=== PATIENT | male | born 1950 | race Caucasian/White ===

== ENCOUNTER → 2016-09-18 | Outpatient (CLI) | payer MEDICARE ==
[2016-09-18 12:17] VITALS: BMI 23.0
== END ==
LOC: MNTWWP 10:43
PROVIDERS: ATTEND Internal Medicine
DX: G20 Parkinson's disease (principal); R13.10 Dysphagia, unspecified
CPT/HCPCS: 97802

== ENCOUNTER 2018-01-15 08:33 | Emergency (ER) | payer MEDICARE ==
[2018-01-15 08:41] VITALS: RESP 18
[2018-01-15] MEDS ORDERED: LIDOCAINE URO-JET JELLY 2% 5 ML KIT URETHRAL ONE (09:31)
--- NOTE | 2018-01-15 09:47 | ED ---
General Adult HPI - General Chief complaint: Recheck/Abnormal Lab/Rx Stated complaint: Feeding tube came out Time Seen by Provider: 01/15/18 08:46 Source: patient, RN notes reviewed, old records reviewed Mode of arrival: wheelchair Limitations: no limitations - History of Present Illness Initial comments: This Patient is a 67-year-old male presents emergency department today with concerns for J-tube removal. Patient reports that today while he is walking with walker his J-tube got caught on the edge of his walker and it pulled out. Patient's reports that it pulled out approximately 10 inches. She then reinserted the tube. Patient states that he's been having poor function with his J-tube. Patient reports that he uses this for his nightly medications and feeding. Patient has a history of Parkinson's disease. He has had this J-tube for the past 3 years. - Related Data Home Medications Medication Instructions Recorded Confirmed ALPRAZolam [Xanax] 0.5 mg PO 5XD PRN 01/15/18 01/15/18 Carbidopa-Levodopa 25-100 mg 1 tab PO TID PRN 01/15/18 01/15/18 [Sinemet 25-100] Carbidopa/Levodopa [Duopa 4.63 1 dose PEJ/J-TUBE DIRECTED 01/15/18 01/15/18 mg-20 mg/ml Susp] Levothyroxine Sodium [Synthroid] 150 mcg PO DAILY 01/15/18 01/15/18 Zolpidem [Ambien] 10 mg PO HS 01/15/18 01/15/18 Allergies Allergy/AdvReac Type Severity Reaction Status Date / Time No Known Allergies Allergy Verified 01/15/18 09:01 Review of Systems ROS Statement: Those systems with pertinent positive or pertinent negative responses have been documented in the HPI. ROS Other: All systems not noted in ROS Statement are negative. Past Medical History Additional Past Medical History / Comment(s): Parkinsons disease, detached retina History of Any Multi-Drug Resistant Organisms: None Reported Additional Past Surgical History / Comment(s): Feeding tube placed, Past Psychological History: No Psychological Hx Reported Smoking Status: Former smoker Past Alcohol Use History: None Reported Past Drug Use History: None Reported General Exam - General Exam Comments Initial Comments: Is a pleasant 59-year-old male. Alert and oriented. No significant distress. Limitations: no limitations General appearance: alert, in no apparent distress Head exam: Present: atraumatic, normocephalic, normal inspection Eye exam: Present: normal appearance, PERRL, EOMI. Absent: scleral icterus, conjunctival injection, periorbital swelling ENT exam: Present: normal exam, mucous membranes moist Neck exam: Present: normal inspection. Absent: tenderness, meningismus, lymphadenopathy Respiratory exam: Present: normal lung sounds bilaterally. Absent: respiratory distress, wheezes, rales, rhonchi, stridor Cardiovascular Exam: Present: regular rate, normal rhythm, normal heart sounds. Absent: systolic murmur, diastolic murmur, rubs, gallop, clicks GI/Abdominal exam: Present: soft, normal bowel sounds, other (Evidence of J- tube over the left upper quadrant. The area is slightly erythematous with some bloody discharge around the entrance site. The J-tube does seem to be placed externally.). Absent: distended, tenderness, guarding, rebound, rigid Extremities exam: Present: normal inspection, full ROM, normal capillary refill. Absent: tenderness, pedal edema, joint swelling, calf tenderness Back exam: Present: normal inspection Course Vital Signs 01/15/18 08:36 Temperature 98.3 F Pulse Rate 102 H Respiratory 18 Rate Blood Pressure 108/67 O2 Sat by Pulse 96 Oximetry Medical Decision Making - Medical Decision Making This patient's a 59-year-old male present emergency department today with chief complaint of J tube displacement. Patient has some bloody discharge around the J-tube site. Patient had his insert the J-tube again. We did do an x-ray with Gastrografin and show a kinked J-tube within the stomach according to radiology. He is in no pain. He otherwise appears in no distress. His surgeon is Dr. Muniz at [facility]. We did discuss the case with on-call surgeon Dr. Maharaj who recommends transfer to patient's original surgeon. I did discuss case with Dr. Espino at [facility] and he does accept the transfer. Patient will be transferred down in private vehicle. We did apply dressing and tape over the adjacent tube site at this time prior to his discharge. - Radiology Data Radiology results: report reviewed Report shows a crit placement of a G-tube. On calling the radiologist they do state that the jejunostomy tube is out of place andwithin the stomach. Disposition Clinical Impression: Jejunostomy tube fell out Disposition: DC/TRNS INTERMEDIATE CARE FAC Condition: Stable Is patient prescribed a controlled substance at d/c from ED?: No Referrals: Zen Encinas MD [Primary Care Provider] - 1-2 days Time of Disposition: 11:42 - Out of Hospital Transfer - Req. Specs Out of Hospital Transfer - Requested Specifics: Other Emergency Center ([facility])
--- NOTE | 2018-01-15 11:01 | XR ---
EXAMINATION TYPE: XR KUB DATE OF EXAM: 01/15/2018 COMPARISON: NONE HISTORY: Pain TECHNIQUE: One view abdominal series FINDINGS: The osseous structures are intact. The bowel gas pattern is nonspecific. There appears to be a gastr ostomy tube with contrast within the stomach and small bowel. No diagnostic evidence of extravasation . Lung bases clear. IMPRESSION: 1. There is to be a G-tube in position with contrast filling the stomach and small bowel.
[2018-01-15 12:10] VITALS: BP 142/83; PULSE 106; TEMP 98.1
== END 2018-01-15 12:09 ==
LOC: EC 08:33
DX: K94.23 Gastrostomy malfunction (principal); G20 Parkinson's disease; Z87.891 Personal history of nicotine dependence; Z79.899 Other long term (current) drug therapy
CPT/HCPCS: 74018; 99284; Q9967

== ENCOUNTER 2020-08-04 11:55 | Inpatient (IN) | payer MEDICARE, OTHER ==
[2020-08-04 13:04] LABS: Glucose,Whole Blood 109 mg/dL (75-99)
[2020-08-04 13:13] LABS: Basophils % (A) 0 %; Eosinophils % (A) 0 %; HCT 47.4 % (39.0-53.0); HGB 15.3 gm/dL (13.0-17.5); Lymphocytes # (A) 1.2 k/uL (1.0-4.8); Lymphocytes % (A) 12 %; MCH 32.8 pg (25.0-35.0); MCHC 32.2 g/dL (31.0-37.0); MCV 101.8 fL (80.0-100.0); Macrocytosis Slight; Monocytes # (A) 0.6 k/uL (0-1.0); Monocytes % (A) 6 %; Neutrophils # (A) 8.1 k/uL (1.3-7.7); Neutrophils % (A) 80 %; Platelet Count 209 k/uL (150-450); RBC 4.65 m/uL (4.30-5.90)
[2020-08-04 13:23] LABS: ALT 49 U/L (4-49); AST 37 U/L (17-59); African American GFR (CKD) 77 (>60 ml/min/1.73 sqM); Alkaline Phosphatase 142 U/L (38-126); Anion Gap 9 mmol/L; Blood Urea Nitrogen 39 mg/dL (9-20); Calcium 9.3 mg/dL (8.4-10.2); Carbon Dioxide 25 mmol/L (22-30); Chloride 110 mmol/L (98-107); Creatine Kinase 309 U/L (55-170); Glucose 114 mg/dL (74-99); Non-African American GFR(CKD) 66 (>60 ml/min/1.73 sqM); Potassium 4.4 mmol/L (3.5-5.1); Sodium 144 mmol/L (137-145); Total Bilirubin 0.8 mg/dL (0.2-1.3); Total Protein 6.4 g/dL (6.3-8.2)
--- NOTE | 2020-08-04 13:23 | ED ---
Altered Mental Status HPI - General Chief Complaint: Altered Mental Status Stated Complaint: AMS Time Seen by Provider: 08/04/20 12:00 Source: patient, EMS Mode of arrival: EMS Limitations: altered mental status - History of Present Illness Initial Comments: 69-year-old male past medical history of Parkinson's who presents to the emergency department with reported aggressive behavior and altered mental status. states that for the previous several days the patient has had worsening aggressive behavior and altered mental status. She states that the patient's baseline he is nonverbal and noncombative. He follows with Dr. Stallworth from neurology who 1.5 weeks ago increased his amantadine from 68.5 to 137 mg. he was then seen in office again on Saturday and they increased his dose to 274 mg. reports that since his medication changes were made the patient has had multiple falls, the last of which was this morning. States the patient fell backwards and he reported that he hit his head on a wooden box however there are no external signs of trauma. Patient also has some healing abrasions to his right burnett and left fourth finger due to previous falls earlier this week. The denies any recent illnesses. No fevers or chills. Reports that his Synthroid was also decreased by Dr. Noyola recently. Denies previous similar episodes. No changes in his bowel or bladder habits. Patient has not slept in the past 24 hours. No other alleviating, precipitating or modifying factors. - Related Data Home Medications Medication Instructions Recorded Confirmed ALPRAZolam [Xanax] 0.5 mg PO 5XD PRN 01/15/18 08/04/20 Carbidopa/Levodopa [Duopa 4.63 1 dose INTRATHECA CONTINUOUS 01/15/18 08/04/20 mg-20 mg/ml Susp] Zolpidem [Ambien] 10 mg PO HS 01/15/18 08/04/20 Amantadine HCl [Gocovri] 68.5 mg PO BID 08/04/20 08/04/20 Levothyroxine Sodium [Synthroid] 125 mcg PO DAILY 08/04/20 08/04/20 Allergies Allergy/AdvReac Type Severity Reaction Status Date / Time Sulfa (Sulfonamide Allergy Unknown Verified 08/04/20 13:10 Antibiotics) Review of Systems ROS Statement: Those systems with pertinent positive or pertinent negative responses have been documented in the HPI. ROS Other: All systems not noted in ROS Statement are negative. Past Medical History Additional Past Medical History / Comment(s): Parkinsons disease, detached retina History of Any Multi-Drug Resistant Organisms: None Reported Additional Past Surgical History / Comment(s): Feeding tube placed, Past Psychological History: No Psychological Hx Reported Past Alcohol Use History: None Reported Past Drug Use History: None Reported General Exam Limitations: altered mental status General appearance: alert, anxious, other (restless) Head exam: Present: atraumatic, normocephalic, normal inspection Eye exam: Present: normal appearance, PERRL, EOMI. Absent: scleral icterus, conjunctival injection, periorbital swelling ENT exam: Present: normal exam, mucous membranes moist Neck exam: Present: normal inspection. Absent: tenderness, meningismus, lymphadenopathy Respiratory exam: Present: normal lung sounds bilaterally. Absent: respiratory distress, wheezes, rales, rhonchi, stridor Cardiovascular Exam: Present: regular rate, normal rhythm, normal heart sounds. Absent: systolic murmur, diastolic murmur, rubs, gallop, clicks GI/Abdominal exam: Present: soft, normal bowel sounds. Absent: distended, tenderness, guarding, rebound, rigid Extremities exam: Present: other (healed abrasions right burnett, ecchymosis full circumferential left 4th digit. ) Back exam: Present: other (ecchymosis right flank) Course Vital Signs 08/04/20 08/04/20 12:01 17:35 Temperature 98.6 F Pulse Rate 97 100 Respiratory 18 22 Rate Blood Pressure 145/81 140/77 O2 Sat by Pulse 94 L 98 Oximetry Medical Decision Making - Medical Decision Making Upon arrival patient is placed into room 24. There are history of systems performed. Laboratory studies were conducted. I did order a CT of the patient's brain as well as an x-ray of the patient's right burnett and left hand. Patient becomes acutely agitated and therefore he is given 50 mg Benadryl. Patient has worsening agitation when attempting imaging and therefore he is given 10 mg of Zyprexa. I spoke with Dr. Noyola in regards to his presentation. He agreed to admit the patient's and placed neurology consultation. I will hold the patient's Amantadine. agreed to the treatment plan and the patie nt is currently waiting up on the floor - Lab Data Result diagrams: 08/05/20 05:58 08/05/20 05:58 Lab Results 08/04/20 08/04/20 08/04/20 Range/Units 12:51 12:51 12:51 WBC 10.0 (3.8-10.6) k/uL RBC 4.65 (4.30-5.90) m/uL Hgb 15.3 (13.0-17.5) gm/dL Hct 47.4 (39.0-53.0) % MCV 101.8 H (80.0-100.0) fL MCH 32.8 (25.0-35.0) pg MCHC 32.2 (31.0-37.0) g/dL RDW 13.0 (11.5-15.5) % Plt Count 209 (150-450) k/uL MPV 8.0 Neutrophils % 80 % Lymphocytes % 12 % Monocytes % 6 % Eosinophils % 0 % Basophils % 0 % Neutrophils # 8.1 H (1.3-7.7) k/uL Lymphocytes # 1.2 (1.0-4.8) k/uL Monocytes # 0.6 (0-1.0) k/uL Eosinophils # 0.0 (0-0.7) k/uL Basophils # 0.0 (0-0.2) k/uL Macrocytosis Slight PT 11.2 (9.0-12.0) sec INR 1.1 (<1.2) APTT 27.1 (22.0-30.0) sec Sodium (137-145) mmol/L Potassium (3.5-5.1) mmol/L Chloride (98-107) mmol/L Carbon Dioxide (22-30) mmol/L Anion Gap mmol/L BUN (9-20) mg/dL Creatinine (0.66-1.25) mg/dL Est GFR (CKD-EPI)AfAm (>60 ml/min/1.73 sqM) Est GFR (CKD-EPI)NonAf (>60 ml/min/1.73 sqM) Glucose (74-99) mg/dL POC Glucose (mg/dL) (75-99) mg/dL POC Glu Rehabilitation Caseworker ID Calcium (8.4-10.2) mg/dL Total Bilirubin (0.2-1.3) mg/dL AST (17-59) U/L ALT (4-49) U/L Alkaline Phosphatase (38-126) U/L Creatine Kinase (55-170) U/L Troponin I (0.000-0.034) ng/mL Total Protein (6.3-8.2) g/dL Albumin (3.5-5.0) g/dL TSH (0.465-4.680) mIU/L Free T4 (0.78-2.19) ng/dL Urine Color Yellow Urine Appearance Clear (Clear) Urine pH 6.5 (5.0-8.0) Ur Specific [place] 1.028 (1.001-1.035) Urine Protein 1+ H (Negative) Urine Glucose (UA) Negative (Negative) Urine Ketones 1+ H (Negative) Urine Blood Negative (Negative) Urine Nitrite Negative (Negative) Urine Bilirubin Negative (Negative) Urine Urobilinogen 2.0 (<2.0) mg/dL Ur Leukocyte Esterase Negative (Negative) Urine RBC 1 (0-5) /hpf Urine WBC 3 (0-5) /hpf Ur Squamous Epith Cells 1 (0-4) /hpf Urine Mucus Occasional H (None) /hpf 08/04/20 08/04/20 08/04/20 Range/Units 12:51 12:51 13:02 WBC (3.8-10.6) k/uL RBC (4.30-5.90) m/uL Hgb (13.0-17.5) gm/dL Hct (39.0-53.0) % MCV (80.0-100.0) fL MCH (25.0-35.0) pg MCHC (31.0-37.0) g/dL RDW (11.5-15.5) % Plt Count (150-450) k/uL MPV Neutrophils % % Lymphocytes % % Monocytes % % Eosinophils % % Basophils % % Neutrophils # (1.3-7.7) k/uL Lymphocytes # (1.0-4.8) k/uL Monocytes # (0-1.0) k/uL Eosinophils # (0-0.7) k/uL Basophils # (0-0.2) k/uL Macrocytosis PT (9.0-12.0) sec INR (<1.2) APTT (22.0-30.0) sec Sodium 144 (137-145) mmol/L Potassium 4.4 (3.5-5.1) mmol/L Chloride 110 H (98-107) mmol/L Carbon Dioxide 25 (22-30) mmol/L Anion Gap 9 mmol/L BUN 39 H (9-20) mg/dL Creatinine 1.12 (0.66-1.25) mg/dL Est GFR (CKD-EPI)AfAm 77 (>60 ml/min/1.73 sqM) Est GFR (CKD-EPI)NonAf 66 (>60 ml/min/1.73 sqM) Glucose 114 H (74-99) mg/dL POC Glucose (mg/dL) 109 H (75-99) mg/dL POC Glu Rehabilitation Caseworker ID Abe Marie Calcium 9.3 (8.4-10.2) mg/dL Total Bilirubin 0.8 (0.2-1.3) mg/dL AST 37 (17-59) U/L ALT 49 (4-49) U/L Alkaline Phosphatase 142 H (38-126) U/L Creatine Kinase 309 H (55-170) U/L Troponin I 0.026 (0.000-0.034) ng/mL Total Protein 6.4 (6.3-8.2) g/dL Albumin 4.0 (3.5-5.0) g/dL TSH <0.015 L (0.465-4.680) mIU/L Free T4 1.82 (0.78-2.19) ng/dL Urine Color Urine Appearance (Clear) Urine pH (5.0-8.0) Ur Specific [place] (1.001-1.035) Urine Protein (Negative) Urine Glucose (UA) (Negative) Urine Ketones (Negative) Urine Blood (Negative) Urine Nitrite (Negative) Urine Bilirubin (Negative) Urine Urobilinogen (<2.0) mg/dL Ur Leukocyte Esterase (Negative) Urine RBC (0-5) /hpf Urine WBC (0-5) /hpf Ur Squamous Epith Cells (0-4) /hpf Urine Mucus (None) /hpf - EKG Data EKG Comments: EKG demonstrates a normal sinus rhythm with a ventricular rate of 94. CA interval 174. QRS 180. QTC of 500. No acute ST segment elevations. Artifact secondary to simulator Disposition Clinical Impression: Acute encephalopathy, Parkinsons disease, Aggressive behavior, Medication adverse effect Disposition: ADMITTED IP TO THIS [facility] Condition: Stable Is patient prescribed a controlled substance at d/c from ED?: No Decision to Admit Reason: Admit from EC Decision Date: 08/04/20 Decision Time: 14:26
[2020-08-04 13:35] LABS: INR 1.1 (<1.2); Partial Thromboplastin Time 27.1 sec (22.0-30.0); Prothrombin Time 11.2 sec (9.0-12.0)
[2020-08-04] MEDS ORDERED: diphenhydrAMINE 50 MG/ML 1 ML VIAL IVP STA (14:09)
[2020-08-04 14:27] LABS: T4, Free (Free Thyroxine) 1.82 ng/dL (0.78-2.19)
[2020-08-04] MEDS ORDERED: NALOXONE 0.4 MG/ML 1 ML VIAL IV PRN (14:28)
[2020-08-04] MEDS ORDERED: OLANZapine 10 MG VIAL IM STA (15:13)
[2020-08-04 16:07] LABS: Appearance,Urine Clear (Clear); Bilirubin,Urine Negative (Negative); Blood,Urine Negative (Negative); Color,Urine Yellow; Glucose,Urine (UA) Negative (Negative); Ketones,Urine 1+ (Negative); Leukocyte Esterase,Urine Negative (Negative); Mucus,Urine Occasional /hpf; Nitrite,Urine Negative (Negative); PH, Urine 6.5 (5.0-8.0); Protein,Urine 1+ (Negative); RBC,Urine 1 /hpf (0-5); Specific Gravity,Urine 1.028 (1.001-1.035); Squamous Epithelial Cell,Urine 1 /hpf (0-4); WBC,Urine 3 /hpf (0-5)
--- NOTE | 2020-08-04 16:25 | XR ---
EXAMINATION TYPE: XR chest 1V DATE OF EXAM: 08/04/2020 COMPARISON: NONE HISTORY: Altered mental status and weakness. TECHNIQUE: Single frontal view of the chest is obtained. FINDINGS: There is chronic parenchymal change without suspicious focal air space opacity, pleural ef fusion, or pneumothorax seen. The cardiac silhouette size is mildly enlarged. The osseous structur es are intact. Bilateral overlying neck or intracranial stimulator devices are partially imaged. IMPRESSION: Mild cardiomegaly and chronic changes without acute pulmonary process.
--- NOTE | 2020-08-04 16:27 | XR ---
EXAMINATION TYPE: XR tibia fibula LT DATE OF EXAM: 08/04/2020 CLINICAL HISTORY: Fall injury with pain TECHNIQUE: Two views of the left leg are obtained. COMPARISON: None. FINDINGS: There is no acute fracture or dislocation seen in the left tibia or fibula. [place] osseou s structures are demineralized. Mild to moderate tricompartment joint space loss with mild spurring o f the left knee. The ankle mortise symmetry is preserved. Overlying clothing or blanket material is p resent. IMPRESSION: There is no acute fracture or dislocation seen in the left tibia or fibula.
--- NOTE | 2020-08-04 16:30 | XR ---
EXAMINATION TYPE: XR hand complete LT DATE OF EXAM: 08/04/2020 CLINICAL HISTORY: Falling injury with pain TECHNIQUE: Frontal, lateral and oblique images of the left hand are obtained. COMPARISON: None. FINDINGS: [place] osseous structures are demineralized. There is no acute fracture/dislocation evident in the left hand. Moderate narrowing and mild to moderate spurring throughout the PIP and DIP joints of the phalanges. Severe triscaphe joint space narrowing with joint space sclerosis and mild to mode rate spurring. Mild to moderate narrowing and spurring of base of first metacarpal. Peripheral IV rachel ng the dorsal aspect of the distal forearm is partially imaged. IMPRESSION: There is no acute fracture or dislocation in the left hand.
--- NOTE | 2020-08-04 17:14 | CT ---
EXAMINATION TYPE: CT brain raymundo uribe DATE OF EXAM: 08/04/2020 COMPARISON: None HISTORY: Mental status changes. CT DLP: 1475.9 mGycm Automated exposure control for dose reduction was used. TECHNIQUE: CT scan of the head and cervical spine are performed without contrast. FINDINGS: There is artifact on the exam. There is no acute intracranial hemorrhage, mass effect, or midline shift identified. The ventricles and sulci are within normal limits in size. Right frontal craniotomies, metallic leads are present coursing into the region of the thalami bilaterally. The globes are intact and the visualized sinuses are clear. There is some inflammatory change in the right maxillary sinus Cervical spine is visualized in its entirety from C1 through upper thoracic levels and demonstrates s atisfactory alignment. There is an ossific density at the level of the dens which is not felt likely to be acute, slight posterior displacement in relation to the dens, lesion appears well-corticated. 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 There is multilevel spondy losis. Anterolisthesis grade 1 C5-6, C6-7, there is loss of disc height at intervertebral levels, diana pect segmentation anomaly at C4-5, C5-6. Is multilevel facet arthropathy, foraminal encroachment. The re is accentuated lordosis present. Prevertebral soft tissue appears within normal limits. The C1-C 2 articulation is unremarkable. There is patchy density in the upper lobes peripherally. Generators present over the pectoral regions. Arthropathy is noted at the temporomandibular joints. IMPRESSION: 1. There is no acute fracture or dislocation evident in the cervical spine. 2. No acute intracranial hemorrhage, mass effect, or midline shift is seen. 3. Correlate for possible Covid pneumonia.
[2020-08-04] MEDS: CARBIDOPA MISCELLANE SCH (18:12)
[2020-08-04] MEDS: LEVODOPA MISCELLANE SCH (18:12)
[2020-08-04] MEDS ORDERED: ZIPRASIDONE 20 MG VIAL IM STA (20:29)
[2020-08-04] MEDS: HEPARIN SODIUM,PORCINE/PF 5,000 UNIT/0.5 ML SYRINGE SQ SCH (21:45)
[2020-08-04] MEDS: SODIUM CHLORIDE 0.9% 1,000 ML IV SCH (22:59)
[2020-08-05] MEDS ORDERED: ZIPRASIDONE 20 MG VIAL IM STA ×2 (00:32→22:16)
[2020-08-05] MEDS: SODIUM CHLORIDE 0.9% 1,000 ML IV SCH ×2 (06:06→17:38)
[2020-08-05] MEDS: LEVOTHYROXINE 125 MCG TAB PO SCH (06:06)
[2020-08-05] MEDS: HEPARIN SODIUM,PORCINE/PF 5,000 UNIT/0.5 ML SYRINGE SQ SCH ×2 (09:41→17:25)
[2020-08-05] MEDS: PANTOPRAZOLE 40 MG/10 ML VIAL IVP SCH (09:41)
--- NOTE | 2020-08-05 09:58 | P.CNNES ---
History of Present Illness Consult date: 08/05/20 Requesting physician: Joanna Cunningham Reason for Consult: acute encephalopathy, aggressive behavior History of Present Illness: This is a 69-year-old gentleman with medical history of Parkinson's disease, hypothyroidism, detached retina over the right who presented to the emergency department on 08/04/2020 for altered mental status and aggressive behavior. History is predominately obtained from the medical records and the patient nurse since patient is unable to provide all history. Per the medical record the stated that the patient has been having worsening of his mentation and been having aggressive behavior. Patient has not slept in the past 24 hours. It is reported that the patient had no fevers or chills. Not sure what the patient baseline neurological status. Patient does follow up with a Dr. Enohc Stallworth (neurologist) and is seems adequate the patient had increased amantadine from 68.5mg to 137mg about half 1 1/2 weeks ago then was increased to 274 mg this past Saturday. The noticed that the since the increase of medication the patient has been having more falls in the last one was a the morning prior to present thing to the hospital. Patient is been falling backward and he has had on a wooden box but she denied any external trauma. She is also on sentiments intrathecal continuous dose, patient is on Ambien 10 mg daily at bedtime, Synthroid, Xanax 0.5 mg 1 tablet 5 times a day as needed. It seems the patient aggressive behavior is better today than what he presented with. Patient notified me that he has history of Parkinson's disease but could not tell me for how long and is on Pump. Some of Work-up in the hospital consisted of: CT of the head is reported as no acute intracranial hemorrhage, mass effect or midline shift is seen. It seems that there is a metallic currently in the regions of the thalami bilaterally. CT cervical was reported as there is no acute fracture or dislocation evident in the cervical spine. It is mentioned to correlate for possible [place] pneumonia. White blood cell is 10.0. MCV is 101.8 and the hemoglobin and hematocrit are normal. Initial serum glucose 114. CK level is 309 which is slightly elevated. TSH is less than 0.015 (low) but the free T4 is 1.82 which is normal Review of Systems Review of system is limited but the prior positive and negative as per HPI Past Medical History Additional Past Medical History / Comment(s): Parkinsons disease, detached retina, thyroid removed dt pre cancerous cells History of Any Multi-Drug Resistant Organisms: None Reported Additional Past Surgical History / Comment(s): Feeding tube placed, Past Psychological History: No Psychological Hx Reported Smoking Status: Former smoker Past Alcohol Use History: None Reported Past Drug Use History: None Reported Medications and Allergies Home Medications Medication Instructions Recorded Confirmed Type ALPRAZolam [Xanax] 0.5 mg PO 5XD PRN 01/15/18 08/04/20 History Carbidopa/Levodopa [Duopa 4.63 1 dose INTRATHECA CONTINUOUS 01/15/18 08/04/20 History mg-20 mg/ml Susp] Zolpidem [Ambien] 10 mg PO HS 01/15/18 08/04/20 History Amantadine HCl [Gocovri] 68.5 mg PO BID 08/04/20 08/04/20 History Levothyroxine Sodium [Synthroid] 125 mcg PO DAILY 08/04/20 08/04/20 History Allergies Allergy/AdvReac Type Severity Reaction Status Date / Time Sulfa (Sulfonamide Allergy Unknown Verified 08/04/20 13:10 Antibiotics) Physical Examination - Vital Signs Vital Signs: Vital Signs Temp Pulse Pulse Resp BP BP Pulse Ox 08/05/20 08:00 97.9 F 85 23 135/64 95 08/05/20 01:01 98.5 F 93 20 119/62 93 L 08/04/20 21:52 98.2 F 91 20 150/81 94 L 08/04/20 17:53 98 F 94 16 132/70 94 L 08/04/20 17:35 100 22 140/77 98 08/04/20 12:01 98.6 F 97 18 145/81 94 L Intake and Output 08/04/20 08/05/20 08/05/20 22:59 06:59 14:59 Output Total 140 Balance -140 Output: Post Void Residual 140 Other: Voiding Method Urinal Urinal Diaper Diaper Incontinent Incontinent # Voids 2 2 Weight 73.936 kg 73.936 kg GENERAL: The patient is lying in bed and is not in acute distress. CHEST: The heart rate is regular rate rhythm. No murmurs to auscultation. LUNG: Clear to auscultation bilaterally no wheezing noted throughout. Not labored breathing. ABDOMEN/GI: Bowel sounds present in all 4 quadrants. No tenderness to palpation throughout. Has PEG tube. NEUROLOGICAL: Higher mental function: The patient is awake, alert, oriented to self and time. He could not tell me name of place and with options he did not respond. Patient is able to name coffee cup. He correctly answered name of [facility] and [place] Patient is following simple commands. No aphasia and no neglect. Cranial nerves: He has detached right retina (blind). While left eye is about 4mm and reactive to light. He had mask-like face. No facial weakness noted. Has mild to moderate dysarthria is noted. Rest of cranial nerves could not be assessed because of cooperation. Motor: Gait is deferred. The strength is able to move all extremities above gravity without focality. Bilateral hand chief executive are 5/5. Normal tone. No cogwheel rigidity. He would have occasional tremor of hand but did not seem resting tremor and were brief. Cerebellum: Could not assess. Sensation: Could not assess. Reflexes (right/left): 2+ throughout. Plantars are downgoing bilaterally. Results Urine is negative for urinary tract infection. SARS-COV2 PCR is not detected. RSV PCR is not detect. - Laboratory Findings CBC and BMP: 08/04/20 12:51 08/04/20 12:51 Abnormal Lab Findings: Abnormal Labs 08/04/20 08/04/20 08/04/20 12:51 12:51 12:51 MCV 101.8 H Neutrophils # 8.1 H Chloride 110 H BUN 39 H Glucose 114 H POC Glucose (mg/dL) Alkaline Phosphatase 142 H Creatine Kinase 309 H TSH <0.015 L Urine Protein 1+ H Urine Ketones 1+ H Urine Mucus Occasional H 08/04/20 13:02 MCV Neutrophils # Chloride BUN Glucose POC Glucose (mg/dL) 109 H Alkaline Phosphatase Creatine Kinase TSH Urine Protein Urine Ketones Urine Mucus Assessment and Plan Assessment: Patient aggression behavioral seems to be due to medication effect (amantadine)---seems to improved Parkinson's disease (on Carbidopa-Levodopa pump) Macrocytosis Hypothyroidism Plan: Continue carbidopa/levodopa via PEG tube. Agree with holding Amantadine. Amantadine can cause aggressive behavior symptom s. Consulted physical therapy and occupation therapy. I ordered Vitamin B12 and folate levels since patient has macrocytosis. Recommend Nuplazid (pimavanserin) as antipsychotic (but not available as f ormulary in the hospital) so can be prescribed as outpatient if patient continues to have psychotic behavior. Otherwise can try Seroquel 25mg qhs (and titrate up if needed). An EEG is not warranted at this time. Avoid any opiate/narcotic or sedative that would affect the patient's mentation. Will defer the rest of medical management to the primary team. Upon discharge the patient needs to follow-up with his Neurologist as outpatient (Dr. Enoch Stallworth) within 1-2 weeks. The plan is discussed with the patient's nurse. I attempted to contact the patient in the AM but no response (will try later). Manish Tolentino MD Neuro-Hospitalist. Time with Patient: Greater than 30
[2020-08-05 11:05] LABS: Basophils # (A) 0.04 X 10*3/uL (0.00-0.10); Basophils % (A) 0.4 %; Eosinophils # (A) 0.05 X 10*3/uL (0.04-0.35); Eosinophils % (A) 0.6 %; HCT 45.1 % (39.6-50.0); HGB 14.9 g/dL (13.0-17.0); Lymphocytes # (A) 1.97 X 10*3/uL (0.90-5.00); Lymphocytes % (A) 21.9 %; MCH 33.8 pg (27.0-32.0); MCV 102.3 fL (80.0-97.0); Mean Platelet Volume 11.7 fL (9.5-12.2); Monocytes # (A) 0.88 X 10*3/uL (0.20-1.00); Monocytes % (A) 9.8 %; Neutrophils # (A) 6.01 X 10*3/uL (1.80-7.70); Neutrophils % (A) 66.9 %; Platelet Count 192 X 10*3/uL (140-440); RBC 4.41 X 10*6/uL (4.40-5.60); RDW 12.6 % (11.5-14.5); WBC 8.99 X 10*3/uL (4.50-10.00)
[2020-08-05 14:11] LABS: Albumin 4.1 g/dL (3.80-4.90); Albumin/Globulin Ratio 2.16 (1.60-3.17); Anion Gap 9.8 mmol/L (4.00-12.00); Carbon Dioxide 25.2 mmol/L (21.6-31.8); Globulin 1.9 g/dL (1.6-3.3); Non-African American GFR(CKD) 75.9 (60.0-200.0); Potassium 4.1 mmol/L (3.5-5.5); Total Bilirubin 1.1 mg/dL (0.2-1.2)
--- NOTE | 2020-08-05 14:37 | P.HPIM ---
History of Present Illness H&P Date: 08/05/20 HISTORY OF PRESENT ILLNESS This is a 69-year-old male patient of Dr. Noyola with past medical history of Parkinson's disease status post intrathecal dopamine pump, hypothyroidism, vitamin D deficiency, detached right retina. His neurologist is Dr. Stallworth and he had recent family increased amantadine from 68.5 mg 237 mg one and half weeks ago and then increased to 174 mg on Saturday. Since the dose was increased, patient has had increasing weakness with falls, falling backward. Patient was brought into [facility] emergency center for evaluation. He was afebrile, heart rate 97, blood pressure 145/81, pulse ox 94% on room air. Last evening, patient received Zyprexa, Geodon and during evaluation today, aggressive behavior was improved. Patient has been seen by neurology with recommendations to continue carbidopa/levodopa via PEG tube, hold amantadine, consult PT and OT. Vitamin B12 and folate levels were ordered. Dr. Tolentino recommended Nuplazid (primavanserin) antipsychotic but not available in the hospital but can't be prescribed as an outpatient. Otherwise Seroquel 25 mg at bedtime and titrate up if needed. Recommendations also follow-up with his neurologist in 1-2 weeks after discharge. Laboratory studies: CBC was unremarkable. Electrolytes unremarkable. BUN 39 and creatinine 1.12. Blood sugar 114. SARS-CoV-2, RSV, and influenza not detected. CAT scan of the brain showed no acute intracranial hemorrhage, mass effect or midline shift. CAT scan of the cervical spine showed no acute fracture or dislocation. CAT scan mentions correlate for possible Covid pneumonia. Left hand x-ray shows no acute fracture or dislocation. Left tib-fib x-ray shows no acute fracture or dislocation. Chest x-ray reveals mild cardiomegaly and chronic changes without acute pulmonary process. REVIEW OF SYSTEMS Constitutional: No fever, no chills, no night sweats. No weight change. No weakness, fatigue or lethargy. No daytime sleepiness. EENT: No headache. No blurred vision or double vision, no loss of vision. No loss of Hearing, no ringing in the ears, no dizziness. No nasal drainage or congestion. No epistaxis. No sore throat. Lungs: No shortness of breath, cough, no sputum production. No wheezing. Cardiovascular: No chest pain, no lower extremity edema. No palpitations. No paroxysmal nocturnal dyspnea. No orthopnea. No lightheadedness or dizziness. No syncopal episodes. Abdominal: No abdominal pain. No nausea, vomiting. No diarrhea. No constipation. No bloody or tarry stools.. No loss of appetite. Genitourinary: No dysuria, increased frequency, urgency. No urinary retention. Musculoskeletal: No myalgias. No muscle weakness, no gait dysfunction, no frequent falls. No back pain. No neck pain. Integumentary: No wounds, no lesions. No rash or pruritus. No unusual bruising. No change in hair or nails. Neurologic: No aphasia. No facial droop. No change in mentation. No head injury. No headache. No paralysis. No paresthesia. Psychiatric: No depression. No anxiety. No mood swings. Endocrine: No abnormal blood sugars. No weight change. No excessive sweating or thirst. No cold intolerance. MEDICAL HISTORY Parkinson's disease status post intrathecal dopamine pump, hypothyroidism, vitamin D deficiency, detached right retina. SURGICAL HISTORY Thyroidectomy in 2004, deep brain stimulator in 2011, right eye retinal detachment in 2009, PEG tube insertion, intrathecal dopamine pump. SOCIAL HISTORY Patient smoked a pipe for 5 years and quit in 1987. He drinks 1-2 cups of caffeine per day. No marijuana use and no alcohol use. He lives at home with his . FAMILY HISTORY Father at age 84 from colon cancer. Mother at age 80 from lung cancer. Patient has 2 sisters and one has MS. Patient has 2 sons with no major medical problems. Patient has one daughter with no major medical problems.. PHYSICAL EXAMINATION Gen: This is a 69-year-old male patient resting in bed. He appears to be in no acute distress. HEENT: Head is atraumatic, normocephalic. Pupils round. Sclerae is anicteric. 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 Oral mucous membranes are dry. NECK: Supple. No JVD. No lymphadenopathy. No thyromegaly. LUNGS: Clear to auscultation. No wheezes or rhonchi. No intercostal retractio ns. HEART: Regular rate and rhythm. 2/6 systolic ejection murmur. ABDOMEN: Soft. Bowel sounds are present. No masses. No tenderness. PEG tube site with no signs of drainage, erythema. EXTREMITIES: No pedal edema. No calf tenderness. NEUROLOGICAL: Patient is awake, alert and oriented to person and able to follow simple commands no aphasia. Masklike face. Bilateral hand plant technician strong and equal. ASSESSMENT AND PLAN 1. Aggressive behavior with acute psychosis secondary to amantadine recently increased dosing. Amantadine on hold. Consult with neurology appreciated. Patient will be started on Seroquel 25 mg at hs. 2. Parkinson's disease on dopamine pump. Patient's to bring in pump device from home. Hold amantadine. Continue carbidopa levodopa via pump. 3. Moderate protein calorie malnutrition and risk for aspiration, chronic PEG tube. Dietitian consult to resume PEG tube feedings. 4. Hypothyroidism. Continue levothyroxine 125 g daily. 5. Vitamin D deficiency, stable. 6. Macrocytosis. Vitamin B12 and folate levels ordered. 7. GI prophylaxis. Pepcid 20 milligrams daily per PEG tube. 8. DVT prophylaxis. Heparin subcu. 9. COVID-19 testing negative. Patient has been hospitalized during a pandemic. Patient will be admitted to the hospital for a minimum of 2 night stay. DISCHARGE PLAN To be determined. Most likely return home. PT and OT consults. Impression and plan of care have been directed as dictated by the signing physician. Sofía Kulkarni nurse practitioner acting as scribe for signing physician. Past Medical History Additional Past Medical History / Comment(s): Parkinsons disease, detached retina, thyroid removed dt pre cancerous cells History of Any Multi-Drug Resistant Organisms: None Reported Additional Past Surgical History / Comment(s): Feeding tube placed, Past Psychological History: No Psychological Hx Reported Smoking Status: Former smoker Past Alcohol Use History: None Reported Past Drug Use History: None Reported Medications and Allergies Home Medications Medication Instructions Recorded Confirmed Type ALPRAZolam [Xanax] 0.5 mg PO 5XD PRN 01/15/18 08/04/20 History Carbidopa/Levodopa [Duopa 4.63 1 dose INTRATHECA CONTINUOUS 01/15/18 08/04/20 History mg-20 mg/ml Susp] Zolpidem [Ambien] 10 mg PO HS 01/15/18 08/04/20 History Amantadine HCl [Gocovri] 68.5 mg PO BID 08/04/20 08/04/20 History Levothyroxine Sodium [Synthroid] 125 mcg PO DAILY 08/04/20 08/04/20 History Allergies Allergy/AdvReac Type Severity Reaction Status Date / Time Sulfa (Sulfonamide Allergy Unknown Verified 08/04/20 13:10 Antibiotics) Physical Exam Vitals: Vital Signs Temp Pulse Pulse Resp BP BP Pulse Ox 08/05/20 01:01 98.5 F 93 20 119/62 93 L 08/04/20 21:52 98.2 F 91 20 150/81 94 L 08/04/20 17:53 98 F 94 16 132/70 94 L 08/04/20 17:35 100 22 140/77 98 08/04/20 12:01 98.6 F 97 18 145/81 94 L Intake and Output 08/04/20 08/05/20 08/05/20 22:59 06:59 14:59 Output Total 140 Balance -140 Output: Post Void Residual 140 Other: Voiding Method Urinal Urinal Diaper Diaper Incontinent Incontinent # Voids 2 2 Weight 73.936 kg Results CBC & Chem 7: 08/05/20 05:58 08/04/20 12:51 Labs: Abnormal Lab Results - Last 24 Hours (Table) 08/04/20 08/04/20 08/04/20 Range/Units 12:51 12:51 12:51 MCV 101.8 H (80.0-100.0) fL Neutrophils # 8.1 H (1.3-7.7) k/uL Chloride 110 H (98-107) mmol/L BUN 39 H (9-20) mg/dL Glucose 114 H (74-99) mg/dL POC Glucose (mg/dL) (75-99) mg/dL Alkaline Phosphatase 142 H (38-126) U/L Creatine Kinase 309 H (55-170) U/L TSH <0.015 L (0.465-4.680) mIU/L Urine Protein 1+ H (Negative) Urine Ketones 1+ H (Negative) Urine Mucus Occasional H (None) /hpf 08/04/20 Range/Units 13:02 MCV (80.0-100.0) fL Neutrophils # (1.3-7.7) k/uL Chloride (98-107) mmol/L BUN (9-20) mg/dL Glucose (74-99) mg/dL POC Glucose (mg/dL) 109 H (75-99) mg/dL Alkaline Phosphatase (38-126) U/L Creatine Kinase (55-170) U/L TSH (0.465-4.680) mIU/L Urine Protein (Negative) Urine Ketones (Negative) Urine Mucus (None) /hpf Thrombosis Risk Factor Assmnt - Choose All That Apply Each Risk Factor Represents 2 Points: Age 61-74 years Thrombosis Risk Factor Assessment Total Risk Factor Score: 2 Thrombosis Risk Factor Assessment Level: Low Risk
[2020-08-05] MEDS: CARBIDOPA MISCELLANE SCH (17:25)
[2020-08-05] MEDS: LEVODOPA MISCELLANE SCH (17:25)
[2020-08-05] MEDS ORDERED: ACETAMINOPHEN IV (For NPO) 1,000 MG in EMPTY BAG 1 BAG IVPB PRN (20:09)
[2020-08-05 20:45] LABS: Folate, Serum >24.0 ng/mL
[2020-08-05] MEDS ORDERED: QUEtiapine 25 MG TAB PO SCH (21:00)
[2020-08-06] MEDS: HEPARIN SODIUM,PORCINE/PF 5,000 UNIT/0.5 ML SYRINGE SQ SCH ×3 (00:45→17:31)
[2020-08-06] MEDS: LEVOTHYROXINE 125 MCG TAB PO SCH (06:51)
[2020-08-06] MEDS: FAMOTIDINE 20 MG TAB PEG/G-TUBE SCH (09:10)
[2020-08-06] MEDS: PANTOPRAZOLE 40 MG/10 ML VIAL IVP SCH (09:11)
[2020-08-06] MEDS: DEXTROSE 5%-0.45% NACL 1,000 ML IV SCH (09:12)
[2020-08-06] MEDS: CARBIDOPA MISCELLANE SCH (09:13)
[2020-08-06] MEDS: LEVODOPA MISCELLANE SCH (09:13)
[2020-08-06] MEDS: SODIUM CHLORIDE 0.9% 1,000 ML IV SCH (09:37)
--- NOTE | 2020-08-06 09:58 | P.PN ---
Subjective Progress Note Date: 08/06/20 HISTORY OF PRESENT ILLNESS This is a 69-year-old male patient of mine with past medical history of Parkinson's disease status post intrathecal dopamine pump, hypothyroidism, vitamin D deficiency, detached right retina. His neurologist is Dr. Stallworth and he had recent family increased amantadine from 68.5 mg 237 mg one and half weeks ago and then increased to 174 mg on Saturday. Since the dose was increased, patient has had increasing weakness with falls, falling backward. Patient was brought into [facility] emergency center for evaluation. He was afebrile, heart rate 97, blood pressure 145/81, pulse ox 94% on room air. Last evening, patient received Zyprexa, Geodon and during evaluation today, aggressive behavior was improved. Patient has been seen by neurology with recommendations to continue carbidopa/levodopa via PEG tube, hold amantadine, consult PT and OT. Vitamin B12 and folate levels were ordered. Dr. Tolentino recommended Nuplazid (primavanserin) antipsychotic but not available in the hospital but can't be prescribed as an outpatient. Otherwise Seroquel 25 mg at bedtime and titrate up if needed. Recommendations also follow-up with his neurologist in 1-2 weeks after discharge. Laboratory studies: CBC was unremarkable. Electrolytes unremarkable. BUN 39 and creatinine 1.12. Blood sugar 114. SARS-CoV-2, RSV, and influenza not dete cted. CAT scan of the brain showed no acute intracranial hemorrhage, mass effect or midline shift. CAT scan of the cervical spine showed no acute fracture or dislocation. CAT scan mentions correlate for possible Covid pneumonia. Left hand x-ray shows no acute fracture or dislocation. Left tib-fib x-ray shows no acute fracture or dislocation. Chest x-ray reveals mild cardiomegaly and chronic changes without acute pulmonary process. 08/06: Patient sitting up in bed and is more awake and alert today he continues to be a bit confused, he did receive Geodon 20 mg IM yesterday, his was at bed side and she was questioning whether or not the patient to be transferred to [facility] where his neurologist is, however I told her we can start the Duo-Dopa here in the hospital during the day and she is in charge and that she would be taken off at night, and resume his feeding at nighttime, patient is able to use some water, patient already was seen in consultation by neurology we'll continue the current treatment plan, patient can be discharged home on Saturday with Nuplazid I will try to get some samples from the office. REVIEW OF SYSTEMS Constitutional: No fever, no chills, no night sweats. No weight change. No weakness, fatigue or lethargy. No daytime sleepiness. EENT: No headache. No blurred vision or double vision, no loss of vision. No loss of Hearing, no ringing in the ears, no dizziness. No nasal drainage or congestion. No epistaxis. No sore throat. Lungs: No shortness of breath, cough, no sputum production. No wheezing. Cardiovascular: No chest pain, no lower extremity edema. No palpitations. No paroxysmal nocturnal dyspnea. No orthopnea. No lightheadedness or dizziness. No syncopal episodes. Abdominal: No abdominal pain. No nausea, vomiting. No diarrhea. No constipation. No bloody or tarry stools.. No loss of appetite. Genitourinary: No dysuria, increased frequency, urgency. No urinary retention. Musculoskeletal: No myalgias. No muscle weakness, no gait dysfunction, no frequent falls. No back pain. No neck pain. Integumentary: No wounds, no lesions. No rash or pruritus. No unusual bruising. No change in hair or nails. Neurologic: No aphasia. No facial droop. No change in mentation. No head injury. No headache. No paralysis. No paresthesia. Psychiatric: patient does appear to have some psychosis that appears to be better. Endocrine: No abnormal blood sugars. No weight change. No excessive sweating or thirst. No cold intolerance. PHYSICAL EXAMINATION Gen: This is a 69-year-old male patient resting in bed. He appears to be in no acute distress. HEENT: Head is atraumatic, normocephalic. Pupils round. Sclerae is anicteric. 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 Oral mucous membranes are dry, there is dopamine reservoirs bilaterally. NECK: Supple. No JVD. No lymphadenopathy. No thyromegaly. LUNGS: there is decreased breath sounds at the bases, few rhonchi, no expiratory wheezes, no chest wall tenderness, no intercostal retractions, bilateral batteries and upper chest. HEART: First heart sound is depressed, second heart sound is normal, there is no gallop or murmur, no rubs or heaves. ABDOMEN: Soft. Bowel sounds are present. No masses. No tenderness. PEG tube site with no signs of drainage, erythema. EXTREMITIES: No pedal edema. No calf tenderness. dorsalis pedis +2 bilaterally, bilateral hammertoes. NEUROLOGICAL: Patient is awake, alert and oriented to person and able to follow simple commands no aphasia. Masklike face. Bilateral hand proofer apprentice strong and equal, significant spasticity in the neck and upper torso. ASSESSMENT AND PLAN 1. Aggressive behavior with acute psychosis secondary to amantadine recently increased dosing. Amantadine on hold. Consult with neurology appreciated. continue to use Seroquel 25 mg orally at bedtime, we may have to use Geodon 20 mg IM as needed, patient will go home on Nuplazid I will try to get samples from the office. 2. Parkinson's disease on dopamine pump. Patient's to bring in pump device from home. Hold amantadine. Continue carbidopa levodopa via pump. physical therapy evaluation. 3. Moderate protein calorie malnutrition and risk for aspiration, chronic PEG tube. Dietitian consult to resume PEG tube feedings. 4. Hypothyroidism. Continue levothyroxine 125 g daily. 5. Vitamin D deficiency, stable. 6. Macrocytosis. Vitamin B12 and folate levels ordered. 7. GI prophylaxis. Pepcid 20 milligrams daily per PEG tube. 8. DVT prophylaxis. continue heparin 5000 units subcutaneously every 12 hours. 9. COVID-19 testing negative. Patient has been hospitalized during a pandemic. DISCHARGE PLAN To be determined. Most likely return home. PT and OT consults. Objective - Vital Signs Vital signs: Vital Signs Temp 98.4 F 08/06/20 08:00 Pulse 89 08/06/20 08:00 Resp 22 08/06/20 08:00 BP 134/78 08/06/20 08:00 Pulse Ox 97 08/06/20 08:00 Intake & Output 08/05/20 08/06/20 08/06/20 18:59 06:59 18:59 Intake Total 1100 Balance 1100 Weight 73.936 kg 79.5 kg Intake: IV 1100 Sodium Chloride 0.9% 1, 1100 000 ml @ 100 mls/hr IV . Q10H [facility] Rx#:[id number] Other: Voiding Method Urinal Urinal Diaper Diaper Incontinent Incontinent # Voids 1 - Labs CBC & Chem 7: 08/05/20 05:58 08/05/20 05:58 Labs: Abnormal Lab Results - Last 24 Hours (Table) 08/05/20 08/05/20 Range/Units 05:58 05:58 MCV 102.3 H (80.0-97.0) fL MCH 33.8 H (27.0-32.0) pg Sodium 148 H (135-145) mmol/L Chloride 113 H (96-109) mmol/L BUN 39.0 H (9.0-27.0) mg/dL BUN/Creatinine Ratio 39.00 H (12.00-20.00) Ratio AST 124 H (14-35) U/L ALT 67 H (10-49) U/L Alkaline Phosphatase 141 H (41-126) U/L Total Protein 6.0 L (6.2-8.2) g/dL
[2020-08-06] MEDS ORDERED: CYANOCOBALAMIN 1,000 MCG/ML 1 ML VIAL IM ONE (13:30)
[2020-08-06] MEDS ORDERED: diphenhydrAMINE 50 MG/ML 1 ML VIAL IVP STA ×2 (13:48→14:32)
--- NOTE | 2020-08-06 14:02 | P.PN ---
Subjective Progress Note Date: 08/06/20 The patient was seen at bedside and per the person's nurse he was awake, alert and answering appropriately. After his Duopa Bolus was given via PEG tube (same as instruction) given at home he starting become restless and rigid of all extremities and his toes were curling. His Duopa was stopped and the nurse felt he slightly improved but not as to what it was like before. Per the nurse he had his Duopa dose via PEG tube yesterday. Patient had a temperature of 100 Fahrenheit overnight at around 1944 Objective - Vital Signs Vital signs: Vital Signs Temp 98.4 F 08/06/20 08:00 Pulse 89 08/06/20 08:00 Resp 22 08/06/20 08:00 BP 134/78 08/06/20 08:00 Pulse Ox 97 08/06/20 08:00 Intake & Output 08/05/20 08/06/20 08/06/20 18:59 06:59 18:59 Intake Total 1100 Balance 1100 Weight 73.936 kg 79.5 kg Intake: IV 1100 Sodium Chloride 0.9% 1, 1100 000 ml @ 100 mls/hr IV . Q10H [facility] Rx#:[id number] Other: Voiding Method Urinal Urinal Diaper Diaper Diaper Incontinent Incontinent Incontinent # Voids 1 - Exam GENERAL: The patient is lying in bed and and seems restless. ABDOMEN/GI: Has PEG tube. NEUROLOGICAL: Higher mental function: The patient is awake, alert. He verbalized but I did not understand what he said. He actually was following few simple commands such as showing me a thumbs up and closing and opening eyes. o Cranial nerves: He has detached right retina (blind). While left eye is about 4mm and reactive to light. He was tracking me throughout the room. He had mask-like face. No facial weakness noted. Has mild to moderate dysarthria is noted. Rest of cranial nerves could not be assessed because of cooperation. Motor: Gait is deferred. The strength is could not assess because of his condition. He had increase tone in bilateral wrist and ankle region. He had his upper and lower extremities extended. He had tremor of bilateral upper and lower extremities distally. He also has restless movement of ankles. Cerebellum: Could not assess. Sensation: Could not assess. Reflexes: 2+ throughout. Plantars are downgoing bilaterally. - Labs CBC & Chem 7: 08/05/20 05:58 08/05/20 05:58 Labs: Abnormal Lab Results - Last 24 Hours (Table) 08/05/20 Range/Units 05:58 Sodium 148 H (135-145) mmol/L Chloride 113 H (96-109) mmol/L BUN 39.0 H (9.0-27.0) mg/dL BUN/Creatinine Ratio 39.00 H (12.00-20.00) Ratio AST 124 H (14-35) U/L ALT 67 H (10-49) U/L Alkaline Phosphatase 141 H (41-126) U/L Total Protein 6.0 L (6.2-8.2) g/dL Assessment and Plan Assessment: Acute dystonia-medication induced (Duopa) Altered mental status due to metabolic encephalopathy (elevated LFT, mild hypernatremia (likely dehydration/lack of oral intake). Rule out underlying infection especially with low grade fever. Patient aggression behavioral seems to be due to medication effect (amantadine)---seems to improved Advanced Parkinson's disease s/p deep brain stimulation and on Duopa and amantadine Mild elevated liver function test (LFT: AST to ALT 124/67) Mild hypernatremia Hypothyroidism Plan: I gave patient a STAT order of benadryl 25mg IVP X2 (total of 50mg). I also gave him a dose of Beztropine 1mg once. There was improvement in symptoms but not back to baseline so ordered another 1mg Benztropine. Regarding his Duopa via PEG tube will hold for now then will start once the patient condition improves and will cut his normal dose to avoid any side- effects (likely to be restarted tomorrow). In the mean time will start the patient on Sinemet 25-100mg 1 tab QID via PEG tube. Starting tomorrow if patient is doing better will start the patinet on Amandine (but lower dose) with Duopa (which combination can help avoid dystonic/dyskinetic) Consulted physical therapy and occupation therapy. Vitamin B12: 392 (normal), therefore I gave Vitamin B12 1000mcg IM once and then 1000mg daily. Folate >24 (normal). On Seroquel 25mg qhs. Will discontinue it. Recommend Nuplazid (pimavanserin) as antipsychotic (but not available as formulary in the hospital) so can be prescribed as outpatient if patient continues to have psychotic behavior. Avoid any opiate/narcotic or sedative that would affect the patient's mentation. Will defer the rest of medical management to the primary team. Upon discharge the patient needs to follow-up with his Neurologist as outpatient (Dr. Enoch Stallworth) within 1-2 weeks. The plan is discussed with the patient's nurse. UPATE: I spoke with the patient's (Kimber) via phone. She stated the patient has history with Parkinson's disease for 17 years. He has Deep brain stimulator 2011. He had PEG tube 4-5 years for Duopa. Per the , his medications been modified numerous time in the last 5 years. It seem the Duopa has been titrated down in the last one year. It seems the patient His continous rate is 1.8 but unsure of bolus. The was notified that by tomorrow if he does better possible consider restarting Duopa but a lower dose with amantadine. Manish Tolentino MD Neuro-Hospitalist. Time with Patient: Greater than 30
[2020-08-06] MEDS ORDERED: BENZTROPINE 2 MG/2 ML AMP IV STA ×2 (14:47→17:22)
[2020-08-06] MEDS: CARBIDOPA-LEVODOPA 25-100 MG 1 EACH TAB PO SCH ×2 (17:31→21:22)
[2020-08-07] MEDS: HEPARIN SODIUM,PORCINE/PF 5,000 UNIT/0.5 ML SYRINGE SQ SCH ×3 (00:33→16:01)
[2020-08-07] MEDS: LEVOTHYROXINE 125 MCG TAB PO SCH (05:45)
[2020-08-07] MEDS ORDERED: ACETAMINOPHEN IV (For NPO) 1,000 MG in EMPTY BAG 1 BAG IVPB PRN (07:59)
[2020-08-07] MEDS: DEXTROSE 5%-0.45% NACL 1,000 ML IV SCH ×2 (08:17→10:55)
--- NOTE | 2020-08-07 08:17 | XR ---
EXAMINATION TYPE: XR chest 1V portable DATE OF EXAM: 08/07/2020 COMPARISON: 08/05/2019 HISTORY: Fever TECHNIQUE: Single frontal view of the chest is obtained. FINDINGS: Elevated right hemidiaphragm. Stimulator devices obscure portions of the chest. No pneumot horax. No pleural effusion. Subsegmental right perihilar changes are noted in stable. IMPRESSION: 1. Right perihilar linear changes which atelectasis favored over infiltrate.
[2020-08-07] MEDS: FAMOTIDINE 20 MG TAB PEG/G-TUBE SCH (08:32)
[2020-08-07] MEDS: PANTOPRAZOLE 40 MG/10 ML VIAL IVP SCH (08:32)
[2020-08-07] MEDS: CYANOCOBALAMIN 500 MCG TAB PO SCH (08:32)
[2020-08-07] MEDS: CARBIDOPA-LEVODOPA 25-100 MG 1 EACH TAB PO SCH ×4 (08:55→20:55)
[2020-08-07] MEDS ORDERED: LORazepam 2 MG/ML INJ IV STA (08:56)
[2020-08-07 09:41] LABS: Basophils # (A) 0.06 X 10*3/uL (0.00-0.10); Basophils % (A) 0.5 %; Eosinophils # (A) 0.06 X 10*3/uL (0.04-0.35); Eosinophils % (A) 0.5 %; HCT 43.5 % (39.6-50.0); HGB 13.9 g/dL (13.0-17.0); Lymphocytes # (A) 1.41 X 10*3/uL (0.90-5.00); Lymphocytes % (A) 12.4 %; MCH 33.1 pg (27.0-32.0); MCV 103.6 fL (80.0-97.0); Mean Platelet Volume 11.7 fL (9.5-12.2); Monocytes # (A) 0.93 X 10*3/uL (0.20-1.00); Monocytes % (A) 8.2 %; Neutrophils # (A) 8.86 X 10*3/uL (1.80-7.70); Platelet Count 215 X 10*3/uL (140-440); RDW 12.8 % (11.5-14.5); WBC 11.37 X 10*3/uL (4.50-10.00)
--- NOTE | 2020-08-07 09:43 | P.PN ---
Subjective Progress Note Date: 08/07/20 HISTORY OF PRESENT ILLNESS This is a 69-year-old male patient of mine with past medical history of Parkinson's disease status post intrathecal dopamine pump, hypothyroidism, vitamin D deficiency, detached right retina. His neurologist is Dr. Stallworth and he had recent family increased amantadine from 68.5 mg 237 mg one and half weeks ago and then increased to 174 mg on Saturday. Since the dose was increased, patient has had increasing weakness with falls, falling backward. Patient was brought into [facility] emergency center for evaluation. He was afebrile, heart rate 97, blood pressure 145/81, pulse ox 94% on room air. Last evening, patient received Zyprexa, Geodon and during evaluation today, aggressive behavior was improved. Patient has been seen by neurology with recommendations to continue carbidopa/levodopa via PEG tube, hold amantadine, consult PT and OT. Vitamin B12 and folate levels were ordered. Dr. Tolentino recommended Nuplazid (primavanserin) antipsychotic but not available in the hospital but can't be prescribed as an outpatient. Otherwise Seroquel 25 mg at bedtime and titrate up if needed. Recommendations also follow-up with his neurologist in 1-2 weeks after discharge. Laboratory studies: CBC was unremarkable. Electrolytes unremarkable. BUN 39 and creatinine 1.12. Blood sugar 114. SARS-CoV-2, RSV, and influenza not dete cted. CAT scan of the brain showed no acute intracranial hemorrhage, mass effect or midline shift. CAT scan of the cervical spine showed no acute fracture or dislocation. CAT scan mentions correlate for possible Covid pneumonia. Left hand x-ray shows no acute fracture or dislocation. Left tib-fib x-ray shows no acute fracture or dislocation. Chest x-ray reveals mild cardiomegaly and chronic changes without acute pulmonary process. 08/06: Patient sitting up in bed and is more awake and alert today he continues to be a bit confused, he did receive Geodon 20 mg IM yesterday, his was at bed side and she was questioning whether or not the patient to be transferred to [facility] where his neurologist is, however I told her we can start the Duo-Dopa here in the hospital during the day and she is in charge and that she would be taken off at night, and resume his feeding at nighttime, patient is able to use some water, patient already was seen in consultation by neurology we'll continue the current treatment plan, patient can be discharged home on Saturday with Nuplazid I will try to get some samples from the office. 08/07: Patient is sitting up in bed he continues to be restless he was seen earlier by neurology, he was started on Sinemet through the tube feeding he could not tolerate his Duodopa, this will continue to be off, he is off Gocovri , he had low-grade temperature, he appears to be tachypneic, his body is warm, he had occasional cough, appears to be a bit short of breath, a stat portable chest was done showed right perihilar atelectasis versus infiltrate he would be started on IV antibiotic in the form of Zosyn 3.375 g IV piggyback every 8 hours, continue IV fluid will increase the rate to 1 25 mL an hour, monitor the patient urine output, monitor the patient urine culture and blood culture as well. REVIEW OF SYSTEMS Constitutional: Positive for fever, positive for chills, no night sweats. No weight change. positive for weakness, fatigue or lethargy. No daytime sleepiness. HEENT: No headache. No blurred vision or double vision, no loss of vision. No loss of Hearing, no ringing in the ears, no dizziness. No nasal drainage or congestion. No epistaxis. No sore throat. Lungs: positive for shortness of breath, positive for occasional cough, no sputum production. No wheezing. Cardiovascular: No chest pain, no lower extremity edema. No palpitations. No paroxysmal nocturnal dyspnea. No orthopnea. No lightheadedness or dizziness. No syncopal episodes. Abdominal: No abdominal pain. No nausea, vomiting. No diarrhea. No constipation. No bloody or tarry stools. Genitourinary: No dysuria, increased frequency, urgency. No urinary retention. Musculoskeletal: No myalgias. Positive for muscle weakness, positive for gait dysfunction, continues with restlessness and spasticity of the neck and upper torso. Integumentary: No wounds, no lesions. No rash or pruritus. No unusual bruising. No change in hair or nails. Neurologic: Continues to have encephalopathy , pressured speech, restlessness, spasticity of the upper torso and the neck. Psychiatric: patient does appear to have some psychosis that appears to be better. Endocrine: No abnormal blood sugars. No weight change. No excessive sweating or thirst. No cold intolerance. PHYSICAL EXAMINATION Gen: This is a 69-year-old male patient resting in bed in mild respiratory distress. HEENT: Head is atraumatic, normocephalic. Pupils round. Sclerae is anicteric. 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 Oral mucous membranes are dry, there is dopamine reservoirs bilaterally. NECK: Supple. No JVD. No lymphadenopathy. No thyromegaly. LUNGS: there is decreased breath sounds at the bases, few rhonchi, minimal expiratory wheezes, no chest wall tenderness, no intercostal retractions, bila teral batteries in upper chest. HEART: First heart sound is depressed, second heart sound is normal, there is no gallop or murmur, no rubs or heaves. ABDOMEN: Soft. Bowel sounds are present. No masses. No tenderness. PEG tube site with no signs of drainage, erythema. EXTREMITIES: No pedal edema. No calf tenderness. dorsalis pedis +2 bilaterally, bilateral hammertoes. NEUROLOGICAL: Patient is awake, alert and oriented to person and able to follow simple commands no aphasia. Masklike face. 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 ASSESSMENT AND PLAN 1. Aggressive behavior with acute psychosis secondary to amantadine recently increased dosing. Amantadine on hold. Consult with neurology appreciated. patient has been maintained on Seroquel 25 mg at bedtime, continue patient on Sinemet as ordered by neurology, follow-up and the patient very closely. 2. Parkinson's disease on dopamine pump. Patient's to bring in pump device from home. Hold amantadine. Continue carbidopa levodopa as ordered by neurology. 3. Moderate protein calorie malnutrition and risk for aspiration, chronic PEG tube.continue to feeding at night. 4. Hypothyroidism. Continue levothyroxine 125 g daily. 5. Vitamin D deficiency, stable. 6. Macrocytosis. Vitamin B12 and folate levels ordered. 7. GI prophylaxis. Pepcid 20 mg daily per PEG tube. 8. DVT prophylaxis. continue heparin 5000 units subcutaneously every 12 hours. 9. COVID-19 testing negative. Patient has been hospitalized during a pandemic. 10. Right perihilar infiltrate cirrhosis of atelectasis versus aspiration pneumonia start the patient on Zosyn 3.375 g IV piggyback every 8 hours, continue to monitor the patient very closely, nebulized treatment in the form of DuoNeb 3 mg nebulization 4 times every day, oxygen support as needed. DISCHARGE PLAN To be determined. Most likely return home. PT and OT consults. Objective - Vital Signs Vital signs: Vital Signs Temp 100.2 F H 08/07/20 06:44 Pulse 62 08/07/20 06:44 Resp 22 08/07/20 09:21 BP 143/59 08/07/20 06:44 Pulse Ox 96 08/07/20 06:44 Intake & Output 08/06/20 08/07/20 08/07/20 18:59 06:59 18:59 Output Total 600 800 Balance -600 -800 Weight 80 kg Output: Urine 600 800 Straight 600 800 Other: Voiding Method Diaper Diaper Incontinent Incontinent # Voids 4 - Labs CBC & Chem 7: 08/07/20 05:16 08/05/20 05:58
[2020-08-07 09:47] LABS: African American GFR (CKD) 78.4 (60.0-200.0); Albumin 3.8 g/dL (3.80-4.90); Albumin/Globulin Ratio 1.65 (1.60-3.17); BUN/Creat Ratio 46.36 Ratio (12.00-20.00); Calcium 8.5 mg/dL (8.7-10.3); Globulin 2.3 g/dL (1.6-3.3); Non-African American GFR(CKD) 67.7 (60.0-200.0); Potassium 4.1 mmol/L (3.5-5.5); Total Bilirubin 0.4 mg/dL (0.3-1.2); Total Protein 6.1 g/dL (6.2-8.2)
[2020-08-07 09:51] LABS: Amorphous Sediment,Urine Occasional /hpf; Appearance,Urine Clear (Clear); Bacteria,Urine Rare /hpf; Bilirubin,Urine Negative (Negative); Blood,Urine Trace (Negative); Color,Urine Yellow; Glucose,Urine (UA) Negative (Negative); Ketones,Urine Negative (Negative); Leukocyte Esterase,Urine Negative (Negative); Mucus,Urine Occasional /hpf; Nitrite,Urine Negative (Negative); Protein,Urine Trace (Negative); RBC,Urine 7 /hpf (0-5); Specific Gravity,Urine 1.019 (1.001-1.035); Squamous Epithelial Cell,Urine <1 /hpf (0-4); Urobilinogen,Urine <2.0 mg/dL (<2.0); WBC,Urine 5 /hpf (0-5)
[2020-08-07] MEDS: IPRATROPIUM-ALBUTEROL 3 ML NEB INHALATION SCH ×3 (12:22→20:21)
--- NOTE | 2020-08-07 15:46 | P.PN ---
Subjective Progress Note Date: 08/07/20 The patient was seen at bedside and per the patient nurse he seems to be doing better today compared to yesterday but was slightly agitated in the morning and resolved. was at bedside and she felt the patient was doing better today compared to yesterday. Patient had a T-max of 100.2 today early in the morning around 6:44. And around that time he had respiratory of 40 and his pulse ox was 96 at that time then that went down to 89. Patient had a chest x-ray shows right perihilar linear changes with atelectasis favored over infiltrates It seems that the patient's gave the patient water via by mouth and per the patient's nurse and she stated that the she was told the patient cannot swallow but the patient does get the intake to the mouth sometimes by the either liquid or his the medication. Objective - Vital Signs Vital signs: Vital Signs Temp 98.1 F 08/07/20 13:07 Pulse 80 08/07/20 13:07 Resp 20 08/07/20 13:07 BP 96/50 08/07/20 13:07 Pulse Ox 89 L 08/07/20 13:07 Intake & Output 08/06/20 08/07/20 08/07/20 18:59 06:59 18:59 Output Total 600 800 Balance -600 -800 Weight 80 kg Output: Urine 600 800 Straight 600 800 Other: Voiding Method Diaper Diaper Diaper Incontinent Incontinent Incontinent # Voids 4 - Exam GENERAL: The patient is lying in bed and and mild acute distress but drastically improved compared to yesterday. ABDOMEN/GI: Has PEG tube. NEUROLOGICAL: Higher mental function: The patient is awake, alert and was able to state his name. He follows few simple commands such as thumbs up and closing eyes. No neglect from limited exam. Cranial nerves: He has detached right retina (blind). While left eye is about 4mm and reactive to light. He was tracking me throughout the room. He had mask-like face. No facial weakness noted. Has mild to moderate dysarthria is noted. Rest of cranial nerves could not be assessed because of cooperation. Motor: Gait is deferred. The strength is able to lift upper extremities above gravity and bend his knees. No further flexed posture of extremities and no dyskinesia. Cerebellum: Could not assess. Sensation: Could not assess. Reflexes: 2+ throughout. Plantars are downgoing bilaterally. - Labs CBC & Chem 7: 08/07/20 05:16 08/07/20 05:16 Labs: Abnormal Lab Results - Last 24 Hours (Table) 08/07/20 08/07/20 08/07/20 Range/Units 05:16 05:16 09:00 WBC 11.37 H (4.50-10.00) X 10*3/uL RBC 4.20 L (4.40-5.60) X 10*6/uL MCV 103.6 H (80.0-97.0) fL MCH 33.1 H (27.0-32.0) pg Immature Gran # 0.05 H (0.00-0.04) X 10*3/uL Neutrophils # 8.86 H (1.80-7.70) X 10*3/uL Sodium 154 H (135-145) mmol/L Chloride 121 H (96-109) mmol/L BUN 51.0 H (9.0-27.0) mg/dL BUN/Creatinine Ratio 46.36 H (12.00-20.00) Ratio Glucose 148 H (70-110) mg/dL Calcium 8.5 L (8.7-10.3) mg/dL AST 141 H (14-35) U/L ALT 91 H (10-49) U/L Alkaline Phosphatase 139 H (41-126) U/L Total Protein 6.1 L (6.2-8.2) g/dL Urine Protein Trace H (Negative) Urine Blood Trace H (Negative) Urine RBC 7 H (0-5) /hpf Amorphous Sediment Occasional H (None) /hpf Urine Bacteria Rare H (None) /hpf Urine Mucus Occasional H (None) /hpf Assessment and Plan Assessment: Acute dystonia-medication induced (Duopa)--improved Altered mental status due to metabolic encephalopathy (elevated LFT, mild hypernatremia (likely dehydration/lack of oral intake). Rule out underlying infection especially with low grade fever. Patient aggression behavioral seems to be due to medication effect (increased a mantadine improved)---seems to improved (per patient has been having difficulty with Duopa for the past 5 years getting the right dose) Low grade fever due to Atelectasis vs aspiration pneumonia Advanced Parkinson's disease (for the past 17 years) s/p deep brain stimulation and on Duopa and amantadine Mild elevated liver function test (LFT: AST to ALT 124/67) Mild hypernatremia Hypothyroidism PEG tube in the last 4-5 years Plan: I gave patient a STAT order of benadryl 25mg IVP X2 (total of 50mg). I also gave him a dose of Beztropine 1mg once. There was improvement in symptoms but not back to baseline so ordered another 1mg Benztropine. Regarding his Duopa via PEG tube will hold for now then will start once the patient condition improves and will cut his normal dose to avoid any side- effects (likely to be restarted tomorrow). In the mean time will start the patient on Sinemet 25-100mg 1 tab QID via PEG tube. Starting tomorrow if patient is doing better will start the patinet on Amandine (but lower dose) with Duopa (which combination can help avoid d ystonic/dyskinetic) Vitamin B12: 392 (normal), therefore I gave Vitamin B12 1000mcg IM once and then 1000mg daily. Folate >24 (normal). Continue Sinement 25-100mg 1 tab QID via PEG tube. Will consider restarting the patinet Duopa with amantadine possibly tomorrow if he remains stable (start at lower dose than home dose since had reaction to home dose). I ordered Ativan 0.5mg for agitation and if needs can have one additional dose. Consulted physical therapy and occupation therapy. Recommend Nuplazid (pimavanserin) as antipsychotic (but not available as formulary in the hospital) so can be prescribed as outpatient if patient continues to have psychotic behavior. Avoid any opiate/narcotic or sedative that would affect the patient's mentation. Will defer the rest of medical management to the primary team. Upon discharge the patient needs to follow-up with his Neurologist as outpatient (Dr. Enoch Stallworth) within 1-2 weeks. The plan is discussed with the patient's and his nurse. Dr. Milian will take over neurology coverage starting tomorrow (08/08/00) AM. Manish Tolentino MD Neuro-Hospitalist. Time with Patient: Less than 30
[2020-08-07] MEDS: PIPERACILLIN-TAZOBACTAM 3.375 GM in SODIUM CHLORIDE 0.9% 100 ML IVPB SCH (16:01)
[2020-08-07] MEDS: DEXTROSE 5% IN WATER 1,000 ML IV SCH (20:56)
[2020-08-08] MEDS: PIPERACILLIN-TAZOBACTAM 3.375 GM in SODIUM CHLORIDE 0.9% 100 ML IVPB SCH ×3 (02:02→15:04)
[2020-08-08] MEDS: HEPARIN SODIUM,PORCINE/PF 5,000 UNIT/0.5 ML SYRINGE SQ SCH ×3 (02:04→15:04)
[2020-08-08] MEDS: DEXTROSE 5% IN WATER 1,000 ML IV SCH ×3 (07:00→17:03)
[2020-08-08] MEDS: LEVOTHYROXINE 125 MCG TAB PO SCH (07:01)
[2020-08-08] MEDS: CYANOCOBALAMIN 500 MCG TAB PO SCH (07:18)
[2020-08-08] MEDS: PANTOPRAZOLE 40 MG/10 ML VIAL IVP SCH (07:18)
[2020-08-08] MEDS: CARBIDOPA-LEVODOPA 25-100 MG 1 EACH TAB PO SCH ×4 (07:19→21:50)
[2020-08-08] MEDS: FAMOTIDINE 20 MG TAB PEG/G-TUBE SCH (07:19)
[2020-08-08] MEDS: IPRATROPIUM-ALBUTEROL 3 ML NEB INHALATION SCH ×4 (07:46→19:47)
--- NOTE | 2020-08-08 08:10 | P.PN ---
Subjective Progress Note Date: 08/08/20 HISTORY OF PRESENT ILLNESS This is a 69-year-old male patient of mine with past medical history of Parkinson's disease status post intrathecal dopamine pump, hypothyroidism, vitamin D deficiency, detached right retina. His neurologist is Dr. Stallworth and he had recent family increased amantadine from 68.5 mg 237 mg one and half weeks ago and then increased to 174 mg on Saturday. Since the dose was increased, patient has had increasing weakness with falls, falling backward. Patient was brought into [facility] emergency center for evaluation. He was afebrile, heart rate 97, blood pressure 145/81, pulse ox 94% on room air. Last evening, patient received Zyprexa, Geodon and during evaluation today, aggressive behavior was improved. Patient has been seen by neurology with recommendations to continue carbidopa/levodopa via PEG tube, hold amantadine, consult PT and OT. Vitamin B12 and folate levels were ordered. Dr. Tolentino recommended Nuplazid (primavanserin) antipsychotic but not available in the hospital but can't be prescribed as an outpatient. Otherwise Seroquel 25 mg at bedtime and titrate up if needed. Recommendations also follow-up with his neurologist in 1-2 weeks after discharge. Laboratory studies: CBC was unremarkable. Electrolytes unremarkable. BUN 39 and creatinine 1.12. Blood sugar 114. SARS-CoV-2, RSV, and influenza not dete cted. CAT scan of the brain showed no acute intracranial hemorrhage, mass effect or midline shift. CAT scan of the cervical spine showed no acute fracture or dislocation. CAT scan mentions correlate for possible Covid pneumonia. Left hand x-ray shows no acute fracture or dislocation. Left tib-fib x-ray shows no acute fracture or dislocation. Chest x-ray reveals mild cardiomegaly and chronic changes without acute pulmonary process. 08/06: Patient sitting up in bed and is more awake and alert today he continues to be a bit confused, he did receive Geodon 20 mg IM yesterday, his was at bed side and she was questioning whether or not the patient to be transferred to [facility] where his neurologist is, however I told her we can start the Duo-Dopa here in the hospital during the day and she is in charge and that she would be taken off at night, and resume his feeding at nighttime, patient is able to use some water, patient already was seen in consultation by neurology we'll continue the current treatment plan, patient can be discharged home on Saturday with Nuplazid I will try to get some samples from the office. 08/07: Patient is sitting up in bed he continues to be restless he was seen earlier by neurology, he was started on Sinemet through the tube feeding he could not tolerate his Duodopa, this will continue to be off, he is off Gocovri , he had low-grade temperature, he appears to be tachypneic, his body is warm, he had occasional cough, appears to be a bit short of breath, a stat portable chest was done showed right perihilar atelectasis versus infiltrate he would be started on IV antibiotic in the form of Zosyn 3.375 g IV piggyback every 8 hours, continue IV fluid will increase the rate to 1 25 mL an hour, monitor the patient urine output, monitor the patient urine culture and blood culture as well. 08/08: The patient had Clayton catheter placed last evening for urinary retention. Sodium last evening at 10 PM was 149. Patient is awake and able to answer que stions but is very restless, sitter is at bedside. Patient is complaining of a sore throat but no complaints of significant pain. He does have phlegm in the back of his throat. He denies having a cough. Pulmonary medicine will be added. Temperature max was 99.4 axillary, heart rate 74, respiratory rate 26, blood pressure 105/54, pulse ox 95% on 2 L nasal cannula. Yesterday afternoon pulse ox was 89% on room air and he is currently 96% on 2 L nasal cannula. Repeat blood work is pending at the time of this dictation 8 AM. REVIEW OF SYSTEMS Constitutional: Positive for fever, positive for chills, no night sweats. No weight change. positive for weakness, fatigue or lethargy. No daytime sleepiness. HEENT: No headache. No blurred vision or double vision, no loss of vision. No loss of Hearing, no ringing in the ears, no dizziness. No nasal drainage or c ongestion. No epistaxis. No sore throat. Lungs: positive for shortness of breath, positive for occasional cough, no sputum production. No wheezing. Cardiovascular: No chest pain, no lower extremity edema. No palpitations. No paroxysmal nocturnal dyspnea. No orthopnea. No lightheadedness or dizziness. No syncopal episodes. Abdominal: No abdominal pain. No nausea, vomiting. No diarrhea. No constipation. No bloody or tarry stools. Genitourinary: No dysuria, increased frequency, urgency. Reported urinary retention. Musculoskeletal: No myalgias. Positive for muscle weakness, positive for gait dysfunction, continues with restlessness and spasticity of the neck and upper torso. Integumentary: No wounds, no lesions. No rash or pruritus. No unusual bruising. No change in hair or nails. Neurologic: Continues to have encephalopathy , pressured speech, restlessness, spasticity of the upper torso and the neck. Psychiatric: patient does appear to have some psychosis that appears to be better. Endocrine: No abnormal blood sugars. No weight change. No excessive sweating or thirst. No cold intolerance. PHYSICAL EXAMINATION Gen: This is a 69-year-old male patient resting in bed in no respiratory distress. HEENT: Head is atraumatic, normocephalic. Pupils round. Sclerae is anicteric. 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 Oral mucous membranes are dry, there is dopamine reservoirs bilaterally. NECK: Supple. No JVD. No lymphadenopathy. No thyromegaly. LUNGS: there is decreased breath sounds at the bases, few rhonchi, minimal expiratory wheezes, no chest wall tenderness, no intercostal retractions, bilateral batteries in upper chest. HEART: First heart sound is depressed, second heart sound is normal, there is no gallop or murmur, no rubs or heaves. ABDOMEN: Soft. Bowel sounds are present. No masses. No tenderness. PEG tube site with no signs of drainage, erythema. Clayton catheter draining clear radha urine. EXTREMITIES: No pedal edema. No calf tenderness. dorsalis pedis +2 bilaterally, bilateral hammertoes. NEUROLOGICAL: Patient is awake, alert and oriented to person and able to follow simple commands no aphasia. Masklike face. Bilateral hand assembler cards and announcements strong and equal, significant spasticity in the neck and upper torso, with restlessness and tremors . ASSESSMENT AND PLAN 1. Aggressive behavior with acute psychosis secondary to amantadine recently increased dosing. Amantadine on hold. Consult with neurology appreciated. patient has been maintained on Seroquel 25 mg at bedtime, continue patient on Sinemet as ordered by neurology, follow-up and the patient very closely. 2. Parkinson's disease on dopamine pump. Patient's to bring in pump devic e from home. Hold amantadine. Continue carbidopa levodopa per PEG as ordered by neurology. 3. Moderate protein calorie malnutrition and risk for aspiration, chronic PEG tube.continue to feeding at night. 4. Hypothyroidism. Continue levothyroxine 125 g daily. 5. Vitamin D deficiency, stable. 6. Macrocytosis. Vitamin B12 392 and folate greater than 24. 7. GI prophylaxis. Pepcid 20 mg daily per PEG tube. 8. DVT prophylaxis. continue heparin 5000 units subcutaneously every 12 hours. 9. COVID-19 testing negative. Patient has been hospitalized during a pandemic. 10. Right perihilar infiltrate cirrhosis of atelectasis versus aspiration pneumonia start the patient on Zosyn 3.375 g IV piggyback every 8 hours, continue to monitor the patient very closely, nebulized treatment in the form of DuoNeb 3 mg nebulization 4 times every day, oxygen support as needed. Consult a dded for pulmonary medicine. 11. Hypernatremia. Patient was started on IV fluids D5 at 125 mL per hour yesterday. Sodium last evening was improved. Repeat blood work this morning remains pending. DISCHARGE PLAN To be determined. Most likely return home. PT and OT consults. Impression and plan of care have been directed as dictated by the signing physician. Sofía Kulkarni nurse practitioner acting as scribe for signing physician. Objective - Vital Signs Vital signs: Vital Signs Temp 97.5 F L 08/08/20 02:54 Pulse 74 08/08/20 02:54 Resp 26 H 08/08/20 02:54 BP 105/54 08/08/20 02:54 Pulse Ox 95 08/08/20 02:54 Intake & Output 08/07/20 08/08/20 08/08/20 18:59 06:59 18:59 Output Total 2400 Balance -2400 Output: Urine 2400 Straight 1300 Other: Voiding Method Diaper Indwelling Catheter Incontinent - Labs CBC & Chem 7: 08/07/20 05:16 08/07/20 22:25 Labs: Abnormal Lab Results - Last 24 Hours (Table) 08/07/20 08/07/20 08/07/20 Range/Units 05:16 05:16 09:00 WBC 11.37 H (4.50-10.00) X 10*3/uL RBC 4.20 L (4.40-5.60) X 10*6/uL MCV 103.6 H (80.0-97.0) fL MCH 33.1 H (27.0-32.0) pg Immature Gran # 0.05 H (0.00-0.04) X 10*3/uL Neutrophils # 8.86 H (1.80-7.70) X 10*3/uL Sodium 154 H (135-145) mmol/L Chloride 121 H (96-109) mmol/L BUN 51.0 H (9.0-27.0) mg/dL BUN/Creatinine Ratio 46.36 H (12.00-20.00) Ratio Glucose 148 H (70-110) mg/dL Calcium 8.5 L (8.7-10.3) mg/dL AST 141 H (14-35) U/L ALT 91 H (10-49) U/L Alkaline Phosphatase 139 H (41-126) U/L Total Protein 6.1 L (6.2-8.2) g/dL Urine Protein Trace H (Negative) Urine Blood Trace H (Negative) Urine RBC 7 H (0-5) /hpf Amorphous Sediment Occasional H (None) /hpf Urine Bacteria Rare H (None) /hpf Urine Mucus Occasional H (None) /hpf 08/07/20 Range/Units 22:25 WBC (4.50-10.00) X 10*3/uL RBC (4.40-5.60) X 10*6/uL MCV (80.0-97.0) fL MCH (27.0-32.0) pg Immature Gran # (0.00-0.04) X 10*3/uL Neutrophils # (1.80-7.70) X 10*3/uL Sodium 149 H (135-145) mmol/L Chloride (96-109) mmol/L BUN (9.0-27.0) mg/dL BUN/Creatinine Ratio (12.00-20.00) Ratio Glucose (70-110) mg/dL Calcium (8.7-10.3) mg/dL AST (14-35) U/L ALT (10-49) U/L Alkaline Phosphatase (41-126) U/L Total Protein (6.2-8.2) g/dL Urine Protein (Negative) Urine Blood (Negative) Urine RBC (0-5) /hpf Amorphous Sediment (None) /hpf Urine Bacteria (None) /hpf Urine Mucus (None) /hpf
[2020-08-08 09:09] LABS: HCT 41.7 % (39.6-50.0); HGB 13.4 g/dL (13.0-17.0); MCHC 32.1 g/dL (32.0-37.0); MCV 105.8 fL (80.0-97.0); Platelet Count 188 X 10*3/uL (140-440); RBC 3.94 X 10*6/uL (4.40-5.60); RDW 12.8 % (11.5-14.5); WBC 11.12 X 10*3/uL (4.50-10.00)
[2020-08-08 10:45] LABS: Basophils # (A) 0.05 X 10*3/uL (0.00-0.10); Basophils % (A) 0.4 %; Eosinophils # (A) 0.13 X 10*3/uL (0.04-0.35); Eosinophils % (A) 1.2 %; Lymphocytes # (A) 1.18 X 10*3/uL (0.90-5.00); Lymphocytes % (A) 10.6 %; Monocytes # (A) 0.78 X 10*3/uL (0.20-1.00); Neutrophils # (A) 8.95 X 10*3/uL (1.80-7.70); Neutrophils % (A) 80.5 %
[2020-08-08 10:46] LABS: Macrocytosis (M) 2+
[2020-08-08 10:55] LABS: Basophils % (A) 0 %; Eosinophils # (A) 0.2 k/uL (0-0.7); Eosinophils % (A) 2 %; HCT 41.3 % (39.0-53.0); HGB 13.9 gm/dL (13.0-17.5); Lymphocytes # (A) 1.1 k/uL (1.0-4.8); Lymphocytes % (A) 10 %; MCH 34.5 pg (25.0-35.0); MCHC 33.8 g/dL (31.0-37.0); MCV 102.1 fL (80.0-100.0); Mean Platelet Volume 8.8; Monocytes # (A) 0.5 k/uL (0-1.0); Monocytes % (A) 4 %; Neutrophils # (A) 9.3 k/uL (1.3-7.7); Neutrophils % (A) 83 %; Platelet Count 171 k/uL (150-450); RBC 4.04 m/uL (4.30-5.90); RDW 12.1 % (11.5-15.5); WBC 11.2 k/uL (3.8-10.6)
[2020-08-08 11:04] LABS: African American GFR (CKD) 87 (>60 ml/min/1.73 sqM); Anion Gap 2 mmol/L; Blood Urea Nitrogen 47 mg/dL (9-20); Calcium 8.1 mg/dL (8.4-10.2); Carbon Dioxide 33 mmol/L (22-30); Chloride 113 mmol/L (98-107); Glucose 136 mg/dL (74-99); Non-African American GFR(CKD) 75 (>60 ml/min/1.73 sqM); Potassium 3.7 mmol/L (3.5-5.1); Sodium 148 mmol/L (137-145)
[2020-08-08 11:36] LABS: Albumin 3.3 g/dL (3.80-4.90); Albumin/Globulin Ratio 1.83 (1.60-3.17); Anion Gap 6.6 mmol/L (4.00-12.00); Calcium 7.8 mg/dL (8.7-10.3); Carbon Dioxide 26.4 mmol/L (21.6-31.8); Globulin 1.8 g/dL (1.6-3.3); Non-African American GFR(CKD) 75.9 (60.0-200.0); Potassium 4.1 mmol/L (3.5-5.5); Total Bilirubin 0.3 mg/dL (0.2-1.2); Total Protein 5.1 g/dL (6.2-8.2)
--- NOTE | 2020-08-08 14:05 | P.CNPUL ---
History of Present Illness Consult date: 08/08/20 Reason for consult: dyspnea, pneumonia History of present illness: 69-year-old male patient with advanced Parkinson's disease who has intrathecal dopamine pump in addition to an alternative stimulators was hospitalized on 08/05/2020 because of generalized weakness, falls and complications related to his Parkinson's disease. Apparently the patient received his COVID-19 vaccination and since then his been having some issues with complications related to Parkinson's disease. He has been seen by neurology during his hospital stay. CAT scan of the brain showed no acute abnormalities. CAT scan of the cervical spine showed no acute fractures. Chest x-ray showed some mild cardiomegaly. Chest x-ray showed some questionable perihilar infiltrate on the right. Aspiration was suspected. The patient was started on IV Zosyn. The patient has a PEG tube feeding for nutritional support. Mucous membranes are dry. He has a weak cough. No signs of any respiratory distress. Time of evaluation, the patient's breathing was nonlabored. The patient was having some altered mentation aggressive behavior. He was seen by neurology and the rec ommendation was to continue the levo dopa carbidopa combination and amantadine was held. He was also started on Seroquel 25 mg as a starting dose and the dose was being titrated accordingly. No previous history of DVT. No proptosis of pulmonary embolism. No episodes of recurrent aspiration pneumonia. Review of Systems Constitutional: No fever, no chills, no night sweats. No weight change. No weakness, fatigue or lethargy. No daytime sleepiness. EENT: No headache. No blurred vision or double vision, no loss of vision. No loss of Hearing, no ringing in the ears, no dizziness. No nasal drainage or congestion. No epistaxis. No sore throat. Lungs: No shortness of breath, cough, no sputum production. No wheezing. Cardiovascular: No chest pain, no lower extremity edema. No palpitations. No paroxysmal nocturnal dyspnea. No orthopnea. No lightheadedness or dizziness. No syncopal episodes. Abdominal: No abdominal pain. No nausea, vomiting. No diarrhea. No constipation. No bloody or tarry stools.. No loss of appetite. Genitourinary: No dysuria, increased frequency, urgency. No urinary retention. Musculoskeletal: No myalgias. No muscle weakness, no gait dysfunction, no frequent falls. No back pain. No neck pain. Integumentary: No wounds, no lesions. No rash or pruritus. No unusual bruising. No change in hair or nails. Neurologic: No aphasia. No facial droop. No change in mentation. No head injury. No headache. No paralysis. No paresthesia. Psychiatric: No depression. No anxiety. No mood swings. Endocrine: No abnormal blood sugars. No weight change. No excessive sweating or thirst. No cold intolerance. Past Medical History Additional Past Medical History / Comment(s): Parkinsons disease, detached retina History of Any Multi-Drug Resistant Organisms: None Reported Additional Past Surgical History / Comment(s): Feeding tube placed, Past Psychological History: No Psychological Hx Reported Past Alcohol Use History: None Reported Past Drug Use History: None Reported Medications and Allergies Home Medications Medication Instructions Recorded Confirmed Type ALPRAZolam [Xanax] 0.5 mg PO 5XD PRN 01/15/18 08/04/20 History Carbidopa/Levodopa [Duopa 4.63 1 dose INTRATHECA CONTINUOUS 01/15/18 08/04/20 History mg-20 mg/ml Susp] Zolpidem [Ambien] 10 mg PO HS 01/15/18 08/04/20 History Amantadine HCl [Gocovri] 68.5 mg PO BID 08/04/20 08/04/20 History Levothyroxine Sodium [Synthroid] 125 mcg PO DAILY 08/04/20 08/04/20 History Allergies Allergy/AdvReac Type Severity Reaction Status Date / Time Sulfa (Sulfonamide Allergy Unknown Verified 08/04/20 13:10 Antibiotics) Physical Exam Vitals: Vital Signs Temp Pulse Resp BP Pulse Ox 08/08/20 07:20 99.5 F 60 18 120/58 96 08/08/20 02:54 97.5 F L 74 26 H 105/54 95 08/07/20 19:30 99.4 F 75 30 H 109/46 93 L Intake and Output 08/07/20 08/08/20 08/08/20 22:59 06:59 14:59 Output Total 1600 Balance -1600 Output: Urine 1600 Straight 500 Other: Voiding Method Indwelling Catheter Indwelling Catheter Gen: This is a 69-year-old male patient resting in bed. He appears to be in no acute distress. Currently the patient on 2 L about 2 by nasal cannula. Breathing is nonlabored. Awake and alert. Head exam was generally normal. There was no scleral icterus or corneal arcus. Mucous membranes were moist. HEENT: Head is atraumatic, normocephalic. Pupils round. Sclerae is anicteric. 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 Oral mucous membranes are dry. The patient is breathing through his mouth and he occasionally snores whenever he goes to sleep. NECK: Supple. No JVD. No lymphadenopathy. No thyromegaly. LUNGS: Clear to auscultation. No wheezes or rhonchi. No intercostal retractio ns. The patient has a weak cough. Diminished breath sound bilaterally especially in lung bases. There stimulators can be identified over the anterior chest bilaterally. HEART: Regular rate and rhythm. 2/6 systolic ejection murmur. ABDOMEN: Soft. Bowel sounds are present. No masses. No tenderness. PEG tube site with no signs of drainage, erythema. EXTREMITIES: No pedal edema. No calf tenderness. NEUROLOGICAL: Patient is awake, alert and oriented to person and able to follow simple commands no aphasia. Masklike face. Bilateral hand energy and sustainability manager strong and equal. Results - Laboratory Findings CBC and BMP: 08/08/20 10:39 08/08/20 10:39 PT/INR, D-dimer PT 11.2 sec (9.0-12.0) 08/04/20 12:51 INR 1.1 (<1.2) 08/04/20 12:51 Abnormal lab findings: Abnormal Labs 08/04/20 08/04/20 08/04/20 12:51 12:51 12:51 WBC RBC MCV 101.8 H MCH Immature Gran # Neutrophils # 8.1 H Sodium Chloride 110 H Carbon Dioxide BUN 39 H BUN/Creatinine Ratio Glucose 114 H POC Glucose (mg/dL) Calcium AST ALT Alkaline Phosphatase 142 H Creatine Kinase 309 H Total Protein Albumin Procalcitonin TSH <0.015 L Urine Protein 1+ H Urine Ketones 1+ H Urine Blood Urine RBC Amorphous Sediment Urine Bacteria Urine Mucus Occasional H 08/04/20 08/05/20 08/05/20 13:02 05:58 05:58 WBC RBC MCV 102.3 H MCH 33.8 H Immature Gran # Neutrophils # Sodium 148 H Chloride 113 H Carbon Dioxide BUN 39.0 H BUN/Creatinine Ratio 39.00 H Glucose POC Glucose (mg/dL) 109 H Calcium AST 124 H ALT 67 H Alkaline Phosphatase 141 H Creatine Kinase Total Protein 6.0 L Albumin Procalcitonin TSH Urine Protein Urine Ketones Urine Blood Urine RBC Amorphous Sediment Urine Bacteria Urine Mucus 08/07/20 08/07/20 08/07/20 05:16 05:16 09:00 WBC 11.37 H RBC 4.20 L MCV 103.6 H MCH 33.1 H Immature Gran # 0.05 H Neutrophils # 8.86 H Sodium 154 H Chloride 121 H Carbon Dioxide BUN 51.0 H BUN/Creatinine Ratio 46.36 H Glucose 148 H POC Glucose (mg/dL) Calcium 8.5 L AST 141 H ALT 91 H Alkaline Phosphatase 139 H Creatine Kinase Total Protein 6.1 L Albumin Procalcitonin TSH Urine Protein Trace H Urine Ketones Urine Blood Trace H Urine RBC 7 H Amorphous Sediment Occasional H Urine Bacteria Rare H Urine Mucus Occasional H 08/07/20 08/08/20 08/08/20 22:25 06:03 06:03 WBC 11.12 H RBC 3.94 L MCV 105.8 H MCH 34.0 H Immature Gran # Neutrophils # 8.95 H Sodium 149 H Chloride Carbon Dioxide BUN BUN/Creatinine Ratio Glucose POC Glucose (mg/dL) Calcium AST ALT Alkaline Phosphatase Creatine Kinase Total Protein Albumin Procalcitonin 0.20 H TSH Urine Protein Urine Ketones Urine Blood Urine RBC Amorphous Sediment Urine Bacteria Urine Mucus 08/08/20 08/08/20 08/08/20 06:03 10:39 10:39 WBC 11.2 H RBC 4.04 L MCV 102.1 H MCH Immature Gran # Neutrophils # 9.3 H Sodium 151 H 148 H Chloride 118 H 113 H Carbon Dioxide 33 H BUN 51.0 H 47 H BUN/Creatinine Ratio 51.00 H Glucose 129 H 136 H POC Glucose (mg/dL) Calcium 7.8 L 8.1 L AST 83 H ALT 83 H Alkaline Phosphatase 130 H Creatine Kinase Total Protein 5.1 L Albumin 3.30 L Procalcitonin TSH Urine Protein Urine Ketones Urine Blood Urine RBC Amorphous Sediment Urine Bacteria Urine Mucus - Diagnostic Findings Chest x-ray: image reviewed Assessment and Plan Plan: 1 Parkinson's disease with significant neurologic impairment and cognitive impairment and tremors a movement disorder. The patient has an intrathecal do pamine pump and the patient also has bilateral nerve stimulators. 2 possible aspiration with some limited right perihilar infiltrate currently on 2 L about 2 by nasal cannula. The patient is receiving enteral feeding for nutritional support, Of significance also has a weak cough 3 altered mentation along with some aggressive behavior and psychosis at time of admission, appropriate drug adjustments were done and the patient was taken off the amantadine and the patient was started on Seroquel 4 enteral feeding for nutritional support 5 hypothyroidism 6 hyperchloremic hypernatremia, improving and the sodium level is down to 48 Plan Check pro calcitonin level Continue IV Zosyn Aspiration precautions Deep breathing and use of incentive spirometer if possible Continue IV fluids Monitor electrolytes Continue Sinemet Heparin subcu for DVT prophylaxis Enteral feeding for nutritional support We'll follow
--- NOTE | 2020-08-08 21:37 | P.PN ---
Subjective Progress Note Date: 08/08/20 Patient was seen for a follow-up. Patient initially seen by Dr. Manish Tolentino. Please refer to his note for details. Patient has history of Parkinson's disease for last 17 years, also had undergone placement of bilateral DBS, and PEG placement also on Duopa intrathecal pump. Patient has presented with dystonia and dyskinesia. Patient was amantadine, which was discontinued as it was producing progressive dystonic behavior. Patient was given Benadryl and Cogentin. Objective - Vital Signs Vital signs: Vital Signs Temp 98.4 F 08/08/20 14:18 Pulse 77 08/08/20 19:58 Resp 18 08/08/20 14:18 BP 111/84 08/08/20 14:18 Pulse Ox 95 08/08/20 14:18 Intake & Output 08/08/20 08/08/20 08/09/20 06:59 18:59 06:59 Output Total 450 Balance -450 Weight 80 kg Output: Urine 450 Straight 450 Other: Voiding Method Indwelling Catheter Indwelling Catheter - Exam On examination patient is an elderly male, laying comfortably in the bed. At the time I saw the patient, there were no dystonic movements noted. Tone was equal bilaterally the arms and legs. It was essentially normal. No bradykinesia, no tremors, dyskinesia. Muscle strength appears normal. Patient knows it is August 2020, and that he is in [place] in [facility] in [place]. Speech and language functions are normal. - Labs CBC & Chem 7: 08/08/20 10:39 08/08/20 10:39 Labs: Abnormal Lab Results - Last 24 Hours (Table) 08/07/20 08/08/20 08/08/20 Range/Units 22:25 06:03 06:03 WBC 11.12 H (4.50-10.00) X 10*3/uL RBC 3.94 L (4.40-5.60) X 10*6/uL MCV 105.8 H (80.0-97.0) fL MCH 34.0 H (27.0-32.0) pg Neutrophils # 8.95 H (1.80-7.70) X 10*3/uL Sodium 149 H (137-145) mmol/L Chloride (96-109) mmol/L Carbon Dioxide (22-30) mmol/L BUN (9.0-27.0) mg/dL BUN/Creatinine Ratio (12.00-20.00) Ratio Glucose (70-110) mg/dL Calcium (8.7-10.3) mg/dL AST (14-35) U/L ALT (10-49) U/L Alkaline Phosphatase (41-126) U/L Total Protein (6.2-8.2) g/dL Albumin (3.80-4.90) g/dL Procalcitonin 0.20 H (0.02-0.09) ng/mL 08/08/20 08/08/20 08/08/20 Range/Units 06:03 10:39 10:39 WBC 11.2 H (4.50-10.00) X 10*3/uL RBC 4.04 L (4.40-5.60) X 10*6/uL MCV 102.1 H (80.0-97.0) fL MCH (27.0-32.0) pg Neutrophils # 9.3 H (1.80-7.70) X 10*3/uL Sodium 151 H 148 H (137-145) mmol/L Chloride 118 H 113 H (96-109) mmol/L Carbon Dioxide 33 H (22-30) mmol/L BUN 51.0 H 47 H (9.0-27.0) mg/dL BUN/Creatinine Ratio 51.00 H (12.00-20.00) Ratio Glucose 129 H 136 H (70-110) mg/dL Calcium 7.8 L 8.1 L (8.7-10.3) mg/dL AST 83 H (14-35) U/L ALT 83 H (10-49) U/L Alkaline Phosphatase 130 H (41-126) U/L Total Protein 5.1 L (6.2-8.2) g/dL Albumin 3.30 L (3.80-4.90) g/dL Procalcitonin (0.02-0.09) ng/mL Microbiology - Last 24 Hours (Table) 08/07/20 08:34 Blood Culture - Preliminary Blood No Growth after 24 hours 08/07/20 08:25 Blood Culture - Preliminary Blood No Growth after 24 hours Assessment and Plan Assessment: Acute dystonia-medication induced (Duopa)--improved Altered mental status due to metabolic encephalopathy (elevated LFT, mild hypernatremia (likely dehydration/lack of oral intake). Rule out underlying infection especially with low grade fever. Patient aggression behavioral seems to be due to medication effect (increased amantadine improved)---seems to improved (per patient has been having difficulty with Duopa for the past 5 years getting the right dose) Low grade fever due to Atelectasis vs aspiration pneumonia Advanced Parkinson's disease (for the past 17 years) s/p deep brain stimulation and on Duopa and amantadine Mild elevated liver function test (LFT: AST to ALT 124/67) Mild hypernatremia Hypothyroidism PEG tube in the last 4-5 years Plan: At present I did not see any obvious dystonic movements. Tone is normal. Patient is laying comfortably in the bed. We will continue to follow. Regarding his Duopa via PEG tube will hold for now then will start once the patient condition improves and will cut his normal dose to avoid any side- effects (likely to be restarted tomorrow). Continue Sinemet 25-100mg 1 tab QID via PEG tube. Starting tomorrow if patient is doing better will start the patinet on Amandine (but lower dose) with Duopa (which combination can help avoid dystonic/dyskinetic) Vitamin B12: 392 (normal), patient has received Vitamin B12 1000mcg IM once and then 1000mg daily. Folate >24 (normal). Continue physical therapy and occupation therapy. Avoid any opiate/narcotic or sedative that would affect the patient's mentation.
[2020-08-09] MEDS: PIPERACILLIN-TAZOBACTAM 3.375 GM in SODIUM CHLORIDE 0.9% 100 ML IVPB SCH ×3 (00:50→15:10)
[2020-08-09] MEDS: HEPARIN SODIUM,PORCINE/PF 5,000 UNIT/0.5 ML SYRINGE SQ SCH ×3 (00:50→15:10)
[2020-08-09] MEDS: DEXTROSE 5% IN WATER 1,000 ML IV SCH ×3 (04:39→12:45)
[2020-08-09] MEDS: LEVOTHYROXINE 125 MCG TAB PO SCH (05:46)
[2020-08-09] MEDS: IPRATROPIUM-ALBUTEROL 3 ML NEB INHALATION SCH ×4 (07:30→19:32)
[2020-08-09] MEDS: CARBIDOPA-LEVODOPA 25-100 MG 1 EACH TAB PO SCH ×4 (07:58→22:46)
[2020-08-09] MEDS: PANTOPRAZOLE 40 MG/10 ML VIAL IVP SCH (07:58)
[2020-08-09] MEDS: CYANOCOBALAMIN 500 MCG TAB PO SCH (07:58)
[2020-08-09] MEDS: FAMOTIDINE 20 MG TAB PEG/G-TUBE SCH (07:59)
--- NOTE | 2020-08-09 12:53 | P.PN ---
Subjective Progress Note Date: 08/09/20 Principal diagnosis: Dyspnea, pneumonia 69-year-old male patient with advanced Parkinson's disease who has intrathecal dopamine pump in addition to an alternative stimulators was hospitalized on 08/05/2020 because of generalized weakness, falls and complications related to his Parkinson's disease. Apparently the patient received his COVID-19 vaccination and since then his been having some issues with complications related to Parkinson's disease. He has been seen by neurology during his hospital stay. CAT scan of the brain showed no acute abnormalities. CAT scan of the cervical spine showed no acute fractures. Chest x-ray showed some mild cardiomegaly. Chest x-ray showed some questionable perihilar infiltrate on the right. Aspiration was suspected. The patient was started on IV Zosyn. The patient has a PEG tube feeding for nutritional support. Mucous membranes are dry. He has a weak cough. No signs of any respiratory distress. Time of evaluation, the patient's breathing was nonlabored. The patient was having some altered mentation aggressive behavior. He was seen by neurology and the recommendation was to continue the levo dopa carbidopa combination and amantadine was held. He was also started on Seroquel 25 mg as a starting dose and the dose was being titrated accordingly. No previous history of DVT. No proptosis of pulmonary embolism. No episodes of recurrent aspiration pneumonia. On 08/09/2020 patient seen in follow-up on medical surgical floor. He sitting up in the chair today, much more alert, he is breathing comfortably, his cough is stronger, noncongested, his is at the bedside, she states patient looks and feels better. He is currently on 2 L of oxygen his pulse ox is 96%, no fever or chills, his potassium level came back low at 0.20. Today's labs have been reviewed, his white blood cell count is stable at 11.2, hemoglobin is 13.9, sodium is 148, potassium 3.7, chloride is 113, CO2 33, BUN of 47 creatinine is 1 .01, patient continues on D5W at 125 ML per hour. he denies any acute events overnight. Mentally she looks much better, he is answering some simple questions, denies any acute distress, overall he states he is feeling better. Objective - Vital Signs Vital signs: Vital Signs Temp 97.9 F 08/09/20 08:00 Pulse 78 05/04/21 08:00 Resp 18 08/09/20 08:00 BP 149/80 08/09/20 08:00 Pulse Ox 96 08/09/20 08:00 Intake & Output 08/08/20 08/09/20 08/09/20 18:59 06:59 18:59 Output Total 450 575 Balance -450 -575 Weight 80 kg 78 kg Output: Urine 450 575 Straight 450 Other: Voiding Method Indwelling Catheter Indwelling Catheter Indwelling Catheter - Exam GENERAL EXAM: Alert, very pleasant, 69-year-old white male, on 2 L of oxygen and the pulse ox 96%, sitting up in a recliner, with his at the bedside, he has involuntary movements of his lower extremities related to his history of Parkinson's comfortable in no apparent distress. HEAD: Normocephalic/atraumatic. EYES: Normal reaction of pupils, equal size. Conjunctiva pink, sclera white. NOSE: Clear with pink turbinates. THROAT: No erythema or exudates. NECK: No masses, no JVD, no thyroid enlargement, no adenopathy. CHEST: No chest wall deformity. Symmetrical expansion. Patient has bilateral nerve stimulators implanted in his bilateral anterior chest LUNGS: Equal air entry with no crackles, wheeze, rhonchi or dullness. CVS: Regular rate and rhythm, normal S1 and S2, no gallops, no murmurs, no rubs ABDOMEN: Soft, nontender. No hepatosplenomegaly, normal bowel sounds, no guarding or rigidity. EXTREMITIES: No clubbing, no edema, no cyanosis, 2+ pulses and upper and lower extremities. MUSCULOSKELETAL: Muscle strength and tone normal. SPINE: No scoliosis or deformity SKIN: No rashes CENTRAL NERVOUS SYSTEM: Alert and oriented -2. No focal deficits, and patient has dystonic movements his lower extremities related to his history of Parkinson's - Labs CBC & Chem 7: 08/08/20 10:39 08/08/20 10:39 Labs: Abnormal Lab Results - Last 24 Hours (Table) 08/08/20 Range/Units 06:03 Procalcitonin 0.20 H (0.02-0.09) ng/mL Microbiology - Last 24 Hours (Table) 08/07/20 08:34 Blood Culture - Preliminary Blood No Growth after 48 hours 08/07/20 08:25 Blood Culture - Preliminary Blood No Growth after 48 hours Assessment and Plan Plan: 1 Parkinson's disease with significant neurologic impairment and cognitive impairment and tremors a movement disorder. The patient has an intrathecal dopamine pump and the patient also has bilateral nerve stimulators. 2 possible aspiration with some limited right perihilar infiltrate currently on 2 L about 2 by nasal cannula. The patient is receiving enteral feeding for nutritional support, Of significance also has a weak cough 3 altered mentation along with some aggressive behavior and psychosis at time of admission, appropriate drug adjustments were done and the patient was taken off the amantadine and the patient was started on Seroquel 4 enteral feeding for nutritional support 5 hypothyroidism 6 hyperchloremic hypernatremia, improving and the sodium level is down to 148 Plan: Patient is doing well Afebrile Vital signs are stable Procalcitonin level was negative Clinically he is looking better, no worsening dyspnea or cough Electrolytes are improving, his mentation is improving, he seems very comfortable, clinically stable Pulmonary service will sign off and follow on an as-needed basis I performed a history & physical examination of the patient and discussed their management with my nurse practitioner, Anel Roberto. I reviewed the nurse practitioner's note and agree with the documented findings and plan of care. Lung sounds are positive for diminished breath sounds. The findings and the impression was discussed with the patient. I attest to the documentation by the nurse practitioner. Time with Patient: Less than 30
[2020-08-09 12:56] LABS: Basophils % (A) 0 %; Eosinophils # (A) 0.2 k/uL (0-0.7); Eosinophils % (A) 1 %; HCT 42.5 % (39.0-53.0); HGB 14.5 gm/dL (13.0-17.5); Lymphocytes # (A) 1.2 k/uL (1.0-4.8); Lymphocytes % (A) 12 %; MCH 34.7 pg (25.0-35.0); MCHC 34.2 g/dL (31.0-37.0); MCV 101.5 fL (80.0-100.0); Mean Platelet Volume 8.7; Monocytes # (A) 0.5 k/uL (0-1.0); Monocytes % (A) 4 %; Neutrophils # (A) 8.7 k/uL (1.3-7.7); Neutrophils % (A) 82 %; Platelet Count 170 k/uL (150-450); RBC 4.18 m/uL (4.30-5.90); WBC 10.6 k/uL (3.8-10.6)
--- NOTE | 2020-08-09 13:14 | P.PN ---
Subjective Progress Note Date: 08/09/20 HISTORY OF PRESENT ILLNESS This is a 69-year-old male patient of mine with past medical history of Parkinson's disease status post intrathecal dopamine pump, hypothyroidism, vitamin D deficiency, detached right retina. His neurologist is Dr. Stallworth and he had recent family increased amantadine from 68.5 mg 237 mg one and half weeks ago and then increased to 174 mg on Saturday. Since the dose was increased, patient has had increasing weakness with falls, falling backward. Patient was brought into [facility] emergency center for evaluation. He was afebrile, heart rate 97, blood pressure 145/81, pulse ox 94% on room air. Last evening, patient received Zyprexa, Geodon and during evaluation today, aggressive behavior was improved. Patient has been seen by neurology with recommendations to continue carbidopa/levodopa via PEG tube, hold amantadine, consult PT and OT. Vitamin B12 and folate levels were ordered. Dr. Tolentino recommended Nuplazid (primavanserin) antipsychotic but not available in the hospital but can't be prescribed as an outpatient. Otherwise Seroquel 25 mg at bedtime and titrate up if needed. Recommendations also follow-up with his neurologist in 1-2 weeks after discharge. Laboratory studies: CBC was unremarkable. Electrolytes unremarkable. BUN 39 and creatinine 1.12. Blood sugar 114. SARS-CoV-2, RSV, and influenza not dete cted. CAT scan of the brain showed no acute intracranial hemorrhage, mass effect or midline shift. CAT scan of the cervical spine showed no acute fracture or dislocation. CAT scan mentions correlate for possible Covid pneumonia. Left hand x-ray shows no acute fracture or dislocation. Left tib-fib x-ray shows no acute fracture or dislocation. Chest x-ray reveals mild cardiomegaly and chronic changes without acute pulmonary process. 08/06: Patient sitting up in bed and is more awake and alert today he continues to be a bit confused, he did receive Geodon 20 mg IM yesterday, his was at bed side and she was questioning whether or not the patient to be transferred to [facility] where his neurologist is, however I told her we can start the Duo-Dopa here in the hospital during the day and she is in charge and that she would be taken off at night, and resume his feeding at nighttime, patient is able to use some water, patient already was seen in consultation by neurology we'll continue the current treatment plan, patient can be discharged home on Saturday with Nuplazid I will try to get some samples from the office. 08/07: Patient is sitting up in bed he continues to be restless he was seen earlier by neurology, he was started on Sinemet through the tube feeding he could not tolerate his Duodopa, this will continue to be off, he is off Gocovri , he had low-grade temperature, he appears to be tachypneic, his body is warm, he had occasional cough, appears to be a bit short of breath, a stat portable chest was done showed right perihilar atelectasis versus infiltrate he would be started on IV antibiotic in the form of Zosyn 3.375 g IV piggyback every 8 hours, continue IV fluid will increase the rate to 1 25 mL an hour, monitor the patient urine output, monitor the patient urine culture and blood culture as well. 08/08: The patient had Clayton catheter placed last evening for urinary retention. Sodium last evening at 10 PM was 149. Patient is awake and able to answer que stions but is very restless, sitter is at bedside. Patient is complaining of a sore throat but no complaints of significant pain. He does have phlegm in the back of his throat. He denies having a cough. Pulmonary medicine will be added. Temperature max was 99.4 axillary, heart rate 74, respiratory rate 26, blood pressure 105/54, pulse ox 95% on 2 L nasal cannula. Yesterday afternoon pulse ox was 89% on room air and he is currently 96% on 2 L nasal cannula. Repeat blood work is pending at the time of this dictation 8 AM. 08/09: Patient is seen today and his is at bedside. Patient is awake and alert. He does have jerking motion mostly on the right side. Patient did receive Sinemet. Discussed plan of care with the patient and his . Tomorrow morning patient will be resumed on his pump and she will bring it from home. Dr. Milian did make note about a decreased dose when resuming. We will plan to remove Clayton catheter tomorrow morning. IV fluids decreased to 75 mL per hour. Repeat blood work reveals WBC 10.6, hemoglobin 14.5, platelet count 170. Electrolytes and renal function are normal. Blood sugar 118. Calcium 7.8. Total bilirubin 0.3, AST 62, ALT 94, alkaline phosphatase 127. Patient is continued on Zosyn for possible aspiration pneumonia. Plan for discharge is home on . REVIEW OF SYSTEMS Constitutional: Positive for fever, positive for chills, no night sweats. No weight change. positive for weakness, fatigue or lethargy. No daytime sleepiness. HEENT: No headache. No blurred vision or double vision, no loss of vision. No loss of Hearing, no ringing in the ears, no dizziness. No nasal drainage or congestion. No epistaxis. No sore throat. Lungs: positive for shortness of breath, positive for occasional cough, no sputum production. No wheezing. Cardiovascular: No chest pain, no lower extremity edema. No palpitations. No paroxysmal nocturnal dyspnea. No orthopnea. No lightheadedness or dizziness. No syncopal episodes. Abdominal: No abdominal pain. No nausea, vomiting. No diarrhea. No cons tipation. No bloody or tarry stools. Genitourinary: No dysuria, increased frequency, urgency. Reported urinary retention. Musculoskeletal: No myalgias. Positive for muscle weakness, positive for gait dysfunction, continues with restlessness and spasticity of the neck and upper torso. Integumentary: No wounds, no lesions. No rash or pruritus. No unusual bruising. No change in hair or nails. Neurologic: Continues to have encephalopathy , pressured speech, restlessness, spasticity of the upper torso and the neck. Psychiatric: Psychosis resolved. Endocrine: No abnormal blood sugars. No weight change. No excessive sweating or thirst. No cold intolerance. PHYSICAL EXAMINATION Gen: This is a 69-year-old male patient resting in bed in no respiratory distress. HEENT: Head is atraumatic, normocephalic. Pupils round. Sclerae is anicteric. 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 Oral mucous membranes are dry, there is dopamine reservoirs bilaterally. NECK: Supple. No JVD. No lymphadenopathy. No thyromegaly. LUNGS: there is decreased breath sounds at the bases, few rhonchi, minimal expiratory wheezes, no chest wall tenderness, no intercostal retractions, bilateral batteries in upper chest. HEART: First heart sound is depressed, second heart sound is normal, there is no gallop or murmur, no rubs or heaves. ABDOMEN: Soft. Bowel sounds are present. No masses. No tenderness. PEG tube site with no signs of drainage, erythema. Clayton catheter draining clear radha urine. EXTREMITIES: No pedal edema. No calf tenderness. dorsalis pedis +2 bilaterally, bilateral hammertoes. NEUROLOGICAL: Patient is awake, alert and oriented to person and able to follow simple commands no aphasia. Masklike face. 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 ASSESSMENT AND PLAN 1. Aggressive behavior with acute psychosis secondary to amantadine recently increased dosing. Amantadine on hold. Consult with neurology appreciated. patient has been maintained on Seroquel 25 mg at bedtime, continue patient on Sinemet as ordered by neurology, plan to resume pump tomorrow and hold Sinemet. 2. Parkinson's disease on dopamine pump. Patient's to bring in pump device from home. Hold amantadine. Continue carbidopa levodopa per PEG as ordered by neurology. 3. Moderate protein calorie malnutrition and risk for aspiration, chronic PEG tube. Continue to feeding at night. 4. Hypothyroidism. Continue levothyroxine 125 g daily. 5. Vitamin D deficiency, stable. 6. Macrocytosis. Vitamin B12 392 and folate greater than 24. 7. GI prophylaxis. Pepcid 20 mg daily per PEG tube. 8. DVT prophylaxis. continue heparin 5000 units subcutaneously every 12 hours. 9. COVID-19 testing negative. Patient has been hospitalized during a pandemic. 10. Right perihilar infiltrate cirrhosis of atelectasis versus aspiration pneumonia start the patient on Zosyn 3.375 g IV piggyback every 8 hours, continue to monitor the patient very closely, nebulized treatment in the form of DuoNeb 3 mg nebulization 4 times every day, oxygen support as needed. Consult added for pulmonary medicine. 11. Hypernatremia. Patient was started on IV fluids D5 at 125 mL per hour yesterday. Sodium last evening was improved. Repeat blood work this morning remains pending. DISCHARGE PLAN Most likely return home on . PT and OT consults. Impression and plan of care have been directed as dictated by the signing physician. Sofía Kulkarni nurse practitioner acting as scribe for signing kevon smith. Objective - Vital Signs Vital signs: Vital Signs Temp 97.9 F 08/09/20 08:00 Pulse 78 08/09/20 08:00 Resp 18 08/09/20 08:00 BP 149/80 08/09/20 08:00 Pulse Ox 96 08/09/20 08:00 Intake & Output 08/08/20 08/09/20 08/09/20 18:59 06:59 18:59 Output Total 450 575 Balance -450 -575 Weight 80 kg 78 kg Output: Urine 450 575 Straight 450 Other: Voiding Method Indwelling Catheter Indwelling Catheter Indwelling Catheter - Labs CBC & Chem 7: 08/10/20 05:18 08/10/20 05:18 Labs: Abnormal Lab Results - Last 24 Hours (Table) 08/08/20 Range/Units 06:03 Procalcitonin 0.20 H (0.02-0.09) ng/mL Microbiology - Last 24 Hours (Table) 08/07/20 08:34 Blood Culture - Preliminary Blood No Growth after 48 hours 08/07/20 08:25 Blood Culture - Preliminary Blood No Growth after 48 hours
[2020-08-10] MEDS: HEPARIN SODIUM,PORCINE/PF 5,000 UNIT/0.5 ML SYRINGE SQ SCH ×4 (01:44→23:32)
[2020-08-10] MEDS: PIPERACILLIN-TAZOBACTAM 3.375 GM in SODIUM CHLORIDE 0.9% 100 ML IVPB SCH ×4 (02:12→23:33)
[2020-08-10] MEDS: LEVOTHYROXINE 125 MCG TAB PO SCH (06:18)
[2020-08-10] MEDS: DEXTROSE 5% IN WATER 1,000 ML IV SCH ×2 (06:18→14:39)
[2020-08-10] MEDS: CARBIDOPA-LEVODOPA 25-100 MG 1 EACH TAB PO SCH ×2 (06:59→07:00)
[2020-08-10] MEDS: FAMOTIDINE 20 MG TAB PEG/G-TUBE SCH (08:01)
[2020-08-10] MEDS: PANTOPRAZOLE 40 MG/10 ML VIAL IVP SCH (08:01)
[2020-08-10] MEDS: CYANOCOBALAMIN 500 MCG TAB PO SCH (08:01)
[2020-08-10] MEDS: IPRATROPIUM-ALBUTEROL 3 ML NEB INHALATION SCH ×4 (08:05→22:01)
--- NOTE | 2020-08-10 09:45 | P.PN ---
Subjective Progress Note Date: 08/09/20 Principal diagnosis: This is a late entry. Patient was seen actually on 08/09/2020 at around 3:30 PM. Apparently I forgot to initiate the note. Therefore actual date of service is 08/09/2020. 08/09/2020: Patient's was also present today. Patient has history of Parkinson's disease for last 17 years. He follows up with Dr. Stallworth.. Patient has bilateral DBS. Per patient's , he was doing relatively well on Sinemet 10/100 half tablet every 2 hours. He also has Duopa pump that was placed couple years ago. Patient started having freezing and couldn't swallow therefore his neurologist started patient on Gocovri 68.5 mg and he was doing well. He also did well when the dose was increased to 137 mg. When the dose was increased to 274 mg, on 08/05/2020, that is when patient started having active hallucinations, altered mental status, staring spells. Prior he was able to walk around the house with his walker. Patient has been started on Sinemet 25/100, 4 times a day by Dr. Manish Tolentino. Patient's states that when he takes Sinemet, he gets some dyskinesias but after one hour at calms down and he is fine. She is planning to bring the pump tomorrow. 08/08/2020: Patient was seen for a follow-up. Patient initially seen by Dr. Manish Tolentino. Please refer to his note for details. Patient has history of Parkinson's disease for last 17 years, also had undergone placement of bilateral DBS, and PEG placement also on Duopa intrathecal pump. Patient has presented with dystonia and dyskinesia. Patient was amantadine, which was discontinued as it was producing progressive dystonic behavior. Patient was given Benadryl and Cogentin. Objective - Vital Signs Vital signs: Vital Signs Temp 98.0 F 08/10/20 07:48 Pulse 74 08/10/20 08:14 Resp 20 08/10/20 07:48 BP 136/78 08/10/20 07:48 Pulse Ox 97 08/10/20 07:48 Intake & Output 08/09/20 08/10/20 08/10/20 18:59 06:59 18:59 Intake Total 0 Output Total 700 875 Balance -700 -875 Weight 79 kg Intake: Oral 0 Output: Urine 700 875 Other: Voiding Method Indwelling Catheter Indwelling Catheter # Bowel Movements 2 1 - Exam On examination patient is an elderly male, laying comfortably in the bed. Again, there were no dystonic movements, or dyskinesia is noted. Tone is mildly increased. No bradykinesia, no tremors, dyskinesia. Muscle strength appears normal. Patient knows it is August 2020, and that he is in [place] in [facility] in [place]. Speech and language functions are normal. - Labs CBC & Chem 7: 08/09/20 12:36 08/08/20 10:39 Labs: Abnormal Lab Results - Last 24 Hours (Table) 08/09/20 Range/Units 12:36 RBC 4.18 L (4.30-5.90) m/uL MCV 101.5 H (80.0-100.0) fL Neutrophils # 8.7 H (1.3-7.7) k/uL Microbiology - Last 24 Hours (Table) 08/07/20 08:34 Blood Culture - Preliminary Blood No Growth after 48 hours 08/07/20 08:25 Blood Culture - Preliminary Blood No Growth after 48 hours Assessment and Plan Assessment: Acute dystonia-medication induced (probably due to Gocovri, which is extended release amantadine)--improved since stopping amantadine Altered mental status due to metabolic encephalopathy (elevated LFT, mild hypernatremia (likely dehydration/lack of oral intake). Rule out underlying infection especially with low grade fever. Patient aggression behavioral seems to be due to medication effect (due to increased dose of amantadine, now improved)---seems to improved (per patient has been having difficulty with Duopa for the past 5 years getting the right dose) Low grade fever due to Atelectasis vs aspiration pneumonia Advanced Parkinson's disease (for the past 17 years) s/p deep brain stimulation and on Duopa and amantadine Mild elevated liver function test (LFT: AST to ALT 124/67) Mild hypernatremia Hypothyroidism PEG tube in the last 4-5 years Plan: At present I did not see any obvious dystonic movements. Tone is mildly increased. Patient is laying comfortably in the bed. We will continue to follow. Patient's will bring Duopa pump tomorrow and we will see how he does. Continue Sinemet 25-100mg 1 tab QID via PEG tube. If dyskinesias reappear, we will consider low-dose amantadine. Vitamin B12: 392 (normal), patient has received Vitamin B12 1000mcg IM once and then 1000mg daily. Folate >24 (normal). Continue physical therapy and occupation therapy. Avoid any opiate/narcotic or sedative that would affect the patient's mentation.
[2020-08-10 10:11] LABS: HCT 41.8 % (39.6-50.0); HGB 13.8 g/dL (13.0-17.0); MCH 33.9 pg (27.0-32.0); MCV 102.7 fL (80.0-97.0); Mean Platelet Volume 12.5 fL (9.5-12.2); Platelet Count 173 X 10*3/uL (140-440); RBC 4.07 X 10*6/uL (4.40-5.60); WBC 8.79 X 10*3/uL (4.50-10.00)
[2020-08-10 11:28] LABS: Albumin 3.2 g/dL (3.80-4.90); Albumin/Globulin Ratio 1.78 (1.60-3.17); Anion Gap 8.9 mmol/L (4.00-12.00); Calcium 7.8 mg/dL (8.7-10.3); Carbon Dioxide 25.1 mmol/L (21.6-31.8); Globulin 1.8 g/dL (1.6-3.3); Non-African American GFR(CKD) 75.9 (60.0-200.0); Total Bilirubin 0.3 mg/dL (0.2-1.2)
--- NOTE | 2020-08-10 15:13 | P.PN ---
Subjective Progress Note Date: 08/10/20 HISTORY OF PRESENT ILLNESS This is a 69-year-old male patient of mine with past medical history of Parkinson's disease status post intrathecal dopamine pump, hypothyroidism, vitamin D deficiency, detached right retina. His neurologist is Dr. Stallworth and he had recent family increased amantadine from 68.5 mg 237 mg one and half weeks ago and then increased to 174 mg on Saturday. Since the dose was increased, patient has had increasing weakness with falls, falling backward. Patient was brought into [facility] emergency center for evaluation. He was afebrile, heart rate 97, blood pressure 145/81, pulse ox 94% on room air. Last evening, patient received Zyprexa, Geodon and during evaluation today, aggressive behavior was improved. Patient has been seen by neurology with recommendations to continue carbidopa/levodopa via PEG tube, hold amantadine, consult PT and OT. Vitamin B12 and folate levels were ordered. Dr. Tolentino recommended Nuplazid (primavanserin) antipsychotic but not available in the hospital but can't be prescribed as an outpatient. Otherwise Seroquel 25 mg at bedtime and titrate up if needed. Recommendations also follow-up with his neurologist in 1-2 weeks after discharge. Laboratory studies: CBC was unremarkable. Electrolytes unremarkable. BUN 39 and creatinine 1.12. Blood sugar 114. SARS-CoV-2, RSV, and influenza not dete cted. CAT scan of the brain showed no acute intracranial hemorrhage, mass effect or midline shift. CAT scan of the cervical spine showed no acute fracture or dislocation. CAT scan mentions correlate for possible Covid pneumonia. Left hand x-ray shows no acute fracture or dislocation. Left tib-fib x-ray shows no acute fracture or dislocation. Chest x-ray reveals mild cardiomegaly and chronic changes without acute pulmonary process. 08/06: Patient sitting up in bed and is more awake and alert today he continues to be a bit confused, he did receive Geodon 20 mg IM yesterday, his was at bed side and she was questioning whether or not the patient to be transferred to [facility] where his neurologist is, however I told her we can start the Duo-Dopa here in the hospital during the day and she is in charge and that she would be taken off at night, and resume his feeding at nighttime, patient is able to use some water, patient already was seen in consultation by neurology we'll continue the current treatment plan, patient can be discharged home on Saturday with Nuplazid I will try to get some samples from the office. 08/07: Patient is sitting up in bed he continues to be restless he was seen earlier by neurology, he was started on Sinemet through the tube feeding he could not tolerate his Duodopa, this will continue to be off, he is off Gocovri , he had low-grade temperature, he appears to be tachypneic, his body is warm, he had occasional cough, appears to be a bit short of breath, a stat portable chest was done showed right perihilar atelectasis versus infiltrate he would be started on IV antibiotic in the form of Zosyn 3.375 g IV piggyback every 8 hours, continue IV fluid will increase the rate to 1 25 mL an hour, monitor the patient urine output, monitor the patient urine culture and blood culture as well. 08/08: The patient had Clayton catheter placed last evening for urinary retention. Sodium last evening at 10 PM was 149. Patient is awake and able to answer que stions but is very restless, sitter is at bedside. Patient is complaining of a sore throat but no complaints of significant pain. He does have phlegm in the back of his throat. He denies having a cough. Pulmonary medicine will be added. Temperature max was 99.4 axillary, heart rate 74, respiratory rate 26, blood pressure 105/54, pulse ox 95% on 2 L nasal cannula. Yesterday afternoon pulse ox was 89% on room air and he is currently 96% on 2 L nasal cannula. Repeat blood work is pending at the time of this dictation 8 AM. 08/09: Patient is seen today and his is at bedside. Patient is awake and alert. He does have jerking motion mostly on the right side. Patient did receive Sinemet. Discussed plan of care with the patient and his . Tomorrow morning patient will be resumed on his pump and she will bring it from home. Dr. Milian did make note about a decreased dose when resuming. We will plan to remove Clayton catheter tomorrow morning. IV fluids decreased to 75 mL per hour. Repeat blood work reveals WBC 10.6, hemoglobin 14.5, platelet count 170. I am 148, potassium 3.7, chloride 113, CO2 33,, BUN 47 creatinine 1.01. Blood sugar 136. Patient is continued on Zosyn for possible aspiration pneumonia. Plan for discharge is home on . 08/10: Patient has been afebrile, heart rate 66, blood pressure 136/78, pulse ox 97% on 2 L nasal cannula. WBC 8.7, hemoglobin 13.8, platelet count 173. Electrolytes and renal function are normal. Blood sugar 118. Calcium 7.8. Total bilirubin 0.3, AST 62, ALT 94, alkaline phosphatase 127. The cultures no growth at 72 hours. Patient started on Duopa pump today and Clayton catheter to be removed. Patient has been seen and followed by pulmonary medicine and subsequently signed off his case. Therapies have evaluated and recommend home with 24-hour care. Anticipate discharge home tomorrow. REVIEW OF SYSTEMS Constitutional: Positive for fever, positive for chills, no night sweats. No w eight change. positive for weakness, fatigue or lethargy. No daytime sleepiness. HEENT: No headache. No blurred vision or double vision, no loss of vision. No loss of Hearing, no ringing in the ears, no dizziness. No nasal drainage or congestion. No epistaxis. No sore throat. Lungs: positive for shortness of breath, positive for occasional cough, no sputum production. No wheezing. Cardiovascular: No chest pain, no lower extremity edema. No palpitations. No paroxysmal nocturnal dyspnea. No orthopnea. No lightheadedness or dizziness. No syncopal episodes. Abdominal: No abdominal pain. No nausea, vomiting. No diarrhea. No constipation. No bloody or tarry stools. Genitourinary: No dysuria, increased frequency, urgency. Reported urinary retention. Musculoskeletal: No myalgias. Positive for muscle weakness, positive for gait dysfunction, continues with restlessness and spasticity of the neck and upper torso. Integumentary: No wounds, no lesions. No rash or pruritus. No unusual bruising. No change in hair or nails. Neurologic: Continues to have encephalopathy , pressured speech, restlessness, spasticity of the upper torso and the neck. Psychiatric: Psychosis resolved. Endocrine: No abnormal blood sugars. No weight change. No excessive sweating or thirst. No cold intolerance. PHYSICAL EXAMINATION Gen: This is a 69-year-old male patient resting in bed in no respiratory distress. HEENT: Head is atraumatic, normocephalic. Pupils round. Sclerae is anicteric. 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 Oral mucous membranes are dry, there is dopamine reservoirs bilaterally. NECK: Supple. No JVD. No lymphadenopathy. No thyromegaly. LUNGS: there is decreased breath sounds at the bases, few rhonchi, minimal expiratory wheezes, no chest wall tenderness, no intercostal retractions, bilateral batteries in upper chest. HEART: First heart sound is depressed, second heart sound is normal, there is n o gallop or murmur, no rubs or heaves. ABDOMEN: Soft. Bowel sounds are present. No masses. No tenderness. PEG tube site with no signs of drainage, erythema. Clayton catheter draining clear radha urine. EXTREMITIES: No pedal edema. No calf tenderness. dorsalis pedis +2 bilaterally, bilateral hammertoes. NEUROLOGICAL: Patient is awake, alert and oriented to person and able to follow simple commands no aphasia. Masklike face. 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 ASSESSMENT AND PLAN 1. Aggressive behavior with acute psychosis secondary to amantadine recently increased dosing. Amantadine on hold. Consult with neurology appreciated. Patient will be resumed on Duopa pump today and discontinue sinemet. Neurology is following. 2. Parkinson's disease on dopamine pump. Patient's to bring in pump device from home to start today. Hold amantadine. Discontinue carbidopa levodopa. 3. Moderate protein calorie malnutrition and risk for aspiration, chronic PEG tube. Continue to feeding at night. 4. Hypothyroidism. Continue levothyroxine 125 g daily. 5. Vitamin D deficiency, stable. 6. Macrocytosis. Vitamin B12 392 and folate greater than 24. 7. GI prophylaxis. Pepcid 20 mg daily per PEG tube. 8. DVT prophylaxis. continue heparin 5000 units subcutaneously every 12 hours. 9. COVID-19 testing negative. Patient has been hospitalized during a pandemic. 10. Right perihilar infiltrate cirrhosis of atelectasis versus aspiration pneumonia start the patient on Zosyn 3.375 g IV piggyback every 8 hours, continue to monitor the patient very closely, nebulized treatment in the form of DuoNeb 3 mg nebulization 4 times every day, oxygen support as needed. Consult pulmonary medicine appreciated. 11. Hypernatremia. Patient was started on IV fluids D5 decreased to 75 mL per hour yesterday. DISCHARGE PLAN Most likely return home on . PT and OT consults. Impression and plan of care have been directed as dictated by the signing physician. Sofía Kulkarni nurse practitioner acting as scribe for signing kevon smith. Objective - Vital Signs Vital signs: Vital Signs Temp 98.0 F 08/10/20 07:48 Pulse 70 08/10/20 12:10 Resp 20 08/10/20 07:48 BP 136/78 08/10/20 07:48 Pulse Ox 97 08/10/20 07:48 Intake & Output 08/09/20 08/10/20 08/10/20 18:59 06:59 18:59 Intake Total 0 Output Total 700 875 500 Balance -700 -875 -500 Weight 79 kg Intake: Oral 0 Output: Urine 700 875 500 Straight 500 Other: Voiding Method Indwelling Catheter Indwelling Catheter Indwelling Catheter # Bowel Movements 2 1 - Labs CBC & Chem 7: 08/10/20 05:18 08/10/20 05:18 Labs: Abnormal Lab Results - Last 24 Hours (Table) 08/09/20 08/10/20 08/10/20 Range/Units 12:36 05:18 05:18 RBC 4.18 L 4.07 L (4.30-5.90) m/uL MCV 101.5 H 102.7 H (80.0-100.0) fL MCH 33.9 H (27.0-32.0) pg MPV 12.5 H (9.5-12.2) fL Neutrophils # 8.7 H (1.3-7.7) k/uL BUN/Creatinine Ratio 25.00 H (12.00-20.00) Ratio Glucose 118 H (70-110) mg/dL Calcium 7.8 L (8.7-10.3) mg/dL AST 62 H (14-35) U/L ALT 94 H (10-49) U/L Alkaline Phosphatase 127 H (41-126) U/L Total Protein 5.0 L (6.2-8.2) g/dL Albumin 3.20 L (3.80-4.90) g/dL Microbiology - Last 24 Hours (Table) 08/07/20 08:34 Blood Culture - Preliminary Blood No Growth after 72 hours 08/07/20 08:25 Blood Culture - Preliminary Blood No Growth after 72 hours
--- NOTE | 2020-08-10 18:14 | P.PN ---
Subjective Progress Note Date: 08/10/20 08/10/2020: Patient was seen at around 1:15 PM. Patient's has started on Duopa pump since 9 AM. Patient received 13.0 mg bolus dose followed by 1.7 mg rate. Patient has immediately developed severe dyskinesias, dystonia, very uncomfortable. Patient's has decreased the rate down to 1.5 and then 1.3 at 12:45 PM, but patient continues to be very dyskinetic. It was decided to further decrease down the dose to 1.0 mg rate. We will reassess at 3:30 PM. Patient is off Sinemet. 08/09/2020: Patient's was also present today. Patient has history of Parkinson's disease for last 17 years. He follows up with Dr. Stallworth.. Patient has bilateral DBS. Per patient's , he was doing relatively well on Sinemet 10/100 half tablet every 2 hours. He also has Duopa pump that was placed couple years ago. Patient started having freezing and couldn't swallow therefore his neurologist started patient on Gocovri 68.5 mg and he was doing well. He also did well when the dose was increased to 137 mg. When the dose was increased to 274 mg, on 08/05/2020, that is when patient started having active hallucinations, altered mental status, staring spells. Prior he was able to walk around the house with his walker. Patient has been started on Sinemet 25/100, 4 times a day by Dr. Manish Tolentino. Patient's states that when he takes Sinemet, he gets some dyskinesias but after one hour at calms down and he is fine. She is planning to bring the pump tomorrow. 08/08/2020: Patient was seen for a follow-up. Patient initially seen by Dr. Manish Tolenitno. Please refer to his note for details. Patient has history of Parkinson's disease for last 17 years, also had undergone placement of bilateral DBS, and PEG placement also on Duopa intrathecal pump. Patient has presented with dystonia and dyskinesia. Patient was amantadine, which was discontinued as it was producing progressive dystonic behavior. Patient was given Benadryl and Cogentin. Objective - Vital Signs Vital signs: Vital Signs Temp 98.4 F 08/10/20 14:00 Pulse 93 08/10/20 14:00 Resp 20 08/10/20 14:00 BP 103/43 08/10/20 14:00 Pulse Ox 94 L 08/10/20 14:00 Intake & Output 08/09/20 08/10/20 08/10/20 18:59 06:59 18:59 Intake Total 0 Output Total 700 875 500 Balance -700 -875 -500 Weight 79 kg Intake: Oral 0 Output: Urine 700 875 500 Straight 500 Other: Voiding Method Indwelling Catheter Indwelling Catheter Indwelling Catheter # Voids 2 # Bowel Movements 2 1 - Exam On examination patient is an elderly male, appears to be in distress because of significant dyskinesias bilaterally, right side much worse than the left. Speech and language functions are normal. - Labs CBC & Chem 7: 08/10/20 05:18 08/10/20 05:18 Labs: Abnormal Lab Results - Last 24 Hours (Table) 08/10/20 08/10/20 Range/Units 05:18 05:18 RBC 4.07 L (4.40-5.60) X 10*6/uL MCV 102.7 H (80.0-97.0) fL MCH 33.9 H (27.0-32.0) pg MPV 12.5 H (9.5-12.2) fL BUN/Creatinine Ratio 25.00 H (12.00-20.00) Ratio Glucose 118 H (70-110) mg/dL Calcium 7.8 L (8.7-10.3) mg/dL AST 62 H (14-35) U/L ALT 94 H (10-49) U/L Alkaline Phosphatase 127 H (41-126) U/L Total Protein 5.0 L (6.2-8.2) g/dL Albumin 3.20 L (3.80-4.90) g/dL Microbiology - Last 24 Hours (Table) 08/07/20 08:34 Blood Culture - Preliminary Blood No Growth after 72 hours 08/07/20 08:25 Blood Culture - Preliminary Blood No Growth after 72 hours Assessment and Plan Assessment: Acute dystonia-medication induced (probably due to Duopa and Gocovri, which is extended release amantadine)--improved since stopping amantadine Altered mental status due to metabolic encephalopathy (elevated LFT, mild hypernatremia (likely dehydration/lack of oral intake). Rule out underlying infection especially with low grade fever. Patient aggression behavioral seems to be due to medication effect (due to increased dose of amantadine, now improved)---seems to improved (per patient has been having difficulty with Duopa for the past 5 years getting the right dose) Low grade fever due to Atelectasis vs aspiration pneumonia Advanced Parkinson's disease (for the past 17 years) s/p deep brain stimulation and on Duopa and amantadine (Discontinued) Mild elevated liver function test (LFT: AST to ALT 94/127) Mild hypernatremia Hypothyroidism PEG tube in the last 4-5 years Plan: Patient has developed recurrence of severe dyskinesias on Duopa. Patient's Duopa infusion was decreased to 1.0. At 3:30 PM I called back, and apparently patient and his has completely stopped Duopa, as the dyskinesias were not getting any better with lowering the dose of Duopa. I discussed with patient about resuming Sinemet, but he declined at this time. We will follow patient in the morning. Continue Sinemet 25-100mg 1 tab QID via PEG tube. If dyskinesias reappear, we will consider low-dose amantadine. Vitamin B12: 392 (normal), patient has received Vitamin B12 1000mcg IM once and then 1000mg daily. Folate >24 (normal). Continue physical therapy and occupation therapy. Avoid any opiate/narcotic or sedative that would affect the patient's mentation.
[2020-08-11] MEDS: DEXTROSE 5% IN WATER 1,000 ML IV SCH (05:34)
[2020-08-11] MEDS: LEVOTHYROXINE 125 MCG TAB PO SCH (07:09)
[2020-08-11] MEDS: IPRATROPIUM-ALBUTEROL 3 ML NEB INHALATION SCH ×4 (08:14→21:33)
[2020-08-11] MEDS: FAMOTIDINE 20 MG TAB PEG/G-TUBE SCH (08:31)
[2020-08-11] MEDS: HEPARIN SODIUM,PORCINE/PF 5,000 UNIT/0.5 ML SYRINGE SQ SCH ×2 (08:31→14:48)
[2020-08-11] MEDS: PANTOPRAZOLE 40 MG/10 ML VIAL IVP SCH (08:31)
[2020-08-11] MEDS: PIPERACILLIN-TAZOBACTAM 3.375 GM in SODIUM CHLORIDE 0.9% 100 ML IVPB SCH ×2 (08:31→14:47)
[2020-08-11] MEDS: DEXTROSE 5%-0.45% NACL 1,000 ML IV SCH ×2 (08:31→17:36)
[2020-08-11] MEDS: CYANOCOBALAMIN 500 MCG TAB PO SCH (08:31)
[2020-08-11] MEDS: MUPIROCIN 2% OINT 22 GM TUBE TOPICAL SCH ×3 (08:57→20:28)
[2020-08-11] MEDS ORDERED: CARBIDOPA-LEVODOPA 25-100 MG 1 EACH TAB PO SCH (09:00)
[2020-08-11] MEDS: CARBIDOPA-LEVODOPA 25-100 MG 1 EACH TAB PO SCH ×5 (09:36→20:27)
--- NOTE | 2020-08-11 10:27 | P.PN ---
Subjective Progress Note Date: 08/11/20 HISTORY OF PRESENT ILLNESS This is a 69-year-old male patient of mine with past medical history of Parkinson's disease status post intrathecal dopamine pump, hypothyroidism, vitamin D deficiency, detached right retina. His neurologist is Dr. Stallworth and he had recent family increased amantadine from 68.5 mg 237 mg one and half weeks ago and then increased to 174 mg on Saturday. Since the dose was increased, patient has had increasing weakness with falls, falling backward. Patient was brought into [facility] emergency [facility] for evaluation. He was afebrile, heart rate 97, blood pressure 145/81, pulse ox 94% on room air. Last evening, patient received Zyprexa, Geodon and during evaluation today, aggressive behavior was improved. Patient has been seen by neurology with recommendations to continue carbidopa/levodopa via PEG tube, hold amantadine, consult PT and OT. Vitamin B12 and folate levels were ordered. Dr. Tolentino recommended Nuplazid (primavanserin) antipsychotic but not available in the hospital but can't be prescribed as an outpatient. Otherwise Seroquel 25 mg at bedtime and titrate up if needed. Recommendations also follow-up with his neurologist in 1-2 weeks after discharge. Laboratory studies: CBC was unremarkable. Electrolytes unremarkable. BUN 39 and creatinine 1.12. Blood sugar 114. SARS-CoV-2, RSV, and influenza not dete cted. CAT scan of the brain showed no acute intracranial hemorrhage, mass effect or midline shift. CAT scan of the cervical spine showed no acute fracture or dislocation. CAT scan mentions correlate for possible Covid pneumonia. Left hand x-ray shows no acute fracture or dislocation. Left tib-fib x-ray shows no acute fracture or dislocation. Chest x-ray reveals mild cardiomegaly and chronic changes without acute pulmonary process. 08/06: Patient sitting up in bed and is more awake and alert today he continues to be a bit confused, he did receive Geodon 20 mg IM yesterday, his was at bed side and she was questioning whether or not the patient to be transferred to [facility] where his neurologist is, however I told her we can start the Duo-Dopa here in the hospital during the day and she is in charge and that she would be taken off at night, and resume his feeding at nighttime, patient is able to use some water, patient already was seen in consultation by neurology we'll continue the current treatment plan, patient can be discharged home on Saturday with Nuplazid I will try to get some samples from the office. 08/07: Patient is sitting up in bed he continues to be restless he was seen earlier by neurology, he was started on Sinemet through the tube feeding he could not tolerate his Duodopa, this will continue to be off, he is off Gocovri , he had low-grade temperature, he appears to be tachypneic, his body is warm, he had occasional cough, appears to be a bit short of breath, a stat portable chest was done showed right perihilar atelectasis versus infiltrate he would be started on IV antibiotic in the form of Zosyn 3.375 g IV piggyback every 8 hours, continue IV fluid will increase the rate to 1 25 mL an hour, monitor the patient urine output, monitor the patient urine culture and blood culture as well. 08/08: The patient had Clayton catheter placed last evening for urinary retention. Sodium last evening at 10 PM was 149. Patient is awake and able to answer que stions but is very restless, sitter is at bedside. Patient is complaining of a sore throat but no complaints of significant pain. He does have phlegm in the back of his throat. He denies having a cough. Pulmonary medicine will be added. Temperature max was 99.4 axillary, heart rate 74, respiratory rate 26, blood pressure 105/54, pulse ox 95% on 2 L nasal cannula. Yesterday afternoon pulse ox was 89% on room air and he is currently 96% on 2 L nasal cannula. Repeat blood work is pending at the time of this dictation 8 AM. 08/09: Patient is seen today and his is at bedside. Patient is awake and alert. He does have jerking motion mostly on the right side. Patient did receive Sinemet. Discussed plan of care with the patient and his . Tomorrow morning patient will be resumed on his pump and she will bring it from home. Dr. Milian did make note about a decreased dose when resuming. We will plan to remove Clayton catheter tomorrow morning. IV fluids decreased to 75 mL per hour. Repeat blood work reveals WBC 10.6, hemoglobin 14.5, platelet count 170. I am 148, potassium 3.7, chloride 113, CO2 33,, BUN 47 creatinine 1.01. Blood sugar 136. Patient is continued on Zosyn for possible aspiration pneumonia. Plan for discharge is home on . 08/10: Patient has been afebrile, heart rate 66, blood pressure 136/78, pulse ox 97% on 2 L nasal cannula. WBC 8.7, hemoglobin 13.8, platelet count 173. Electrolytes and renal function are normal. Blood sugar 118. Calcium 7.8. Total bilirubin 0.3, AST 62, ALT 94, alkaline phosphatase 127. The cultures no growth at 72 hours. Patient started on Duopa pump today and Clayton catheter to be removed. Patient has been seen and followed by pulmonary medicine and subsequently signed off his case. Therapies have evaluated and recommend home with 24-hour care. Anticipate discharge home tomorrow. 08/11: Patient did not do well with Duopa pump with severe dyskinesias, dystonia and very uncomfortable. The dose was decreased but patient continued to have symptoms. Plan at this time is to hold pump and continue Sinemet 72465 milligrams 1 tablet 4 times daily. Neurology continues to follow May consider low-dose amantadine. Patient is noted to have a pustule and cellulitis of the left forearm secondary to previous IV site. Patient is on Zosyn already for aspiration pneumonia and will also be added Bactroban to be applied locally. Patient denies having any cough or sputum production. Clayton catheter was remove d yesterday but patient was straight cathetered 406 100 and Clayton was resumed. IV fluids will be changed to D5 half-normal saline at 100 mL per hour. Patient has been afebrile, heart rate 73, blood pressure 145/66, pulse ox 98% on 2 L nasal cannula. REVIEW OF SYSTEMS Constitutional: Positive for fever, positive for chills, no night sweats. No weight change. positive for weakness, fatigue or lethargy. No daytime sleepiness. HEENT: No headache. No blurred vision or double vision, no loss of vision. No loss of Hearing, no ringing in the ears, no dizziness. No nasal drainage or congestion. No epistaxis. No sore throat. Lungs: positive for shortness of breath, positive for occasional cough, no sputum production. No wheezing. Cardiovascular: No chest pain, no lower extremity edema. No palpitations. No paroxysmal nocturnal dyspnea. No orthopnea. No lightheadedness or dizziness. No syncopal episodes. Abdominal: No abdominal pain. No nausea, vomiting. No diarrhea. No constipation. No bloody or tarry stools. Genitourinary: No dysuria, increased frequency, urgency. Reported urinary retention. Musculoskeletal: No myalgias. Positive for muscle weakness, positive for gait dysfunction, continues with restlessness and spasticity of the neck and upper torso. Integumentary: No wounds, no lesions. No rash or pruritus. No unusual bruising. No change in hair or nails. Neurologic: Continues to have encephalopathy , pressured speech, restlessness, spasticity of the upper torso and the neck. Psychiatric: Psychosis resolved. Endocrine: No abnormal blood sugars. No weight change. No excessive sweating or thirst. No cold intolerance. PHYSICAL EXAMINATION Gen: This is a 69-year-old male patient resting in bed in no respiratory distress. HEENT: Head is atraumatic, normocephalic. Pupils round. Sclerae is anicteric. 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 Oral mucous membranes are dry, there is dopamine reservoirs bilaterally. NECK: Supple. No JVD. No lymphadenopathy. No thyromegaly. LUNGS: there is decreased breath sounds at the bases, few rhonchi, minimal expiratory wheezes, no chest wall tenderness, no intercostal retractions, bilateral batteries in upper chest. HEART: First heart sound is depressed, second heart sound is normal, there is no gallop or murmur, no rubs or heaves. ABDOMEN: Soft. Bowel sounds are present. No masses. No tenderness. PEG tube site with no signs of drainage, erythema. Clayton catheter draining clear radha urine. EXTREMITIES: No pedal edema. No calf tenderness. dorsalis pedis +2 bilaterally, bilateral hammertoes. NEUROLOGICAL: Patient is awake, alert and oriented to person and able to follow simple commands no aphasia. Masklike face. 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 ASSESSMENT AND PLAN 1. Aggressive behavior with acute psychosis secondary to amantadine recently increased dosing. Amantadine on hold. Consult with neurology appreciated. Hold Duopa pump today and resume sinemet. Neurology is following. 2. Parkinson's disease on dopamine pump. Hold pump. Hold amantadine. Resume carbidopa levodopa. 3. Moderate protein calorie malnutrition and risk for aspiration, chronic PEG tube. Continue tube feeding at night. 4. Hypothyroidism. Continue levothyroxine 125 g daily. 5. Vitamin D deficiency, stable. 6. Macrocytosis. Vitamin B12 392 and folate greater than 24. 7. GI prophylaxis. Pepcid 20 mg daily per PEG tube. 8. DVT prophylaxis. continue heparin 5000 units subcutaneously every 12 hours. 9. COVID-19 testing negative. Patient has been hospitalized during a pandemic. 10. Right perihilar infiltrate cirrhosis of atelectasis versus aspiration pneumonia start the patient on Zosyn 3.375 g IV piggyback every 8 hours, continue to monitor the patient very closely, nebulized treatment in the form of DuoNeb 3 mg nebulization 4 times every day, oxygen support as needed. Consult pulmonary medicine appreciated. 11. Hypernatremia, resolved. Change IVF to d5 0.45 NS at 100 cc per hour. 12. Cellulitis of the left forearm secondary to previous IV site. Continue Zosyn and add Bactroban to be applied locally. DISCHARGE PLAN Most likely return home on . PT and OT consults. Impression and plan of care have been directed as dictated by the signing physician. Sofía Kulkarni nurse practitioner acting as scribe for signing physician. Objective - Vital Signs Vital signs: Vital Signs Temp 98.1 F 08/11/20 07:55 Pulse 88 08/11/20 08:22 Resp 20 08/11/20 07:55 BP 145/66 08/11/20 07:55 Pulse Ox 98 08/11/20 07:55 Intake & Output 08/10/20 08/11/20 08/11/20 18:59 06:59 18:59 Output Total 500 Balance -500 Weight 77.5 kg Output: Urine 500 Straight 500 Other: Voiding Method Indwelling Catheter External Catheter # Voids 2 - Labs CBC & Chem 7: 08/10/20 05:18 08/10/20 05:18 Labs: Abnormal Lab Results - Last 24 Hours (Table) 08/10/20 Range/Units 05:18 BUN/Creatinine Ratio 25.00 H (12.00-20.00) Ratio Glucose 118 H (70-110) mg/dL Calcium 7.8 L (8.7-10.3) mg/dL AST 62 H (14-35) U/L ALT 94 H (10-49) U/L Alkaline Phosphatase 127 H (41-126) U/L Total Protein 5.0 L (6.2-8.2) g/dL Albumin 3.20 L (3.80-4.90) g/dL Microbiology - Last 24 Hours (Table) 08/07/20 08:34 Blood Culture - Preliminary Blood No Growth after 72 hours 08/07/20 08:25 Blood Culture - Preliminary Blood No Growth after 72 hours
[2020-08-11] MEDS ORDERED: ACETAMINOPHEN TAB 325 MG TAB PO PRN (14:00)
[2020-08-11] MEDS ORDERED: diphenhydrAMINE 50 MG/ML 1 ML VIAL IVP STA ×2 (14:42→17:05)
[2020-08-11] MEDS ORDERED: LORazepam 2 MG/ML INJ IV STA ×2 (17:42→23:51)
[2020-08-11] MEDS: CARBIDOPA-LEVODOPA 10-100 MG 1 EACH TAB PO SCH ×2 (18:04→20:27)
[2020-08-11 23:15] LABS: Glucose,Whole Blood 137 mg/dL (75-99)
--- NOTE | 2020-08-12 00:15 | CT ---
EXAMINATION TYPE: CT brain wo con DATE OF EXAM: 08/12/2020 COMPARISON: 08/04/2020 HISTORY: ams CT DLP: 1139.4 mGycm Automated exposure control for dose reduction was used. Ventricles have normal size. There is no mass effect nor midline shift. There is no sign of intracran ial hemorrhage. There are bilateral electrodes in the thalamus. The skull base is intact. There is no rmal aeration of the mastoid sinuses. Calvarium is intact. IMPRESSION: No acute intracranial abnormality. No change compared to old exam.
[2020-08-12 00:17] LABS: Glucose,Whole Blood 125 mg/dL (75-99)
--- NOTE | 2020-08-12 03:18 | P.PN ---
Progress Note - Text Progress Note Date: 08/12/20 A team note Activated at 11:12 pm. Arrived at the scene shortly after. Reviewed the chart and discussed the case with RN. The patient was admitted to the hospital with altered mentation. The patient was noted by the RN to be rigid, bradypnic, and pale. SpO2 as reported by the RN was 55% during the episode. The RN attempted to arouse the patient at which time his breathing improved. Upon arrival at the scene, the patient was noted to be lethargic and slow to respond. RN noted that at baseline he was alert and oriented 3. Vitals upon arrival at the scene: BP 118/67, P 60, SpO2 97% on 2L NC, and T 98.8. General: Non-toxic, in no acute distress, appears stated age, normal weight HEENT: NC/AT, anicteric sclerae, moist conjunctiva, no lid-lag, PERRLA Cardiovascular: S1/S2 wnl, no murmurs, rubs, or gallops Lungs: Clear to auscultation, normal respiratory effort, no accessory muscle use Abdominal: Soft, non-tender, non-distended, no guarding, rebound, or rigidity Skin: Warm, dry Extremities: No edema or contractures Psychiatric: Lethargic, oriented to person and place, slow to respond Neuro: Moving all extremities, no focal deficits noted, no rigidity noted, myoclonic jerks noted throughout of all extremities The patient had a complicated hospital course with episodes of dyskinesis and dystonias. Discussed the case with the neurologist on-call Dr. Milian to noted that the patient could be having further exacerbation of his parkinson's with dystonic episodes in setting of his Duopa intrathecal pump. He recommended that the patient be transferred to a tertiary care facility, ideally one with a movement disorder Neurology service. He also recommended a transfer to the MICU in case the patient may not be transferred overnight. These recommendations were discussed in detail with the patient's Primary physician Dr Noyola via phone. Ativan prn was also ordered.
[2020-08-12 05:12] LABS: HCT 41.2 % (39.0-53.0); HGB 14.3 gm/dL (13.0-17.5); MCH 35.2 pg (25.0-35.0); MCHC 34.6 g/dL (31.0-37.0); MCV 101.5 fL (80.0-100.0); Mean Platelet Volume 9.5; Platelet Count 214 k/uL (150-450); RBC 4.06 m/uL (4.30-5.90); RDW 12.2 % (11.5-15.5); WBC 8.3 k/uL (3.8-10.6)
[2020-08-12 05:26] LABS: ALT 47 U/L (4-49); AST 47 U/L (17-59); African American GFR (CKD) >90 (>60 ml/min/1.73 sqM); Albumin 2.8 g/dL (3.5-5.0); Albumin/Globulin Ratio 1.2; Alkaline Phosphatase 112 U/L (38-126); Anion Gap 3 mmol/L; Blood Urea Nitrogen 19 mg/dL (9-20); Calcium 8.5 mg/dL (8.4-10.2); Carbon Dioxide 28 mmol/L (22-30); Chloride 109 mmol/L (98-107); Globulin 2.4 g/dL; Glucose 99 mg/dL (74-99); Magnesium 2.2 mg/dL (1.6-2.3); Non-African American GFR(CKD) >90 (>60 ml/min/1.73 sqM); Potassium 4.1 mmol/L (3.5-5.1); Sodium 140 mmol/L (137-145); Total Bilirubin 0.3 mg/dL (0.2-1.3); Total Protein 5.2 g/dL (6.3-8.2)
--- NOTE | 2020-08-12 06:08 | XR ---
EXAMINATION TYPE: XR chest 1V portable DATE OF EXAM: 08/12/2020 CLINICAL HISTORY: Difficulty breathing and fever progress study. TECHNIQUE: Single AP portable semiupright view of the chest is obtained. COMPARISON: Chest x-ray from 5 days earlier and older studies. FINDINGS: There is chronic parenchymal change bilaterally without suspicious new focal air space opa city, pleural effusion, or pneumothorax seen. New patchy left basilar linear atelectasis. The cardia c silhouette size is stable and mildly enlarged. The osseous structures are intact. Bilateral overl jey neck or intracranial stimulator devices are partially imaged. Elevated right hemidiaphragm redem onstrated. IMPRESSION: Chronic changes and cardiomegaly with new patchy left basilar opacity favoring atelectat ic change.
[2020-08-12] MEDS: HEPARIN SODIUM,PORCINE/PF 5,000 UNIT/0.5 ML SYRINGE SQ SCH ×2 (06:29→17:05)
[2020-08-12] MEDS: DEXTROSE 5%-0.45% NACL 1,000 ML IV SCH ×2 (06:30→14:14)
[2020-08-12] MEDS: IPRATROPIUM-ALBUTEROL 3 ML NEB INHALATION SCH ×4 (08:32→19:52)
--- NOTE | 2020-08-12 09:48 | P.PN ---
Subjective Progress Note Date: 08/11/20 08/11/2020: Patient was seen at around 1:30 PM. Nurse reported that patient was fine in the morning. At around 12:50 PM patient suddenly developed severe dystonic movements of his body. He had received only one dose of Sinemet 25/100 at 9 AM. The second dose was received after the dystonic symptoms already had started. I came in to see the patient, and his was also present. He would open his mouth real wide to the point that almost appears like could dislocate his jaw. He would tense his arms and legs in a dystonic posture. He would then moan, groan, breathes real hard. Sometimes would have breath-holding spells. Patient was given Benadryl 25 mg IV and patient 20 minutes later was seen to sleep and dystonic movements were resolved. Apparently at around 4 PM he woke up again and started having similar dystonic movements again. Patient would open his mouth real wide, and sometimes would stretch his lips sideways bilaterally to the limits and would hold it there. He was given another Benadryl of 25 mg and it relaxed him only for short time. I spoke to patient's on the phone, and we decided to place him back on low-dose Sinemet 10/100 half tablet 4 times a day, amantadine 100 mg twice a day. This was the regimen that patient was doing well before amantadine was switched to Gocovri. Apparently these 2 medications were given at around 8:30 PM. He went back to sleep. I was called again by the nurse at around 11:30 PM, and patient was again having similar dystonic spells, severe breath-holding spells to the point of almost getting into respiratory arrest. Dr. Gustavo Minor was called, and I spoke to him. Computed tomography scan of the head was recommended, transferred to ICU and perhaps transfer to a tertiary care center where there is movement disorder specialist available. 08/10/2020: Patient was seen at around 1:15 PM. Patient's has started on Duopa pump since 9 AM. Patient received 13.0 mg bolus dose followed by 1.7 mg rate. Patient has immediately developed severe dyskinesias, dystonia, very uncomfortable. Patient's has decreased the rate down to 1.5 and then 1.3 at 12:45 PM, but patient continues to be very dyskinetic. It was decided to further decrease down the dose to 1.0 mg rate. We will reassess at 3:30 PM. Patient is off Sinemet. 08/09/2020: Patient's was also present today. Patient has history of Parkinson's disease for last 17 years. He follows up with Dr. Stallworth.. Patient has bilateral DBS. Per patient's , he was doing relatively well on Sinemet 10/100 half tablet every 2 hours. He also has Duopa pump that was placed couple years ago. Patient started having freezing and couldn't swallow therefore his neurologist started patient on Gocovri 68.5 mg and he was doing well. He also did well when the dose was increased to 137 mg. When the dose was increased to 274 mg, on 08/05/2020, that is when patient started having active hallucinations, altered mental status, staring spells. Prior he was able to walk around the house with his walker. Patient has been started on Sinemet 25/100, 4 times a day by Dr. Manish Tolentino. Patient's states that when he takes Sinemet, he gets some dyskinesias but after one hour at calms down and he is fine. She is planning to bring the pump tomorrow. 08/08/2020: Patient was seen for a follow-up. Patient initially seen by Dr. Manish Tolentino. Please refer to his note for details. Patient has history of Parkinson's disease for last 17 years, also had undergone placement of bilateral DBS, and PEG placement also on Duopa intrathecal pump. Patient has presented with dystonia and dyskinesia. Patient was amantadine, which was discontinued as it was producing progressive dystonic behavior. Patient was given Benadryl and Cogentin. Objective - Vital Signs Vital signs: Vital Signs Temp 99.7 F H 08/11/20 14:00 Pulse 72 08/11/20 14:00 Resp 20 08/11/20 14:00 BP 206/83 08/11/20 14:02 Pulse Ox 97 08/11/20 14:00 Intake & Output 08/11/20 08/11/20 08/12/20 06:59 18:59 06:59 Weight 77.5 kg 77.5 kg Other: Voiding Method External Catheter Indwelling Catheter - Exam On examination patient is an elderly male, appears to be in severe distress because of constant dystonic movements of the body. Patient was having severe jaw opening dystonia, and other times would develop almost Ricus Sardonicus type facial posture. Apparently when his mouth was really wide open vertically, patient could be directed to relax his mouth and then he would withdraw his face horizontally sideways to the limits. He would moan and groan. Patient's arm would also become dystonic. I again could be directed to relax his body, but then would again tense it. Patient would sweat profusely with these dystonic movements. Left pupil is round and reacting. 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 No obvious focality noted. - Labs CBC & Chem 7: 08/12/20 04:28 08/12/20 04:28 Labs: Microbiology - Last 24 Hours (Table) 08/07/20 08:34 Blood Culture - Preliminary Blood No Growth after 96 hours 08/07/20 08:25 Blood Culture - Preliminary Blood No Growth after 96 hours Assessment and Plan Assessment: Acute dystonia-medication induced (probably due to Duopa and Gocovri, which is extended release amantadine) Altered mental status due to metabolic encephalopathy (elevated LFT, mild h ypernatremia (likely dehydration/lack of oral intake). Rule out underlying infection especially with low grade fever. Low grade fever due to Atelectasis vs aspiration pneumonia Advanced Parkinson's disease (for the past 17 years) s/p deep brain stimulation and on Duopa and amantadine (Discontinued) Mild elevated liver function test (LFT: AST to ALT 94/127) Mild hypernatremia Hypothyroidism PEG tube in the last 4-5 years Plan: Patient had developed severe dyskinesias from Duopa which has been discontinued. Now patient has developed recurrence of severe dystonia. Sinemet has been changed from 25/100 to 10/100, half tablet every 4 hours. It was felt patient could be withdrawing from amantadine, therefore amantadine 100 mg twice a day was resumed, which had worked previously well. Concerned about neuroleptic malignant syndrome. Computed tomography scan of the head will be performed. Patient to be transferred to ICU. Consider transfer to a tertiary care center where his DBS could be interrogated and adjusted to control these dystonia. I saw the patient multiple times today, spoke to the patient's multiple times during the entire day. Vitamin B12: 392 (normal), patient has received Vitamin B12 1000mcg IM once and then 1000mg daily. Folate >24 (normal). Avoid any opiate/narcotic or sedative that would affect the patient's mentation. Time with Patient: Greater than 30
[2020-08-12] MEDS: CYANOCOBALAMIN 500 MCG TAB PO SCH (10:18)
[2020-08-12] MEDS: PANTOPRAZOLE 40 MG/10 ML VIAL IVP SCH (10:18)
[2020-08-12] MEDS: CARBIDOPA-LEVODOPA 25-100 MG 1 EACH TAB PO SCH ×4 (10:18→21:13)
[2020-08-12] MEDS: FAMOTIDINE 20 MG TAB PEG/G-TUBE SCH (10:18)
[2020-08-12] MEDS: PIPERACILLIN-TAZOBACTAM 3.375 GM in SODIUM CHLORIDE 0.9% 100 ML IVPB SCH ×4 (10:18→17:06)
[2020-08-12] MEDS: CARBIDOPA-LEVODOPA 10-100 MG 1 EACH TAB PO SCH ×4 (10:33→21:14)
[2020-08-12] MEDS: MUPIROCIN 2% OINT 22 GM TUBE TOPICAL SCH ×3 (10:34→21:14)
[2020-08-12 10:49] VITALS: BMI 21.9
[2020-08-12] MEDS: LEVOTHYROXINE 125 MCG TAB PO SCH ×2 (10:51→10:52)
--- NOTE | 2020-08-12 15:04 | P.PN ---
Subjective Progress Note Date: 08/12/20 HISTORY OF PRESENT ILLNESS This is a 69-year-old male patient of mine with past medical history of Parkinson's disease status post intrathecal dopamine pump, hypothyroidism, vitamin D deficiency, detached right retina. His neurologist is Dr. Stallworth and he had recent family increased amantadine from 68.5 mg 237 mg one and half weeks ago and then increased to 174 mg on Saturday. Since the dose was increased, patient has had increasing weakness with falls, falling backward. Patient was brought into [facility] emergency center for evaluation. He was afebrile, heart rate 97, blood pressure 145/81, pulse ox 94% on room air. Last evening, patient received Zyprexa, Geodon and during evaluation today, aggressive behavior was improved. Patient has been seen by neurology with recommendations to continue carbidopa/levodopa via PEG tube, hold amantadine, consult PT and OT. Vitamin B12 and folate levels were ordered. Dr. Tolentino recommended Nuplazid (primavanserin) antipsychotic but not available in the hospital but can't be prescribed as an outpatient. Otherwise Seroquel 25 mg at bedtime and titrate up if needed. Recommendations also follow-up with his neurologist in 1-2 weeks after discharge. Laboratory studies: CBC was unremarkable. Electrolytes unremarkable. BUN 39 and creatinine 1.12. Blood sugar 114. SARS-CoV-2, RSV, and influenza not dete cted. CAT scan of the brain showed no acute intracranial hemorrhage, mass effect or midline shift. CAT scan of the cervical spine showed no acute fracture or dislocation. CAT scan mentions correlate for possible Covid pneumonia. Left hand x-ray shows no acute fracture or dislocation. Left tib-fib x-ray shows no acute fracture or dislocation. Chest x-ray reveals mild cardiomegaly and chronic changes without acute pulmonary process. 08/06: Patient sitting up in bed and is more awake and alert today he continues to be a bit confused, he did receive Geodon 20 mg IM yesterday, his was at bed side and she was questioning whether or not the patient to be transferred to [facility] where his neurologist is, however I told her we can start the Duo-Dopa here in the hospital during the day and she is in charge and that she would be taken off at night, and resume his feeding at nighttime, patient is able to use some water, patient already was seen in consultation by neurology we'll continue the current treatment plan, patient can be discharged home on Saturday with Nuplazid I will try to get some samples from the office. 08/07: Patient is sitting up in bed he continues to be restless he was seen earlier by neurology, he was started on Sinemet through the tube feeding he could not tolerate his Duodopa, this will continue to be off, he is off Gocovri , he had low-grade temperature, he appears to be tachypneic, his body is warm, he had occasional cough, appears to be a bit short of breath, a stat portable chest was done showed right perihilar atelectasis versus infiltrate he would be started on IV antibiotic in the form of Zosyn 3.375 g IV piggyback every 8 hours, continue IV fluid will increase the rate to 1 25 mL an hour, monitor the patient urine output, monitor the patient urine culture and blood culture as well. 08/08: The patient had Clayton catheter placed last evening for urinary retention. Sodium last evening at 10 PM was 149. Patient is awake and able to answer que stions but is very restless, sitter is at bedside. Patient is complaining of a sore throat but no complaints of significant pain. He does have phlegm in the back of his throat. He denies having a cough. Pulmonary medicine will be added. Temperature max was 99.4 axillary, heart rate 74, respiratory rate 26, blood pressure 105/54, pulse ox 95% on 2 L nasal cannula. Yesterday afternoon pulse ox was 89% on room air and he is currently 96% on 2 L nasal cannula. Repeat blood work is pending at the time of this dictation 8 AM. 08/09: Patient is seen today and his is at bedside. Patient is awake and alert. He does have jerking motion mostly on the right side. Patient did receive Sinemet. Discussed plan of care with the patient and his . Tomorrow morning patient will be resumed on his pump and she will bring it from home. Dr. Milian did make note about a decreased dose when resuming. We will plan to remove Clayton catheter tomorrow morning. IV fluids decreased to 75 mL per hour. Repeat blood work reveals WBC 10.6, hemoglobin 14.5, platelet count 170. I am 148, potassium 3.7, chloride 113, CO2 33,, BUN 47 creatinine 1.01. Blood sugar 136. Patient is continued on Zosyn for possible aspiration pneumonia. Plan for discharge is home on . 08/10: Patient has been afebrile, heart rate 66, blood pressure 136/78, pulse ox 97% on 2 L nasal cannula. WBC 8.7, hemoglobin 13.8, platelet count 173. Electrolytes and renal function are normal. Blood sugar 118. Calcium 7.8. Total bilirubin 0.3, AST 62, ALT 94, alkaline phosphatase 127. The cultures no growth at 72 hours. Patient started on Duopa pump today and Clayton catheter to be removed. Patient has been seen and followed by pulmonary medicine and subsequently signed off his case. Therapies have evaluated and recommend home with 24-hour care. Anticipate discharge home tomorrow. 08/11: Patient did not do well with Duopa pump with severe dyskinesias, dystonia and very uncomfortable. The dose was decreased but patient continued to have symptoms. Plan at this time is to hold pump and continue Sinemet 57854 milligrams 1 tablet 4 times daily. Neurology continues to follow May consider low-dose amantadine. Patient is noted to have a pustule and cellulitis of the left forearm secondary to previous IV site. Patient is on Zosyn already for aspiration pneumonia and will also be added Bactroban to be applied locally. Patient denies having any cough or sputum production. Clayton catheter was remove d yesterday but patient was straight cathetered 406 100 and Clayton was resumed. IV fluids will be changed to D5 half-normal saline at 100 mL per hour. Patient has been afebrile, heart rate 73, blood pressure 145/66, pulse ox 98% on 2 L nasal cannula. 08/12: Patient had episode of dystonia yesterday which was recorded by his . He received a dose of Benadryl and Ativan. A-Team called this morning at 2 AM. Patient was found by the nurse to be rigid, bradypnic and pale with pulse ox of 55%. He was lethargic and slow to respond. Dr. Milian was contacted and recommended transfer to tertiary care facility with movement disorder neurology service. Patient was transferred to the intensive care unit. Pulse ox is now 93-95% with 5 L high flow nasal cannula. shelter monitor is sinus rhythm with occasional PVC. Heart rate 81, respiratory rate 18, blood pressure 117/82. Temperature max was 99.7 axillary area to p.m. yesterday. Repeat blood work reveals WBC 8.3, hemoglobin 14.3, platelet count 214. Sodium 140, potassium 4.1, chloride 109, CO2 28, BUN 19 and creatinine 0.81. Blood sugars are running between 99 and 137. Total bilirubin 0.3, AST 47, ALT 47, alkaline phosphatase 112. Calcium 8.5. Magnesium 2.2. Blood cultures are showing no growth after 96 hours. CAT scan of the brain done last evening revealed no acute intracranial abnormality. No change. Chest x-ray reveals chronic changes and cardiomegaly with new patchy left basilar opacities favoring atelectatic change. is sitting up in a recliner and patient's is at bedside. Plan to continue close monitoring in the intensive care unit overnight. If REVIEW OF SYSTEMS Constitutional: Positive for fever, positive for chills, no night sweats. No weight change. positive for weakness, fatigue or lethargy. No daytime sleepiness. HEENT: No headache. No blurred vision or double vision, no loss of vision. No loss of Hearing, no ringing in the ears, no dizziness. No nasal drainage or congestion. No epistaxis. No sore throat. Lungs: positive for shortness of breath, positive for occasional cough, no sputum production. No wheezing. Cardiovascular: No chest pain, no lower extremity edema. No palpitations. No paroxysmal nocturnal dyspnea. No orthopnea. No lightheadedness or dizziness. No syncopal episodes. Abdominal: No abdominal pain. No nausea, vomiting. No diarrhea. No constipation. No bloody or tarry stools. Genitourinary: No dysuria, increased frequency, urgency. Reported urinary retention. Musculoskeletal: No myalgias. Positive for muscle weakness, positive for gait dysfunction, continues with restlessness and spasticity of the neck and upper torso. Integumentary: No wounds, no lesions. No rash or pruritus. No unusual bruising. No change in hair or nails. Neurologic: Continues to have encephalopathy , pressured speech, restlessness, spasticity of the upper torso and the neck. Psychiatric: Psychosis resolved. Endocrine: No abnormal blood sugars. No weight change. No excessive sweating or thirst. PHYSICAL EXAMINATION Gen: This is a 69-year-old male patient resting in bed in no respiratory distress. HEENT: Head is atraumatic, normocephalic. Pupils round. Sclerae is anicteric. 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 Oral mucous membranes are dry, there is dopamine reservoirs bilaterally. NECK: Supple. No JVD. No lymphadenopathy. No thyromegaly. LUNGS: there is decreased breath sounds at the bases, few rhonchi, minimal expiratory wheezes, no chest wall tenderness, no intercostal retractions, bilateral batteries in upper chest. HEART: First heart sound is depressed, second heart sound is normal, there is no gallop or murmur, no rubs or heaves. ABDOMEN: Soft. Bowel sounds are present. No masses. No tenderness. PEG tube site with no signs of drainage, erythema. Clayton catheter draining clear radha urine. EXTREMITIES: No pedal edema. No calf tenderness. dorsalis pedis +2 bilaterally, bilateral hammertoes. NEUROLOGICAL: Patient is awake, alert and oriented to person and able to follow simple commands no aphasia. Masklike face. Bilateral hand retort fireman strong and equal, significant spasticity in the neck and upper torso. ASSESSMENT AND PLAN 1. Aggressive behavior with acute psychosis secondary to amantadine recently increased dosing. Amantadine on hold. Consult with neurology appreciated. Hold Duopa pump today and resume sinemet. Neurology is following. 2. Parkinson's disease on dopamine pump. Hold pump. Hold amantadine. Resume carbidopa levodopa. 3. Episodes of acute dystonia. 4. Moderate protein calorie malnutrition and risk for aspiration, chronic PEG tube. Continue tube feeding at night. 5. Hypothyroidism. Continue levothyroxine 125 g daily. 6. Vitamin D deficiency, stable. 7. Macrocytosis. Vitamin B12 392 and folate greater than 24. 8. GI prophylaxis. Pepcid 20 mg daily per PEG tube. 9. DVT prophylaxis. continue heparin 5000 units subcutaneously every 12 hours. 10. COVID-19 testing negative. Patient has been hospitalized during a pandemic. 11. Right perihilar infiltrate cirrhosis of atelectasis versus aspiration pneumonia start the patient on Zosyn 3.375 g IV piggyback every 8 hours, continue to monitor the patient very closely, nebulized treatment in the form of DuoNeb 3 mg nebulization 4 times every day, oxygen support as needed. Consult pulmonary medicine appreciated. 12. Hypernatremia, resolved. 13. Cellulitis of the left forearm secondary to previous IV site, improving . Continue Zosyn and add Bactroban to be applied locally. DISCHARGE PLAN Home with [facility]. Continue PT and OT consults. Impression and plan of care have been directed as dictated by the signing physician. Sofía Kulkarni nurse practitioner acting as scribe for signing physician. Objective - Vital Signs Vital signs: Vital Signs Temp 97.6 F 08/12/20 04:00 Pulse 81 08/12/20 07:00 Resp 18 08/12/20 07:00 BP 117/82 08/12/20 07:00 Pulse Ox 93 L 08/12/20 07:00 Intake & Output 08/11/20 08/12/20 08/12/20 18:59 06:59 18:59 Intake Total 518 Output Total 565 Balance -47 Weight 77.5 kg 69.3 kg Intake: IV 200 Dextrose 5%-0.45% NaCl 1, 200 000 ml @ 100 mls/hr IV . Q10H [facility] Rx#:[id number] Tube Feeding 288 Other 30 Output: Urine 565 Other: Voiding Method Indwelling Catheter Indwelling Catheter # Bowel Movements 1 - Labs CBC & Chem 7: 08/12/20 04:28 08/12/20 04:28 Labs: Abnormal Lab Results - Last 24 Hours (Table) 08/11/20 08/12/20 08/12/20 Range/Units 23:14 00:15 04:28 RBC 4.06 L (4.30-5.90) m/uL MCV 101.5 H (80.0-100.0) fL MCH 35.2 H (25.0-35.0) pg Chloride (98-107) mmol/L POC Glucose (mg/dL) 137 H 125 H (75-99) mg/dL Total Protein (6.3-8.2) g/dL Albumin (3.5-5.0) g/dL 08/12/20 Range/Units 04:28 RBC (4.30-5.90) m/uL MCV (80.0-100.0) fL MCH (25.0-35.0) pg Chloride 109 H (98-107) mmol/L POC Glucose (mg/dL) (75-99) mg/dL Total Protein 5.2 L (6.3-8.2) g/dL Albumin 2.8 L (3.5-5.0) g/dL Microbiology - Last 24 Hours (Table) 08/07/20 08:34 Blood Culture - Preliminary Blood No Growth after 96 hours 08/07/20 08:25 Blood Culture - Preliminary Blood No Growth after 96 hours
--- NOTE | 2020-08-12 23:45 | P.PN ---
Subjective Progress Note Date: 08/12/20 08/12/2020: Patient was seen in the ICU. Patient is doing remarkably better. All dystonia has completely resolved. Patient was able to talk, communicate without any difficulty. Fully oriented. I saw patient two different times and each time he appeared comfortable. He had mild dyskinesias on the right side noted but nothing like the last 2 days. Patient's also arrived, and she agreed that patient was doing remarkably better. 08/11/2020: Patient was seen at around 1:30 PM. Nurse reported that patient was fine in the morning. At around 12:50 PM patient suddenly developed severe dystonic movements of his body. He had received only one dose of Sinemet 25/100 at 9 AM. The second dose was received after the dystonic symptoms already had started. I came in to see the patient, and his was also present. He would open his mouth real wide to the point that almost appears like could dislocate his jaw. He would tense his arms and legs in a dystonic posture. He would then moan, groan, breathes real hard. Sometimes would have breath-holding spells. Patient was given Benadryl 25 mg IV and patient 20 minutes later was seen to sleep and dystonic movements were resolved. Apparently at around 4 PM he woke up again and started having similar dystonic movements again. Patient would open his mouth real wide, and sometimes would stretch his lips sideways bilaterally to the limits and would hold it there. He was given another Benadryl of 25 mg and it relaxed him only for short time. I spoke to patient's on the phone, and we decided to place him back on low-dose Sinemet 10/100 half tablet 4 times a day, amantadine 100 mg twice a day. This was the regimen that patient was doing well before amantadine was switched to Gocovri. Apparently these 2 medications were given at around 8:30 PM. He went back to sleep. I was called again by the nurse at around 11:30 PM, and patient was again having similar dystonic spells, severe breath-holding spells to the point of almost getting into respiratory arrest. Dr. Gustavo Minor was called, and I spoke to him. Computed tomography scan of the head was recommended, transferred to ICU and perhaps transfer to a tertiary care center where there is movement disorder specialist available. 08/10/2020: Patient was seen at around 1:15 PM. Patient's has started on Duopa pump since 9 AM. Patient received 13.0 mg bolus dose followed by 1.7 mg rate. Patient has immediately developed severe dyskinesias, dystonia, very u ncomfortable. Patient's has decreased the rate down to 1.5 and then 1.3 at 12:45 PM, but patient continues to be very dyskinetic. It was decided to further decrease down the dose to 1.0 mg rate. We will reassess at 3:30 PM. Patient is off Sinemet. 08/09/2020: Patient's was also present today. Patient has history of Parkinson's disease for last 17 years. He follows up with Dr. Stallworth.. Patient has bilateral DBS. Per patient's , he was doing relatively well on Sinemet 10/100 half tablet every 2 hours. He also has Duopa pump that was placed couple years ago. Patient started having freezing and couldn't swallow therefore his neurologist started patient on Gocovri 68.5 mg and he was doing well. He also did well when the dose was increased to 137 mg. When the dose was increased to 274 mg, on 08/05/2020, that is when patient started having active hallucinations, altered mental status, staring spells. Prior he was able to walk around the house with his walker. Patient has been started on Sinemet 25/100, 4 times a day by Dr. Manish Tolentino. Patient's states that when he takes Sinemet, he gets some dyskinesias but after one hour at calms down and he is fine. She is planning to bring the pump tomorrow. 08/08/2020: Patient was seen for a follow-up. Patient initially seen by Dr. Manish Tolentino. Please refer to his note for details. Patient has history of Parkinson's disease for last 17 years, also had undergone placement of bilateral DBS, and PEG placement also on Duopa intrathecal pump. Patient has presented with dystonia and dyskinesia. Patient was amantadine, which was discontinued as it was producing progressive dystonic behavior. Patient was given Benadryl and Cogentin. Objective - Vital Signs Vital signs: Vital Signs Temp 97.5 F L 08/12/20 12:00 Pulse 74 08/12/20 15:00 Resp 14 08/12/20 15:00 BP 93/58 08/12/20 15:00 Pulse Ox 97 08/12/20 15:00 Intake & Output 08/11/20 08/12/20 08/12/20 18:59 06:59 18:59 Intake Total 518 1100 Output Total 565 700 Balance -47 400 Weight 77.5 kg 69.3 kg 69.3 kg Intake: IV 200 1000 Dextrose 5%-0.45% NaCl 1, 200 1000 000 ml @ 100 mls/hr IV . Q10H [facility] Rx#:[id number] Intake, IV Titration 100 Amount Piperacillin-Tazobactam 3 100 .375 gm In Sodium Chloride 0.9% 100 ml @ 25 mls/hr IVPB Q8HR [facility] Rx# :[id number] Tube Feeding 288 0 Other 30 Output: Urine 565 700 Other: Voiding Method Indwelling Catheter Indwelling Catheter Indwelling Catheter # Bowel Movements 1 - Exam On examination patient is an elderly male, patient is alert and awake fully oriented. Patient affect is improved. Patient does have intermittent mild dyskinesias on the right side. Patient did start transiently extending his mouth bilaterally dystonic way, but then it went away within a minute and he was fine. No further dystonias noted. The nurse also agreed. Muscle strength is normal. Tone is very mildly increased. - Labs CBC & Chem 7: 08/12/20 04:28 08/12/20 04:28 Labs: Abnormal Lab Results - Last 24 Hours (Table) 08/11/20 08/12/20 08/12/20 Range/Units 23:14 00:15 04:28 RBC 4.06 L (4.30-5.90) m/uL MCV 101.5 H (80.0-100.0) fL MCH 35.2 H (25.0-35.0) pg Chloride (98-107) mmol/L POC Glucose (mg/dL) 137 H 125 H (75-99) mg/dL Total Protein (6.3-8.2) g/dL Albumin (3.5-5.0) g/dL 08/12/20 Range/Units 04:28 RBC (4.30-5.90) m/uL MCV (80.0-100.0) fL MCH (25.0-35.0) pg Chloride 109 H (98-107) mmol/L POC Glucose (mg/dL) (75-99) mg/dL Total Protein 5.2 L (6.3-8.2) g/dL Albumin 2.8 L (3.5-5.0) g/dL Microbiology - Last 24 Hours (Table) 08/07/20 08:34 Blood Culture - Preliminary Blood No Growth after 120 hours 08/07/20 08:25 Blood Culture - Preliminary Blood No Growth after 120 hours Assessment and Plan Assessment: Acute dystonia-medication induced (probably due to Duopa and Gocovri, which is extended release amantadine). Patient also apparently received a second dose of Moderna vaccine earlier on the same day that his neurological symptoms got worse, and was admitted later in the evening on 08/04/2020. Uncertain if it was neurological reaction to the vaccination. Altered mental status due to metabolic encephalopathy (elevated LFT, mild hypernatremia, likely dehydration/lack of oral intake). Rule out underlying infection especially with low grade fever. Advanced Parkinson's disease (for the past 17 years) s/p deep brain stimulation and on Duopa (discontinued) and amantadine (Discontinued, but then resumed) Mild elevated liver function test, now normal. Mild hypernatremia, resolved Hypothyroidism PEG tube in the last 4-5 years Plan: Patient is doing much better today. No further dystonias are noted. Dyskinesias also improved. Patient apparently is on Sinemet 25/100 one tablet 4 times a day and Sinemet 10/100, half tablet 4 times a day as well. Also on amantadine 100 mg twice a day. As he is doing well on current dose of Sinemet, we will not change it. Patient has developed severe dyskinesias from Duopa which has been discontinued. No evidence of NMS with normal temperature. Computed tomography scan of the head 08/12/2020 was normal. There are bilateral electrodes in the thalamus. PT and OT. Possible discharge soon, when cleared by PT and OT. Patient to follow up with his neurologist. Patient has bilateral DBS performed in 2011. He states the battery of the left DBS is , which may be the reason that his dyskinesias on the right side is worse. Vitamin B12: 392 (normal), patient has received Vitamin B12 1000mcg IM once and then 1000mg daily. Folate >24 (normal). Avoid any opiate/narcotic or sedative that would affect the patient's mentation. Dr. Lind will cover neurology service over the weekend.
[2020-08-13] MEDS: HEPARIN SODIUM,PORCINE/PF 5,000 UNIT/0.5 ML SYRINGE SQ SCH ×4 (00:12→23:31)
[2020-08-13] MEDS: PIPERACILLIN-TAZOBACTAM 3.375 GM in SODIUM CHLORIDE 0.9% 100 ML IVPB SCH ×4 (00:12→23:38)
[2020-08-13 04:42] LABS: Basophils # (A) 0.1 k/uL (0-0.2); Basophils % (A) 1 %; Eosinophils # (A) 0.2 k/uL (0-0.7); Eosinophils % (A) 2 %; HCT 38.7 % (39.0-53.0); HGB 13.1 gm/dL (13.0-17.5); Lymphocytes % (A) 13 %; MCH 34.4 pg (25.0-35.0); MCHC 33.7 g/dL (31.0-37.0); MCV 102.1 fL (80.0-100.0); Macrocytosis Slight; Mean Platelet Volume 9.5; Monocytes # (A) 0.5 k/uL (0-1.0); Monocytes % (A) 7 %; Neutrophils # (A) 5.9 k/uL (1.3-7.7); Neutrophils % (A) 76 %; Platelet Count 211 k/uL (150-450); RBC 3.79 m/uL (4.30-5.90); RDW 12.3 % (11.5-15.5); WBC 7.8 k/uL (3.8-10.6)
[2020-08-13 04:53] LABS: African American GFR (CKD) >90 (>60 ml/min/1.73 sqM); Anion Gap 5 mmol/L; Blood Urea Nitrogen 16 mg/dL (9-20); Carbon Dioxide 26 mmol/L (22-30); Chloride 110 mmol/L (98-107); Glucose 111 mg/dL (74-99); Non-African American GFR(CKD) 88 (>60 ml/min/1.73 sqM); Sodium 141 mmol/L (137-145)
[2020-08-13] MEDS: IPRATROPIUM-ALBUTEROL 3 ML NEB INHALATION SCH ×4 (08:09→19:08)
[2020-08-13] MEDS: PANTOPRAZOLE 40 MG/10 ML VIAL IVP SCH (09:03)
[2020-08-13] MEDS: FAMOTIDINE 20 MG TAB PEG/G-TUBE SCH (09:04)
[2020-08-13] MEDS: CARBIDOPA-LEVODOPA 25-100 MG 1 EACH TAB PO SCH ×4 (09:04→20:45)
[2020-08-13] MEDS: CYANOCOBALAMIN 500 MCG TAB PO SCH (09:04)
[2020-08-13] MEDS: CARBIDOPA-LEVODOPA 10-100 MG 1 EACH TAB PO SCH ×4 (09:04→20:45)
[2020-08-13] MEDS: DEXTROSE 5%-0.45% NACL 1,000 ML IV SCH ×3 (09:05→22:41)
[2020-08-13] MEDS: MUPIROCIN 2% OINT 22 GM TUBE TOPICAL SCH ×3 (09:05→21:12)
--- NOTE | 2020-08-13 19:01 | P.PN ---
Subjective Progress Note Date: 08/13/20 The patient is a 69-year-old male who is seen in neurologic follow-up on August 13, 2020, via teleneurology. The patient reports that he is feeling somewhat better today. He is no longer experiencing the dystonic and dyskinetic movements. He does report "I have not walked yet". The patient does report having a neurologist. He has not seen this neurologist in a while. The patient's chart has been reviewed. I did receive signout from Dr. Mcmillan, reported events regarding this hospitalization. Objective - Vital Signs Vital signs: Vital Signs Temp 98.2 F 08/13/20 16:05 Pulse 76 08/13/20 16:05 Resp 20 08/13/20 16:05 BP 128/59 08/13/20 16:05 Pulse Ox 97 08/13/20 16:05 Intake & Output 08/12/20 08/13/20 08/13/20 18:59 06:59 18:59 Intake Total 1500 2250 1220 Output Total 403 907 5740 Balance 665 1350 -175 Weight 69.3 kg 75.5 kg Intake: IV 1300 1200 900 Dextrose 5%-0.45% NaCl 1, 1300 1200 900 000 ml @ 100 mls/hr IV . Q10H [facility] Rx#:[id number] Intake, IV Titration 200 200 Amount Piperacillin-Tazobactam 3 200 200 .375 gm In Sodium Chloride 0.9% 100 ml @ 25 mls/hr IVPB Q8HR [facility] Rx# :[id number] Tube Feeding 0 960 Other 90 120 Output: Urine 888 717 6666 Other: Voiding Method Indwelling Catheter Indwelling Catheter Indwelling Catheter # Bowel Movements 1 1 - Exam Gen.: The patient is reclining in the bed. He is well-nourished and in no acute distress. HEENT: Head is atraumatic, normocephalic. Fundus not visualized. There is no scleral icterus. Neurological examination Mental status: The patient is awake, alert and oriented 3. His speech is clear. There is no hypophonia. The patient does have a mask like face. Blink rate is diminished. Motor: There is no bradykinesia. There is no cogwheel rigidity. Tone is normal. There are no dystonic or dyskinetic movements. - Labs CBC & Chem 7: 08/13/20 03:57 08/13/20 03:57 Labs: Abnormal Lab Results - Last 24 Hours (Table) 08/13/20 08/13/20 Range/Units 03:57 03:57 RBC 3.79 L (4.30-5.90) m/uL Hct 38.7 L (39.0-53.0) % MCV 102.1 H (80.0-100.0) fL Chloride 110 H (98-107) mmol/L Glucose 111 H (74-99) mg/dL Calcium 8.0 L (8.4-10.2) mg/dL Microbiology - Last 24 Hours (Table) 08/07/20 08:34 Blood Culture - Final Blood No Growth after 144 hours 08/07/20 08:25 Blood Culture - Final Blood No Growth after 144 hours Assessment and Plan Assessment: 1. Advanced Parkinson's disease currently without evidence of excessive dopaminergic medications on board Plan: 1. Continue current medication regime 2. Patient is advised to call his neurologist and make a follow-up appointment, to be seen soon Time with Patient: Less than 30 (spent 20 minutes with patient via teleneurology)
[2020-08-14] MEDS: LEVOTHYROXINE 125 MCG TAB PO SCH (06:09)
[2020-08-14] MEDS: PANTOPRAZOLE 40 MG/10 ML VIAL IVP SCH (08:57)
[2020-08-14] MEDS: HEPARIN SODIUM,PORCINE/PF 5,000 UNIT/0.5 ML SYRINGE SQ SCH ×2 (08:57→16:03)
[2020-08-14] MEDS: CARBIDOPA-LEVODOPA 10-100 MG 1 EACH TAB PO SCH ×4 (08:57→21:37)
[2020-08-14] MEDS: FAMOTIDINE 20 MG TAB PEG/G-TUBE SCH (08:57)
[2020-08-14] MEDS: CYANOCOBALAMIN 500 MCG TAB PO SCH (08:57)
[2020-08-14] MEDS: PIPERACILLIN-TAZOBACTAM 3.375 GM in SODIUM CHLORIDE 0.9% 100 ML IVPB SCH (08:58)
[2020-08-14] MEDS: MUPIROCIN 2% OINT 22 GM TUBE TOPICAL SCH ×3 (08:58→21:38)
[2020-08-14] MEDS: IPRATROPIUM-ALBUTEROL 3 ML NEB INHALATION SCH ×4 (09:20→21:16)
[2020-08-14] MEDS: DEXTROSE 5%-0.45% NACL 1,000 ML IV SCH ×3 (09:32→21:38)
[2020-08-14] MEDS: CARBIDOPA-LEVODOPA 25-100 MG 1 EACH TAB PO SCH ×4 (09:32→21:38)
--- NOTE | 2020-08-14 11:29 | P.PN ---
Subjective Progress Note Date: 08/13/20 HISTORY OF PRESENT ILLNESS This is a 69-year-old male patient of mine with past medical history of Parkinson's disease status post intrathecal dopamine pump, hypothyroidism, vitamin D deficiency, detached right retina. His neurologist is Dr. Stallworth and he had recent family increased amantadine from 68.5 mg 237 mg one and half weeks ago and then increased to 174 mg on Saturday. Since the dose was increased, patient has had increasing weakness with falls, falling backward. Patient was brought into [facility] emergency center for evaluation. He was afebrile, heart rate 97, blood pressure 145/81, pulse ox 94% on room air. Last evening, patient received Zyprexa, Geodon and during evaluation today, aggressive behavior was improved. Patient has been seen by neurology with recommendations to continue carbidopa/levodopa via PEG tube, hold amantadine, consult PT and OT. Vitamin B12 and folate levels were ordered. Dr. Tolentino recommended Nuplazid (primavanserin) antipsychotic but not available in the hospital but can't be prescribed as an outpatient. Otherwise Seroquel 25 mg at bedtime and titrate up if needed. Recommendations also follow-up with his neurologist in 1-2 weeks after discharge. Laboratory studies: CBC was unremarkable. Electrolytes unremarkable. BUN 39 and creatinine 1.12. Blood sugar 114. SARS-CoV-2, RSV, and influenza not dete cted. CAT scan of the brain showed no acute intracranial hemorrhage, mass effect or midline shift. CAT scan of the cervical spine showed no acute fracture or dislocation. CAT scan mentions correlate for possible Covid pneumonia. Left hand x-ray shows no acute fracture or dislocation. Left tib-fib x-ray shows no acute fracture or dislocation. Chest x-ray reveals mild cardiomegaly and chronic changes without acute pulmonary process. 08/06: Patient sitting up in bed and is more awake and alert today he continues to be a bit confused, he did receive Geodon 20 mg IM yesterday, his was at bed side and she was questioning whether or not the patient to be transferred to [facility] where his neurologist is, however I told her we can start the Duo-Dopa here in the hospital during the day and she is in charge and that she would be taken off at night, and resume his feeding at nighttime, patient is able to use some water, patient already was seen in consultation by neurology we'll continue the current treatment plan, patient can be discharged home on Saturday with Nuplazid I will try to get some samples from the office. 08/07: Patient is sitting up in bed he continues to be restless he was seen earlier by neurology, he was started on Sinemet through the tube feeding he could not tolerate his Duodopa, this will continue to be off, he is off Gocovri , he had low-grade temperature, he appears to be tachypneic, his body is warm, he had occasional cough, appears to be a bit short of breath, a stat portable chest was done showed right perihilar atelectasis versus infiltrate he would be started on IV antibiotic in the form of Zosyn 3.375 g IV piggyback every 8 hours, continue IV fluid will increase the rate to 1 25 mL an hour, monitor the patient urine output, monitor the patient urine culture and blood culture as well. 08/08: The patient had Clayton catheter placed last evening for urinary retention. Sodium last evening at 10 PM was 149. Patient is awake and able to answer que stions but is very restless, sitter is at bedside. Patient is complaining of a sore throat but no complaints of significant pain. He does have phlegm in the back of his throat. He denies having a cough. Pulmonary medicine will be added. Temperature max was 99.4 axillary, heart rate 74, respiratory rate 26, blood pressure 105/54, pulse ox 95% on 2 L nasal cannula. Yesterday afternoon pulse ox was 89% on room air and he is currently 96% on 2 L nasal cannula. Repeat blood work is pending at the time of this dictation 8 AM. 08/09: Patient is seen today and his is at bedside. Patient is awake and alert. He does have jerking motion mostly on the right side. Patient did receive Sinemet. Discussed plan of care with the patient and his . Tomorrow morning patient will be resumed on his pump and she will bring it from home. Dr. Milian did make note about a decreased dose when resuming. We will plan to remove Clayton catheter tomorrow morning. IV fluids decreased to 75 mL per hour. Repeat blood work reveals WBC 10.6, hemoglobin 14.5, platelet count 170. I am 148, potassium 3.7, chloride 113, CO2 33,, BUN 47 creatinine 1.01. Blood sugar 136. Patient is continued on Zosyn for possible aspiration pneumonia. Plan for discharge is home on . 08/10: Patient has been afebrile, heart rate 66, blood pressure 136/78, pulse ox 97% on 2 L nasal cannula. WBC 8.7, hemoglobin 13.8, platelet count 173. Electrolytes and renal function are normal. Blood sugar 118. Calcium 7.8. Total bilirubin 0.3, AST 62, ALT 94, alkaline phosphatase 127. The cultures no growth at 72 hours. Patient started on Duopa pump today and Clayton catheter to be removed. Patient has been seen and followed by pulmonary medicine and subsequently signed off his case. Therapies have evaluated and recommend home with 24-hour care. Anticipate discharge home tomorrow. 08/11: Patient did not do well with Duopa pump with severe dyskinesias, dystonia and very uncomfortable. The dose was decreased but patient continued to have symptoms. Plan at this time is to hold pump and continue Sinemet 81162 milligrams 1 tablet 4 times daily. Neurology continues to follow May consider low-dose amantadine. Patient is noted to have a pustule and cellulitis of the left forearm secondary to previous IV site. Patient is on Zosyn already for aspiration pneumonia and will also be added Bactroban to be applied locally. Patient denies having any cough or sputum production. Clayton catheter was remove d yesterday but patient was straight cathetered 406 100 and Clayton was resumed. IV fluids will be changed to D5 half-normal saline at 100 mL per hour. Patient has been afebrile, heart rate 73, blood pressure 145/66, pulse ox 98% on 2 L nasal cannula. 08/12: Patient had episode of dystonia yesterday which was recorded by his . He received a dose of Benadryl and Ativan. A-Team called this morning at 2 AM. Patient was found by the nurse to be rigid, bradypnic and pale with pulse ox of 55%. He was lethargic and slow to respond. Dr. Milian was contacted and recommended transfer to tertiary care facility with movement disorder neurology service. Patient was transferred to the intensive care unit. Pulse ox is now 93-95% with 5 L high flow nasal cannula. 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 Heart rate 81, respiratory rate 18, blood pressure 117/82. Temperature max was 99.7 axillary area to p.m. yesterday. Repeat blood work reveals WBC 8.3, hemoglobin 14.3, platelet count 214. Sodium 140, potassium 4.1, chloride 109, CO2 28, BUN 19 and creatinine 0.81. Blood sugars are running between 99 and 137. Total bilirubin 0.3, AST 47, ALT 47, alkaline phosphatase 112. Calcium 8.5. Magnesium 2.2. Blood cultures are showing no growth after 96 hours. CAT scan of the brain done last evening revealed no acute intracranial abnormality. No change. Chest x-ray reveals chronic changes and cardiomegaly with new patchy left basilar opacities favoring atelectatic change. is sitting up in a recliner and patient's is at bedside. Plan to continue close monitoring in the intensive care unit overnight. 08/13: Patient is sitting up in the chair in no apparent distress, he continues to be somewhat restless due to his Parkinson, is doing well overnight at the intensive care unit, we'll trend distress for the patient to medical floor with telemetry, he would stay in the hospital over the weekend, and we'll discharge him home with a Clayton catheter on Saturday morning, he is to continue Flomax 0.4 mg orally once every day, he is to continue with Sinemet as well as amantadine the way it was ordered by the neurologist, hold off the Duopa pump for now, and follow up with Dr. Dumont as an outpatient. REVIEW OF SYSTEMS Constitutional: Positive for fever, positive for chills, no night sweats. No weight change. positive for weakness, fatigue or lethargy. No daytime sleepiness. HEENT: No headache. No blurred vision or double vision, no loss of vision. No loss of Hearing, no ringing in the ears, no dizziness. No nasal drainage or congestion. No epistaxis. No sore throat. Lungs: positive for shortness of breath, positive for occasional cough, no sputum production. No wheezing. Cardiovascular: No chest pain, no lower extremity edema. No palpitations. No paroxysmal nocturnal dyspnea. No orthopnea. No lightheadedness or dizziness. No syncopal episodes. Abdominal: No abdominal pain. No nausea, vomiting. No diarrhea. No constipation. No bloody or tarry stools. Genitourinary: No dysuria, increased frequency, urgency. No urinary retention. Musculoskeletal: No myalgias. Positive for muscle weakness, positive for gait dysfunction, continues with restlessness and spasticity of the neck and upper torso. Integumentary: No wounds, no lesions. No rash or pruritus. No unusual bruising. No change in hair or nails. Neurologic: Continues to have encephalopathy , pressured speech, restlessness, spasticity of the upper torso and the neck. Psychiatric: patient does appear to have some psychosis that appears to be better. Endocrine: No abnormal blood sugars. No weight change. No excessive sweating or thirst. No cold intolerance. PHYSICAL EXAMINATION Gen: This is a 69-year-old male patient resting in bed in mild respiratory distress. HEENT: Head is atraumatic, normocephalic. Pupils round. Sclerae is anicteric. 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 Oral mucous membranes are dry, there is dopamine reservoirs bilaterally. NECK: Supple. No JVD. No lymphadenopathy. No thyromegaly. LUNGS: there is decreased breath sounds at the bases, few rhonchi, minimal expiratory wheezes, no chest wall tenderness, no intercostal retractions, b ilateral batteries in upper chest. HEART: First heart sound is depressed, second heart sound is normal, there is no gallop or murmur, no rubs or heaves. ABDOMEN: Soft. Bowel sounds are present. No masses. No tenderness. PEG tube site with no signs of drainage, erythema. EXTREMITIES: No pedal edema. No calf tenderness. dorsalis pedis +2 bilaterally, bilateral hammertoes. NEUROLOGICAL: Patient is awake, alert and oriented to person and able to follow simple commands no aphasia. Masklike face. 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 ASSESSMENT AND PLAN 1. Aggressive behavior with acute psychosis secondary to amantadine recently increased dosing. Patient was taken off his Duopa pump, continue Sinemet 25/100 one tablet 4 times every day along with 10/100 half a full 4 times every day, continue amantadine 100 mg per PEG tube twice every day, follow-up with Dr. Dumont as an outpatient. 2. Parkinson's disease on dopamine pump. This was taken off the patient is to be maintained on Sinemet 25/100 as well as 10/104 times every day along with amantadine 100 mg orally twice every day. 3. Moderate protein calorie malnutrition and risk for aspiration, chronic PEG tube.continue to feeding at night. 4. Hypothyroidism. Continue levothyroxine 125 g daily. 5. Vitamin D deficiency, stable. 6. Macrocytosis. Vitamin B12 and folate levels ordered. 7. GI prophylaxis. Pepcid 20 mg daily per PEG tube. 8. DVT prophylaxis. continue heparin 5000 units subcutaneously every 12 hours. 9. COVID-19 testing negative. Patient has been hospitalized during a pandemic. 10. Right perihilar infiltrate cirrhosis of atelectasis versus aspiration pneumonia start the patient on Zosyn 3.375 g IV piggyback every 8 hours, continue to monitor the patient very closely, nebulized treatment in the form of DuoNeb 3 mg nebulization 4 times every day, oxygen support as needed. 11. IV site infection with minimal erythema continue with Zosyn for now continue Bactroban ointment to be applied twice every day, continue K pads. 12. Transfer outside the intensive care unit. 13. Home with home PT on Saturday. DISCHARGE PLAN To be determined. Most likely return home. PT and OT consults. Objective - Vital Signs Vital signs: Vital Signs Temp 97.8 F 08/13/20 08:00 Pulse 82 08/13/20 12:00 Resp 22 08/13/20 12:00 BP 109/61 08/13/20 12:00 Pulse Ox 96 08/13/20 12:00 Intake & Output 08/12/20 08/13/20 08/13/20 18:59 06:59 18:59 Intake Total 1500 2250 820 Output Total 835 900 765 Balance 665 1350 55 Weight 69.3 kg 75.5 kg Intake: IV 1300 1200 600 Dextrose 5%-0.45% NaCl 1, 1300 1200 600 000 ml @ 100 mls/hr IV . Q10H JONO Rx#:[id number] Intake, IV Titration 200 100 Amount Piperacillin-Tazobactam 3 200 100 .375 gm In Sodium Chloride 0.9% 100 ml @ 25 mls/hr IVPB Q8HR JONO Rx# :[id number] Tube Feeding 0 960 Other 90 120 Output: Urine 835 900 765 Other: Voiding Method Indwelling Catheter Indwelling Catheter Indwelling Catheter # Bowel Movements 1 1 - Labs CBC & Chem 7: 08/13/20 03:57 08/13/20 03:57 Labs: Abnormal Lab Results - Last 24 Hours (Table) 08/13/20 08/13/20 Range/Units 03:57 03:57 RBC 3.79 L (4.30-5.90) m/uL Hct 38.7 L (39.0-53.0) % MCV 102.1 H (80.0-100.0) fL Chloride 110 H (98-107) mmol/L Glucose 111 H (74-99) mg/dL Calcium 8.0 L (8.4-10.2) mg/dL Microbiology - Last 24 Hours (Table) 08/07/20 08:34 Blood Culture - Final Blood No Growth after 144 hours 08/07/20 08:25 Blood Culture - Final Blood No Growth after 144 hours
--- NOTE | 2020-08-14 11:30 | P.PN ---
Subjective Progress Note Date: 08/14/20 HISTORY OF PRESENT ILLNESS This is a 69-year-old male patient of mine with past medical history of Parkinson's disease status post intrathecal dopamine pump, hypothyroidism, vitamin D deficiency, detached right retina. His neurologist is Dr. Stallworth and he had recent family increased amantadine from 68.5 mg 237 mg one and half weeks ago and then increased to 174 mg on Saturday. Since the dose was increased, patient has had increasing weakness with falls, falling backward. Patient was brought into [facility] emergency center for evaluation. He was afebrile, heart rate 97, blood pressure 145/81, pulse ox 94% on room air. Last evening, patient received Zyprexa, Geodon and during evaluation today, aggressive behavior was improved. Patient has been seen by neurology with recommendations to continue carbidopa/levodopa via PEG tube, hold amantadine, consult PT and OT. Vitamin B12 and folate levels were ordered. Dr. Tolentino recommended Nuplazid (primavanserin) antipsychotic but not available in the hospital but can't be prescribed as an outpatient. Otherwise Seroquel 25 mg at bedtime and titrate up if needed. Recommendations also follow-up with his neurologist in 1-2 weeks after discharge. Laboratory studies: CBC was unremarkable. Electrolytes unremarkable. BUN 39 and creatinine 1.12. Blood sugar 114. SARS-CoV-2, RSV, and influenza not dete cted. CAT scan of the brain showed no acute intracranial hemorrhage, mass effect or midline shift. CAT scan of the cervical spine showed no acute fracture or dislocation. CAT scan mentions correlate for possible Covid pneumonia. Left hand x-ray shows no acute fracture or dislocation. Left tib-fib x-ray shows no acute fracture or dislocation. Chest x-ray reveals mild cardiomegaly and chronic changes without acute pulmonary process. 08/06: Patient sitting up in bed and is more awake and alert today he continues to be a bit confused, he did receive Geodon 20 mg IM yesterday, his was at bed side and she was questioning whether or not the patient to be transferred to [facility] where his neurologist is, however I told her we can start the Duo-Dopa here in the hospital during the day and she is in charge and that she would be taken off at night, and resume his feeding at nighttime, patient is able to use some water, patient already was seen in consultation by neurology we'll continue the current treatment plan, patient can be discharged home on Saturday with Nuplazid I will try to get some samples from the office. 08/07: Patient is sitting up in bed he continues to be restless he was seen earlier by neurology, he was started on Sinemet through the tube feeding he could not tolerate his Duodopa, this will continue to be off, he is off Gocovri , he had low-grade temperature, he appears to be tachypneic, his body is warm, he had occasional cough, appears to be a bit short of breath, a stat portable chest was done showed right perihilar atelectasis versus infiltrate he would be started on IV antibiotic in the form of Zosyn 3.375 g IV piggyback every 8 hours, continue IV fluid will increase the rate to 1 25 mL an hour, monitor the patient urine output, monitor the patient urine culture and blood culture as well. 08/08: The patient had Clayton catheter placed last evening for urinary retention. Sodium last evening at 10 PM was 149. Patient is awake and able to answer que stions but is very restless, sitter is at bedside. Patient is complaining of a sore throat but no complaints of significant pain. He does have phlegm in the back of his throat. He denies having a cough. Pulmonary medicine will be added. Temperature max was 99.4 axillary, heart rate 74, respiratory rate 26, blood pressure 105/54, pulse ox 95% on 2 L nasal cannula. Yesterday afternoon pulse ox was 89% on room air and he is currently 96% on 2 L nasal cannula. Repeat blood work is pending at the time of this dictation 8 AM. 08/09: Patient is seen today and his is at bedside. Patient is awake and alert. He does have jerking motion mostly on the right side. Patient did receive Sinemet. Discussed plan of care with the patient and his . Tomorrow morning patient will be resumed on his pump and she will bring it from home. Dr. Milian did make note about a decreased dose when resuming. We will plan to remove Clayton catheter tomorrow morning. IV fluids decreased to 75 mL per hour. Repeat blood work reveals WBC 10.6, hemoglobin 14.5, platelet count 170. I am 148, potassium 3.7, chloride 113, CO2 33,, BUN 47 creatinine 1.01. Blood sugar 136. Patient is continued on Zosyn for possible aspiration pneumonia. Plan for discharge is home on . 08/10: Patient has been afebrile, heart rate 66, blood pressure 136/78, pulse ox 97% on 2 L nasal cannula. WBC 8.7, hemoglobin 13.8, platelet count 173. Electrolytes and renal function are normal. Blood sugar 118. Calcium 7.8. Total bilirubin 0.3, AST 62, ALT 94, alkaline phosphatase 127. The cultures no growth at 72 hours. Patient started on Duopa pump today and Clayton catheter to be removed. Patient has been seen and followed by pulmonary medicine and subsequently signed off his case. Therapies have evaluated and recommend home with 24-hour care. Anticipate discharge home tomorrow. 08/11: Patient did not do well with Duopa pump with severe dyskinesias, dystonia and very uncomfortable. The dose was decreased but patient continued to have symptoms. Plan at this time is to hold pump and continue Sinemet 81563 milligrams 1 tablet 4 times daily. Neurology continues to follow May consider low-dose amantadine. Patient is noted to have a pustule and cellulitis of the left forearm secondary to previous IV site. Patient is on Zosyn already for aspiration pneumonia and will also be added Bactroban to be applied locally. Patient denies having any cough or sputum production. Clayton catheter was remove d yesterday but patient was straight cathetered 406 100 and Clayton was resumed. IV fluids will be changed to D5 half-normal saline at 100 mL per hour. Patient has been afebrile, heart rate 73, blood pressure 145/66, pulse ox 98% on 2 L nasal cannula. 08/12: Patient had episode of dystonia yesterday which was recorded by his . He received a dose of Benadryl and Ativan. A-Team called this morning at 2 AM. Patient was found by the nurse to be rigid, bradypnic and pale with pulse ox of 55%. He was lethargic and slow to respond. Dr. Milian was contacted and recommended transfer to tertiary care facility with movement disorder neurology service. Patient was transferred to the intensive care unit. Pulse ox is now 93-95% with 5 L high flow nasal cannula. campus monitor is sinus rhythm with occasional PVC. Heart rate 81, respiratory rate 18, blood pressure 117/82. Temperature max was 99.7 axillary area to p.m. yesterday. Repeat blood work reveals WBC 8.3, hemoglobin 14.3, platelet count 214. Sodium 140, potassium 4.1, chloride 109, CO2 28, BUN 19 and creatinine 0.81. Blood sugars are running between 99 and 137. Total bilirubin 0.3, AST 47, ALT 47, alkaline phosphatase 112. Calcium 8.5. Magnesium 2.2. Blood cultures are showing no growth after 96 hours. CAT scan of the brain done last evening revealed no acute intracranial abnormality. No change. Chest x-ray reveals chronic changes and cardiomegaly with new patchy left basilar opacities favoring atelectatic change. is sitting up in a recliner and patient's is at bedside. Plan to continue close monitoring in the intensive care unit overnight. 08/13: Patient is sitting up in the chair in no apparent distress, he continues to be somewhat restless due to his Parkinson, is doing well overnight at the intensive care unit, we'll trend distress for the patient to medical floor with telemetry, he would stay in the hospital over the weekend, and we'll discharge him home with a Clayton catheter on Saturday morning, he is to continue Flomax 0.4 mg orally once every day, he is to continue with Sinemet as well as amantadine the way it was ordered by the neurologist, hold off the Duopa pump for now, and follow up with Dr. Dumont as an outpatient. 08/14: Patient is sitting up in bed he is feeling much better today, he continues to be somewhat restless, he is receiving Sinemet as well as amantadine through his PEG tube, he will likely be discharged home tomorrow morning, we'll switch him to oral Augmentin 875 mg twice every day for 7 more days, and he will go home with a Clayton catheter in place continue with Flomax 0.4 mg once every day, we'll up as an outpatient with urology in one week, follow-up with me as an outpatient 1 week follow-up with Dr. Dumont from neurology in 1-2 weeks. REVIEW OF SYSTEMS Constitutional: Positive for fever, positive for chills, no night sweats. No weight change. positive for weakness, fatigue or lethargy. No daytime sleepiness. HEENT: No headache. No blurred vision or double vision, no loss of vision. No loss of Hearing, no ringing in the ears, no dizziness. No nasal drainage or congestion. No epistaxis. No sore throat. Lungs: positive for shortness of breath, positive for occasional cough, no sputum production. No wheezing. Cardiovascular: No chest pain, no lower extremity edema. No palpitations. No paroxysmal nocturnal dyspnea. No orthopnea. No lightheadedness or dizziness. No syncopal episodes. Abdominal: No abdominal pain. No nausea, vomiting. No diarrhea. No constipation. No bloody or tarry stools. Genitourinary: No dysuria, increased frequency, urgency. No urinary retention. Musculoskeletal: No myalgias. Positive for muscle weakness, positive for gait dysfunction, continues with restlessness and spasticity of the neck and upper torso. Integumentary: No wounds, no lesions. No rash or pruritus. No unusual bruising. No change in hair or nails. Neurologic: Continues to have encephalopathy , pressured speech, restlessness, spasticity of the upper torso and the neck. Psychiatric: patient does appear to have some psychosis that appears to be better. Endocrine: No abnormal blood sugars. No weight change. No excessive sweating or thirst. No cold intolerance. PHYSICAL EXAMINATION Gen: This is a 69-year-old male patient resting in bed in mild respiratory distress. HEENT: Head is atraumatic, normocephalic. Pupils round. Sclerae is anicteric. 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 Oral mucous membranes are dry, there is dopamine reservoirs bilaterally. NECK: Supple. No JVD. No lymphadenopathy. No thyromegaly. LUNGS: there is decreased breath sounds at the bases, few rhonchi, minimal expiratory wheezes, no chest wall tenderness, no intercostal retractions, bilateral batteries in upper chest. HEART: First heart sound is depressed, second heart sound is normal, there is no gallop or murmur, no rubs or heaves. ABDOMEN: Soft. Bowel sounds are present. No masses. No tenderness. PEG tube site with no signs of drainage, erythema. EXTREMITIES: No pedal edema. No calf tenderness. dorsalis pedis +2 bilaterally, bilateral hammertoes. NEUROLOGICAL: Patient is awake, alert and oriented to person and able to follow simple commands no aphasia. Masklike face. 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 ASSESSMENT AND PLAN 1. Aggressive behavior with acute psychosis secondary to amantadine recently increased dosing. Patient was taken off his Duopa pump, continue Sinemet 25/100 one tablet 4 times every day along with 10/100 half a full 4 times every day, continue amantadine 100 mg per PEG tube twice every day, follow-up with Dr. Dumont as an outpatient. 2. Parkinson's disease on dopamine pump. This was taken off the patient is to be maintained on Sinemet 25/100 as well as 10/104 times every day along with amantadine 100 mg orally twice every day. 3. Moderate protein calorie malnutrition and risk for aspiration, chronic PEG tube.continue to feeding at night. 4. Hypothyroidism. Continue levothyroxine 125 g daily. 5. Vitamin D deficiency, stable. 6. Macrocytosis. Vitamin B12 and folate levels ordered. 7. GI prophylaxis. Pepcid 20 mg daily per PEG tube. 8. DVT prophylaxis. continue heparin 5000 units subcutaneously every 12 hours. 9. COVID-19 testing negative. Patient has been hospitalized during a pandemic. 10. Right perihilar infiltrate cirrhosis of atelectasis versus aspiration pneumonia start the patient on Zosyn 3.375 g IV piggyback every 8 hours, continue to monitor the patient very closely, nebulized treatment in the form of DuoNeb 3 mg nebulization 4 times every day, oxygen support as needed. 11. IV site infection with minimal erythema continue with Zosyn for now continue Bactroban ointment to be applied twice every day, continue K pads. 12. Transfer outside the intensive care unit. 13. Home with home PT on Saturday. DISCHARGE PLAN To be determined. Most likely return home. PT and OT consults. Objective - Vital Signs Vital signs: Vital Signs Temp 98.4 F 08/14/20 04:21 Pulse 84 08/14/20 04:21 Resp 20 08/14/20 04:21 BP 130/71 08/14/20 04:21 Pulse Ox 94 L 08/14/20 04:21 Intake & Output 08/13/20 08/14/20 08/14/20 18:59 06:59 18:59 Intake Total 1220 Output Total 1395 800 450 Balance -175 -800 -450 Weight 74.5 kg Intake: IV 900 Dextrose 5%-0.45% NaCl 1, 900 000 ml @ 100 mls/hr IV . Q10H [facility] Rx#:[id number] Intake, IV Titration 200 Amount Piperacillin-Tazobactam 3 200 .375 gm In Sodium Chloride 0.9% 100 ml @ 25 mls/hr IVPB Q8HR [facility] Rx# :[id number] Other 120 Output: Urine 1395 800 450 Straight 800 Other: Voiding Method Indwelling Catheter Indwelling Catheter Indwelling Catheter # Bowel Movements 1 1 - Labs CBC & Chem 7: 08/13/20 03:57 08/13/20 03:57 Labs: Microbiology - Last 24 Hours (Table) 08/07/20 08:34 Blood Culture - Final Blood No Growth after 144 hours 08/07/20 08:25 Blood Culture - Final Blood No Growth after 144 hours
[2020-08-14] MEDS ORDERED: ZOLPIDEM 10 MG TAB PO SCH (21:00)
[2020-08-14] MEDS: AMOXIC-POT CLAV 200-28.5MG/5ML 100 ML BOTTLE PO SCH (21:11)
[2020-08-15] MEDS: HEPARIN SODIUM,PORCINE/PF 5,000 UNIT/0.5 ML SYRINGE SQ SCH ×2 (00:26→08:56)
[2020-08-15] MEDS ORDERED: ALPRAZolam 0.25 MG TAB PO STA (03:53)
[2020-08-15 05:07] VITALS: PULSE 83
[2020-08-15] MEDS: LEVOTHYROXINE 125 MCG TAB PO SCH (06:04)
[2020-08-15 06:27] LABS: Basophils % (A) 0 %; Eosinophils # (A) 0.2 k/uL (0-0.7); Eosinophils % (A) 3 %; HCT 39.5 % (39.0-53.0); Lymphocytes # (A) 1.5 k/uL (1.0-4.8); Lymphocytes % (A) 16 %; MCH 33.2 pg (25.0-35.0); MCHC 32.9 g/dL (31.0-37.0); MCV 100.9 fL (80.0-100.0); Mean Platelet Volume 9.4; Monocytes # (A) 0.5 k/uL (0-1.0); Monocytes % (A) 5 %; Neutrophils # (A) 6.9 k/uL (1.3-7.7); Neutrophils % (A) 75 %; Platelet Count 278 k/uL (150-450); RBC 3.92 m/uL (4.30-5.90); RDW 13.1 % (11.5-15.5); WBC 9.2 k/uL (3.8-10.6)
[2020-08-15] MEDS: IPRATROPIUM-ALBUTEROL 3 ML NEB INHALATION SCH ×2 (08:03→11:54)
[2020-08-15] MEDS: CARBIDOPA-LEVODOPA 25-100 MG 1 EACH TAB PO SCH ×2 (08:56→12:05)
[2020-08-15] MEDS: DEXTROSE 5%-0.45% NACL 1,000 ML IV SCH (08:56)
[2020-08-15] MEDS: CYANOCOBALAMIN 500 MCG TAB PO SCH (08:56)
[2020-08-15] MEDS: CARBIDOPA-LEVODOPA 10-100 MG 1 EACH TAB PO SCH ×2 (08:56→12:05)
[2020-08-15] MEDS: FAMOTIDINE 20 MG TAB PEG/G-TUBE SCH (08:56)
[2020-08-15] MEDS: MUPIROCIN 2% OINT 22 GM TUBE TOPICAL SCH (08:57)
[2020-08-15] MEDS: AMOXIC-POT CLAV 200-28.5MG/5ML 100 ML BOTTLE PO SCH (09:49)
[2020-08-15 10:28] LABS: African American GFR (CKD) 104.9 (60.0-200.0); Albumin 3.2 g/dL (3.80-4.90); Albumin/Globulin Ratio 1.88 (1.60-3.17); Anion Gap 5.1 mmol/L (4.00-12.00); BUN/Creat Ratio 13.75 Ratio (12.00-20.00); Calcium 8.2 mg/dL (8.7-10.3); Carbon Dioxide 26.9 mmol/L (21.6-31.8); Globulin 1.7 g/dL (1.6-3.3); Non-African American GFR(CKD) 90.5 (60.0-200.0); Potassium 4.2 mmol/L (3.5-5.5); Total Bilirubin 0.1 mg/dL (0.3-1.2); Total Protein 4.9 g/dL (6.2-8.2)
--- NOTE | 2020-08-15 12:28 | P.DS ---
Providers Date of admission: 08/04/20 14:28 Expected date of discharge: 08/15/20 Attending physician: Rose Noyola Consults: 08/04/20 14:34 Consult Physician Urgent Consulting Provider: Manish Tolentino Consult Reason/Comments: acute encephalopathy, aggressive behavior, parkinsons disease w/med change Do you want consulting provider notified?: Yes 08/08/20 07:52 Consult Physician Routine Consulting Provider: Madhuri Payton Consult Reason/Comments: aspiration pneumonia Do you want consulting provider notified?: Yes Primary care physician: Rose Noyola Hospital Course: HISTORY OF PRESENT ILLNESS This is a 69-year-old male patient of mine with past medical history of Parkinson's disease status post intrathecal dopamine pump, hypothyroidism, vitamin D deficiency, detached right retina. His neurologist is Dr. Stallworth and he had recent family increased amantadine from 68.5 mg 237 mg one and half weeks ago and then increased to 174 mg on Saturday. Since the dose was increased, patient has had increasing weakness with falls, falling backward. Patient was brought into [facility] emergency center for evaluation. He was afebrile, heart rate 97, blood pressure 145/81, pulse ox 94% on room air. Last evening, patient received Zyprexa, Geodon and during evaluation today, aggressive behavior was improved. Patient has been seen by neurology with recommendations to continue carbidopa/levodopa via PEG tube, hold amantadine, consult PT and OT. Vitamin B12 and folate levels were ordered. Dr. Tolentino recommended Nuplazid (primavanserin) antipsychotic but not available in the hospital but can't be prescribed as an outpatient. Otherwise Seroquel 25 mg at bedtime and titrate up if needed. Recommendations also follow-up with his neurologist in 1-2 weeks after discharge. Laboratory studies: CBC was unremarkable. Electrolytes unremarkable. BUN 39 and creatinine 1.12. Blood sugar 114. SARS-CoV-2, RSV, and influenza not detected. CAT scan of the brain showed no acute intracranial hemorrhage, mass effect or midline shift. CAT scan of the cervical spine showed no acute fracture or dislocation. CAT scan mentions correlate for possible Covid pneumonia. Left hand x-ray shows no acute fracture or dislocation. Left tib-fib x-ray shows no acute fracture or dislocation. Chest x-ray reveals mild cardiomegaly and chronic changes without acute pulmonary process. 08/06: Patient sitting up in bed and is more awake and alert today he continues to be a bit confused, he did receive Geodon 20 mg IM yesterday, his was at bedside and she was questioning whether or not the patient to be transferred to [facility] where his neurologist is, however I told her we can start the Duo-Dopa here in the hospital during the day and she is in charge and that she would be taken off at night, and resume his feeding at nighttime, patient is able to use some water, patient already was seen in consultation by neurology we'll continue the current treatment plan, patient can be discharged home on Saturday with Nuplazid I will try to get some samples from the office. 08/07: Patient is sitting up in bed he continues to be restless he was seen earlier by neurology, he was started on Sinemet through the tube feeding he could not tolerate his Duodopa, this will continue to be off, he is off Gocovri , he had low-grade temperature, he appears to be tachypneic, his body is warm, he had occasional cough, appears to be a bit short of breath, a stat portable chest was done showed right perihilar atelectasis versus infiltrate he would be started on IV antibiotic in the form of Zosyn 3.375 g IV piggyback every 8 hours, continue IV fluid will increase the rate to 1 25 mL an hour, monitor the patient urine output, monitor the patient urine culture and blood culture as well. 08/08: The patient had Clayton catheter placed last evening for urinary retention. Sodium last evening at 10 PM was 149. Patient is awake and able to answer questions but is very restless, sitter is at bedside. Patient is complaining of a sore throat but no complaints of significant pain. He does have phlegm in the back of his throat. He denies having a cough. Pulmonary medicine will be added. Temperature max was 99.4 axillary, heart rate 74, respiratory rate 26, blood pressure 105/54, pulse ox 95% on 2 L nasal cannula. Yesterday afternoon pulse ox was 89% on room air and he is currently 96% on 2 L nasal cannula. Repeat blood work is pending at the time of this dictation 8 AM. 08/09: Patient is seen today and his is at bedside. Patient is awake and alert. He does have jerking motion mostly on the right side. Patient did receive Sinemet. Discussed plan of care with the patient and his . Tomorrow morning patient will be resumed on his pump and she will bring it from home. Dr. Milian did make note about a decreased dose when resuming. We will plan to remove Clayton catheter tomorrow morning. IV fluids decreased to 75 mL per hour. Repeat blood work reveals WBC 10.6, hemoglobin 14.5, platelet count 170. I am 148, potassium 3.7, chloride 113, CO2 33,, BUN 47 creatinine 1.01. Blood sugar 136. Patient is continued on Zosyn for possible aspiration pneumonia. Plan for discharge is home on . 08/10: Patient has been afebrile, heart rate 66, blood pressure 136/78, pulse ox 97% on 2 L nasal cannula. WBC 8.7, hemoglobin 13.8, platelet count 173. Electrolytes and renal function are normal. Blood sugar 118. Calcium 7.8. Total bilirubin 0.3, AST 62, ALT 94, alkaline phosphatase 127. The cultures no growth at 72 hours. Patient started on Duopa pump today and Clayton catheter to be removed. Patient has been seen and followed by pulmonary medicine and subsequently signed off his case. Therapies have evaluated and recommend home with 24-hour care. Anticipate discharge home tomorrow. 08/11: Patient did not do well with Duopa pump with severe dyskinesias, dystonia and very uncomfortable. The dose was decreased but patient continued to have symptoms. Plan at this time is to hold pump and continue Sinemet 68934 milligrams 1 tablet 4 times daily. Neurology continues to follow May consider low-dose amantadine. Patient is noted to have a pustule and cellulitis of the left forearm secondary to previous IV site. Patient is on Zosyn already for aspiration pneumonia and will also be added Bactroban to be applied locally. Patient denies having any cough or sputum production. Clayton catheter was removed yesterday but patient was straight cathetered 406 100 and Clayton was resumed. IV fluids will be changed to D5 half-normal saline at 100 mL per hour. Patient has been afebrile, heart rate 73, blood pressure 145/66, pulse ox 98% on 2 L nasal cannula. 5/7: Patient had episode of dystonia yesterday which was recorded by his . He received a dose of Benadryl and Ativan. A-Team called this morning at 2 AM. Patient was found by the nurse to be rigid, bradypnic and pale with pulse ox of 55%. He was lethargic and slow to respond. Dr. Milian was contacted and recommended transfer to tertiary care facility with movement disorder neurology service. Patient was transferred to the intensive care unit. Pulse ox is now 93-95% with 5 L high flow nasal cannula. manager access is sinus rhythm with occasional PVC. Heart rate 81, respiratory rate 18, blood pressure 117/82. Temperature max was 99.7 axillary area to p.m. yesterday. Repeat blood work reveals WBC 8.3, hemoglobin 14.3, platelet count 214. Sodium 140, potassium 4.1, chloride 109, CO2 28, BUN 19 and creatinine 0.81. Blood sugars are running between 99 and 137. Total bilirubin 0.3, AST 47, ALT 47, alkaline phosphatase 112. Calcium 8.5. Magnesium 2.2. Blood cultures are showing no growth after 96 hours. CAT scan of the brain done last evening revealed no acute intracranial abnormality. No change. Chest x-ray reveals chronic changes and cardiomegaly with new patchy left basilar opacities favoring atelectatic change. is sitting up in a recliner and patient's is at bedside. Plan to continue close monitoring in the intensive care unit overnight. 08/13: Patient is sitting up in the chair in no apparent distress, he continues to be somewhat restless due to his Parkinson, is doing well overnight at the intensive care unit, we'll trend distress for the patient to medical floor with telemetry, he would stay in the hospital over the weekend, and we'll discharge him home with a Clayton catheter on Saturday morning, he is to continue Flomax 0.4 mg orally once every day, he is to continue with Sinemet as well as amantadine the way it was ordered by the neurologist, hold off the Duopa pump for now, and follow up with Dr. Dumont as an outpatient. 08/14: Patient is sitting up in bed he is feeling much better today, he continues to be somewhat restless, he is receiving Sinemet as well as amantadine through his PEG tube, he will likely be discharged home tomorrow morning, we'll switch him to oral Augmentin 875 mg twice every day for 7 more days, and he will go home with a Clayton catheter in place continue with Flomax 0.4 mg once every day, we'll up as an outpatient with urology in one week, follow-up with me as an outpatient 1 week follow-up with Dr. Dumont from neurology in 1-2 weeks. PHYSICAL EXAMINATION Gen: This is a 69-year-old male patient resting in bed in mild respiratory distress. HEENT: Head is atraumatic, normocephalic. Pupils round. Sclerae is anicteric. 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 Oral mucous membranes are dry, there is dopamine reservoirs bilaterally. NECK: Supple. No JVD. No lymphadenopathy. No thyromegaly. LUNGS: there is decreased breath sounds at the bases, few rhonchi, minimal expiratory wheezes, no chest wall tenderness, no intercostal retractions, bilateral batteries in upper chest. HEART: First heart sound is depressed, second heart sound is normal, there is no gallop or murmur, no rubs or heaves. ABDOMEN: Soft. Bowel sounds are present. No masses. No tenderness. PEG tube site with no signs of drainage, erythema. EXTREMITIES: No pedal edema. No calf tenderness. dorsalis pedis +2 bilaterally, bilateral hammertoes. NEUROLOGICAL: Patient is awake, alert and oriented to person and able to follow simple commands no aphasia. Masklike face. 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 Discharge diagnoses: 1. Aggressive behavior with acute psychosis secondary to amantadine recently increased dosing. 2. Parkinson's disease on dopamine pump. 3. Moderate protein calorie malnutrition and risk for aspiration, chronic PEG tube.continue to feeding at night. 4. Hypothyroidism. 5. Vitamin D deficiency. 6. Macrocytosis. 7. GI prophylaxis. 8. DVT prophylaxis. 9. COVID-19 testing negative. 10. Right perihilar infiltrate cirrhosis of atelectasis versus aspiration pneumonia. 11. IV site infection with minimal erythema Patient Condition at Discharge: Stable Plan - Discharge Summary Discharge Rx Participant: Yes New Discharge Prescriptions: No Action ALPRAZolam [Xanax] 0.5 mg PO 5XD PRN PRN Reason: Anxiety Zolpidem [Ambien] 10 mg PO HS Carbidopa/Levodopa [Duopa 4.63 mg-20 mg/ml Susp] 1 dose INTRATHECA CONTINUOUS Amantadine HCl [Gocovri] 68.5 mg PO BID Levothyroxine Sodium [Synthroid] 125 mcg PO DAILY Discharge Medication List ALPRAZolam [Xanax] 0.5 mg PO 5XD PRN 01/15/18 [History] Carbidopa/Levodopa [Duopa 4.63 mg-20 mg/ml Susp] 1 dose INTRATHECA CONTINUOUS 01/15/18 [History] Zolpidem [Ambien] 10 mg PO HS 01/15/18 [History] Amantadine HCl [Gocovri] 68.5 mg PO BID 08/04/20 [History] Levothyroxine Sodium [Synthroid] 125 mcg PO DAILY 08/04/20 [History] Follow up Appointment(s)/Referral(s): Rose Noyola MD [Primary Care Provider] - 1 Week Enoch Stallworth DO [REFERRING] - 1 Week [facility], [NON-STAFF] - 1 Week [facility], [REFERRING] - 1 Week
[2020-08-15 12:35] VITALS: BP 158/82; RESP 20; TEMP 98.5
== END 2020-08-15 15:24 | disposition home health service (06) | DRG 885 ==
LOC: EC 11:55 → 4SSUR 14:28 → 2SICU 08-12 01:26 → 5NMEDONC 08-13 15:50
PROVIDERS: ADMIT Internal Medicine; ATTEND Internal Medicine
DX: F23 Brief psychotic disorder (principal); J69.0 Pneumonitis due to inhalation of food and vomit; G93.41 Metabolic encephalopathy; E44.0 Moderate protein-calorie malnutrition; G24.02 Drug induced acute dystonia; E87.0 Hyperosmolality and hypernatremia; Z43.1 Encounter for attention to gastrostomy; J98.11 Atelectasis; T80.29XA Infection following other infusion, transfusion and therapeutic injection, initial encounter; L03.114 Cellulitis of left upper limb; E87.8 Other disorders of electrolyte and fluid balance, not elsewhere classified; G20 Parkinson's disease; Z20.822 Contact with and (suspected) exposure to COVID-19; T42.8X5A Adverse effect of antiparkinsonism drugs and other central muscle-tone depressants, initial encounter; E86.0 Dehydration; E55.9 Vitamin D deficiency, unspecified; D75.89 Other specified diseases of blood and blood-forming organs; E89.0 Postprocedural hypothyroidism; H54.61 Unqualified visual loss, right eye, normal vision left eye; R29.6 Repeated falls; R47.1 Dysarthria and anarthria; R32 Unspecified urinary incontinence; R33.9 Retention of urine, unspecified; Z68.23 Body mass index [BMI] 23.0-23.9, adult; Z79.890 Hormone replacement therapy; Z79.899 Other long term (current) drug therapy; Z96.82 Presence of neurostimulator; Z91.81 History of falling; Z87.891 Personal history of nicotine dependence; Z86.69 Personal history of other diseases of the nervous system and sense organs; Z98.890 Other specified postprocedural states; Z71.3 Dietary counseling and surveillance; W19.XXXA Unspecified fall, initial encounter; Y92.009 Unspecified place in unspecified non-institutional (private) residence as the place of occurrence of the external cause; Z88.2 Allergy status to sulfonamides; Z80.0 Family history of malignant neoplasm of digestive organs; Z80.1 Family history of malignant neoplasm of trachea, bronchus and lung; Z82.69 Family history of other diseases of the musculoskeletal system and connective tissue; R79.89 Other specified abnormal findings of blood chemistry; Y92.230 Patient room in hospital as the place of occurrence of the external cause
CPT/HCPCS: 36415; 70450; 71045; 72125; 80048; 80053; 81001; 82550; 82607; 82746; 83735; 84145; 84295; 84439; 84443; 84484; 85025; 85027; 85610; 85730; 87040; 87636; 93005; 94640; 96374; 99285

== ENCOUNTER 2021-12-11 09:53 | Inpatient (IN) | payer MEDICARE ==
[2021-12-11 10:27] LABS: Basophils # (A) 0.1 k/uL (0-0.2); Basophils % (A) 0 %; Eosinophils # (A) 0.1 k/uL (0-0.7); Eosinophils % (A) 1 %; HCT 43.8 % (39.0-53.0); HGB 14.3 gm/dL (13.0-17.5); Lymphocytes % (A) 7 %; MCH 33.5 pg (25.0-35.0); MCHC 32.7 g/dL (31.0-37.0); MCV 102.3 fL (80.0-100.0); Macrocytosis Slight; Mean Platelet Volume 8.4; Monocytes # (A) 0.8 k/uL (0-1.0); Monocytes % (A) 5 %; Neutrophils # (A) 13.2 k/uL (1.3-7.7); Neutrophils % (A) 86 %; Platelet Count 195 k/uL (150-450); RBC 4.28 m/uL (4.30-5.90); RDW 12.4 % (11.5-15.5); WBC 15.3 k/uL (3.8-10.6)
[2021-12-11] MEDS ORDERED: SODIUM CHLORIDE 0.9% 1,000 ML IV STA (10:27)
--- NOTE | 2021-12-11 10:32 | ED ---
General Adult HPI - General Chief complaint: Weakness Stated complaint: weakness Time Seen by Provider: 12/11/21 09:59 Source: EMS Mode of arrival: EMS Limitations: no limitations - History of Present Illness Initial comments: Dictation was produced using [employer] dictation software. please excuse any grammatical, word or spelling errors. Chief Complaint: 71-year-old male presents emergency department for worsening weakness History of Present Illness: This 71-year-old male past medical history of Parkinson's disease, detached retina, dysphagia and urinary retention. He presents emergency department for worsening weakness. Patient has multiple comorbidities. He is gravely disabled. He is brought in by EMS from home. called because patient has been having worsening weakness. Patient is usually ambulatory however over the last 7 days. Getting worse to the point where he is unable to do things that he used to be able to do. Patient states that he feels weak in both of his lower extremities. Denies any weakness in his arms. Patient was recently in [facility] for jejunostomy tube revision. reports that since then he has not been feeling well. Furthermore, it appears that patient is unable to get full feedings with her current feeding tube apparatus. The ROS documented in this emergency department record has been reviewed and confirmed by me. Those systems with pertinent positive or negative responses have been documented in the HPI. All other systems are other negative and/or noncontributory. PHYSICAL EXAM: General Impression: Alert and oriented x3, not in acute distress HEENT: Normocephalic atraumatic, extra-ocular movements intact, pupils equal and reactive to light bilaterally, dry mucous membranes Cardiovascular: Heart regular rate and rhythm Chest: Able to complete full sentences, no retractions, no tachypnea Abdomen: abdomen soft, non-tender, non-distended, no organomegaly, feeding tube in place with no surrounding erythema or induration Musculoskeletal: Pulses present and equal in all extremities, no peripheral edema Motor: no focal deficits noted Neurological: CN II-XII grossly intact, no focal motor or sensory deficits noted Skin: Intact with no visualized rashes Psych: Normal affect and mood ED course: 71-year-old male presents emergency department for worsening weakness. Patient has multiple comorbidities. Signs upon arrival are within acceptable limits. Laboratory evaluation shows leukocytosis of 15.3. Coag panel is unremarkable. Metabolic panel is within acceptable limits. Mild uremia likely from dehydration. Urinalysis positive for urinary tract infection. Chan Weeleo was reviewed. Patient has history of polymicrobial urinary tract infection. Patient started on broad-spectrum antibiotics. Patient be admitted to a [place] hospitalist group was covering for Dr. Noyola. Infectious disease consult it. EKG interpretation: Ventricular rate a 90, sinus rhythm,. 181, QS 118, QTC 397. No DE prolongation, no QTC prolongation, no ST or T-wave changes noted. Overall, this EKG is unremarkable - Related Data Home Medications Medication Instructions Recorded Confirmed ALPRAZolam [Xanax] 0.5 mg PO 5XD PRN 01/15/18 08/04/20 Zolpidem [Ambien] 10 mg PO HS 01/15/18 08/04/20 Levothyroxine Sodium [Synthroid] 125 mcg PO DAILY 08/04/20 08/04/20 Previous Rx's Medication Instructions Recorded Amoxic-Pot Clav 200-28.5MG/5Ml 12 ml PO Q12HR 7 Days #1 bottle 08/15/20 [Augmentin 200-28.5 mg/5 ml Susp] Carbidopa-Levodopa 10-100 mg 0.5 each PO QID #120 tab 08/15/20 [Sinemet 10-100 mg] Carbidopa-Levodopa 25-100 mg 1 each PO QID #120 tab 08/15/20 [Sinemet 25-100 mg] Cyanocobalamin [Vitamin B-12] 1,000 mcg PO DAILY tab 08/15/20 amantadine HCL [Amantadine] 100 mg PO BID #60 capsule 08/15/20 Allergies Allergy/AdvReac Type Severity Reaction Status Date / Time Sulfa (Sulfonamide Allergy Unknown Verified 12/11/21 10:02 Antibiotics) Review of Systems ROS Statement: Those systems with pertinent positive or pertinent negative responses have been documented in the HPI. ROS Other: All systems not noted in ROS Statement are negative. Past Medical History Additional Past Medical History / Comment(s): Parkinsons disease, detached retina History of Any Multi-Drug Resistant Organisms: MRSA Date of last positivie culture/infection: 11/03/21 MDRO Source:: Urine Additional Past Surgical History / Comment(s): Feeding tube placed, Past Psychological History: No Psychological Hx Reported Smoking Status: Never smoker Past Alcohol Use History: None Reported Past Drug Use History: None Reported General Exam Limitations: no limitations Course Vital Signs 12/11/21 12/11/21 09:54 10:58 Temperature 98 F Pulse Rate 98 86 Respiratory 18 16 Rate Blood Pressure 116/67 115/60 O2 Sat by Pulse 91 L 96 Oximetry Medical Decision Making - Lab Data Result diagrams: 12/11/21 10:16 12/11/21 10:16 Lab Results 12/11/21 12/11/21 12/11/21 Range/Units 10:16 10:16 10:16 WBC 15.3 H (3.8-10.6) k/uL RBC 4.28 L (4.30-5.90) m/uL Hgb 14.3 (13.0-17.5) gm/dL Hct 43.8 (39.0-53.0) % MCV 102.3 H (80.0-100.0) fL MCH 33.5 (25.0-35.0) pg MCHC 32.7 (31.0-37.0) g/dL RDW 12.4 (11.5-15.5) % Plt Count 195 (150-450) k/uL MPV 8.4 Neutrophils % 86 % Lymphocytes % 7 % Monocytes % 5 % Eosinophils % 1 % Basophils % 0 % Neutrophils # 13.2 H (1.3-7.7) k/uL Lymphocytes # 1.0 (1.0-4.8) k/uL Monocytes # 0.8 (0-1.0) k/uL Eosinophils # 0.1 (0-0.7) k/uL Basophils # 0.1 (0-0.2) k/uL Macrocytosis Slight PT 10.8 (9.0-12.0) sec INR 1.0 (<1.2) APTT 28.8 (22.0-30.0) sec Sodium (137-145) mmol/L Potassium (3.5-5.1) mmol/L Chloride (98-107) mmol/L Carbon Dioxide (22-30) mmol/L Anion Gap mmol/L BUN (9-20) mg/dL Creatinine (0.66-1.25) mg/dL Est GFR (CKD-EPI)AfAm (>60 ml/min/1.73 sqM) Est GFR (CKD-EPI)NonAf (>60 ml/min/1.73 sqM) Glucose (74-99) mg/dL Plasma Lactic Acid Bob (0.7-2.0) mmol/L Calcium (8.4-10.2) mg/dL Magnesium (1.6-2.3) mg/dL Total Bilirubin (0.2-1.3) mg/dL AST (17-59) U/L ALT (4-49) U/L Alkaline Phosphatase (38-126) U/L Total Protein (6.3-8.2) g/dL Albumin (3.5-5.0) g/dL Urine Color Yellow Urine Appearance Turbid (Clear) Urine pH 6.0 (5.0-8.0) Ur Specific [place] 1.023 (1.001-1.035) Urine Protein 2+ H (Negative) Urine Glucose (UA) Negative (Negative) Urine Ketones Trace H (Negative) Urine Blood Small H (Negative) Urine Nitrite Positive (Negative) Urine Bilirubin Negative (Negative) Urine Urobilinogen <2.0 (<2.0) mg/dL Ur Leukocyte Esterase Large H (Negative) Urine RBC 33 H (0-5) /hpf Urine WBC >182 H (0-5) /hpf Urine WBC Clumps Few H (None) /hpf Ur Squamous Epith Cells 1 (0-4) /hpf Hyaline Casts 10 H (0-2) /lpf Urine Mucus Many H (None) /hpf 12/11/21 12/11/21 Range/Units 10:16 10:16 WBC (3.8-10.6) k/uL RBC (4.30-5.90) m/uL Hgb (13.0-17.5) gm/dL Hct (39.0-53.0) % MCV (80.0-100.0) fL MCH (25.0-35.0) pg MCHC (31.0-37.0) g/dL RDW (11.5-15.5) % Plt Count (150-450) k/uL MPV Neutrophils % % Lymphocytes % % Monocytes % % Eosinophils % % Basophils % % Neutrophils # (1.3-7.7) k/uL Lymphocytes # (1.0-4.8) k/uL Monocytes # (0-1.0) k/uL Eosinophils # (0-0.7) k/uL Basophils # (0-0.2) k/uL Macrocytosis PT (9.0-12.0) sec INR (<1.2) APTT (22.0-30.0) sec Sodium 136 L (137-145) mmol/L Potassium 4.5 (3.5-5.1) mmol/L Chloride 102 (98-107) mmol/L Carbon Dioxide 24 (22-30) mmol/L Anion Gap 10 mmol/L BUN 29 H (9-20) mg/dL Creatinine 1.20 (0.66-1.25) mg/dL Est GFR (CKD-EPI)AfAm 70 (>60 ml/min/1.73 sqM) Est GFR (CKD-EPI)NonAf 60 (>60 ml/min/1.73 sqM) Glucose 123 H (74-99) mg/dL Plasma Lactic Acid Bob 0.8 (0.7-2.0) mmol/L Calcium 8.7 (8.4-10.2) mg/dL Magnesium 2.0 (1.6-2.3) mg/dL Total Bilirubin 0.7 (0.2-1.3) mg/dL AST 24 (17-59) U/L ALT <6 (4-49) U/L Alkaline Phosphatase 135 H (38-126) U/L Total Protein 6.0 L (6.3-8.2) g/dL Albumin 3.4 L (3.5-5.0) g/dL Urine Color Urine Appearance (Clear) Urine pH (5.0-8.0) Ur Specific [place] (1.001-1.035) Urine Protein (Negative) Urine Glucose (UA) (Negative) Urine Ketones (Negative) Urine Blood (Negative) Urine Nitrite (Negative) Urine Bilirubin (Negative) Urine Urobilinogen (<2.0) mg/dL Ur Leukocyte Esterase (Negative) Urine RBC (0-5) /hpf Urine WBC (0-5) /hpf Urine WBC Clumps (None) /hpf Ur Squamous Epith Cells (0-4) /hpf Hyaline Casts (0-2) /lpf Urine Mucus (None) /hpf Disposition Clinical Impression: UTI (urinary tract infection) Disposition: ADMITTED IP TO THIS [facility] Condition: Serious Referrals: Rose Noyola MD [Primary Care Provider] - 1-2 days Decision Time: 11:10
[2021-12-11 10:37] LABS: Partial Thromboplastin Time 28.8 sec (22.0-30.0); Prothrombin Time 10.8 sec (9.0-12.0)
[2021-12-11 10:38] LABS: ALT <6 U/L (4-49); AST 24 U/L (17-59); African American GFR (CKD) 70 (>60 ml/min/1.73 sqM); Albumin 3.4 g/dL (3.5-5.0); Alkaline Phosphatase 135 U/L (38-126); Anion Gap 10 mmol/L; Blood Urea Nitrogen 29 mg/dL (9-20); Calcium 8.7 mg/dL (8.4-10.2); Carbon Dioxide 24 mmol/L (22-30); Chloride 102 mmol/L (98-107); Glucose 123 mg/dL (74-99); Non-African American GFR(CKD) 60 (>60 ml/min/1.73 sqM); Potassium 4.5 mmol/L (3.5-5.1); Sodium 136 mmol/L (137-145); Total Bilirubin 0.7 mg/dL (0.2-1.3)
[2021-12-11 10:45] LABS: Appearance,Urine Turbid (Clear); Bilirubin,Urine Negative (Negative); Blood,Urine Small (Negative); Color,Urine Yellow; Glucose,Urine (UA) Negative (Negative); Hyaline Casts,Urine 10 /lpf (0-2); Ketones,Urine Trace (Negative); Leukocyte Esterase,Urine Large (Negative); Mucus,Urine Many /hpf; Nitrite,Urine Positive (Negative); Protein,Urine 2+ (Negative); RBC,Urine 33 /hpf (0-5); Specific Gravity,Urine 1.023 (1.001-1.035); Squamous Epithelial Cell,Urine 1 /hpf (0-4); Urobilinogen,Urine <2.0 mg/dL (<2.0); WBC,Urine >182 /hpf (0-5)
[2021-12-11] MEDS ORDERED: VANCOMYCIN IV PER PHARMACY 1 EACH MISC MISCELLANE PRN (10:59)
[2021-12-11] MEDS ORDERED: PIPERACILLIN-TAZOBACTAM 3.375 GM in SODIUM CHLORIDE 0.9% 100 ML IVPB STA (11:00)
[2021-12-11] MEDS ORDERED: VANCOMYCIN 1,500 MG in SODIUM CHLORIDE 0.9% 250 ML IVPB STA (11:03)
[2021-12-11] MEDS ORDERED: NALOXONE 0.4 MG/ML 1 ML VIAL IV PRN (11:07)
[2021-12-11] MEDS ORDERED: ONDANSETRON 4 MG/2 ML VIAL IVP PRN (11:07)
--- NOTE | 2021-12-11 12:41 | P.HPIM ---
History of Present Illness this is a pleasant 71 yo M with past medical history of Parkinsons disease, detached retina. Urinary retention status post indwelling Clayton catheter for about one year. History of dysphagia status post PEG As per at bedside patient came because of generalized weakness, he is been struggling with infected urine for a while and he seen by Dr. Campo. Associated with difficulty walking and bladder cramps solidly decided to come to the hospital. Also patient began complaining of from constipation, status post PEG tube place ment secondary to Parkinson disease Patient denies chest pain or dyspnea No vomiting or abdominal pain. No headache or weakness or numbness. Patient is slightly confused and drowsy. No smoking, alcohol or illicit drugs. His neurologist is Dr. Price in [facility] [place] looks stable. Labs showed leukocytosis of 15.3, rest of CBC, INR, BMP and liver enzymes are unremarkable. Urinalysis looks infected. Cultures pending. EKG showing sinus rhythm at [address]-T changes Review of Systems Review of systems CONSTITUTIONAL: No fever, no malaise, no fatigue. HEENT: No recent visual problems or hearing problems. Denied any sore throat. CARDIOVASCULAR: No orthopnea, PND, no palpitations, no syncope. PULMONARY: No shortness of breath, no cough, no hemoptysis. GASTROINTESTINAL: No diarrhea, no nausea, no vomiting, no abdominal pain. Normoactive bowel sounds. NEUROLOGICAL: No headaches, no weakness, no numbness. HEMATOLOGICAL: Denies any bleeding or petechiae. GENITOURINARY: Denies any burning micturition, frequency, or urgency. MUSCULOSKELETAL/RHEUMATOLOGICAL: Denies any joint pain, swelling, or any muscle pain. ENDOCRINE: Denies any polyuria or polydipsia. Past Medical History Additional Past Medical History / Comment(s): Parkinsons disease, detached retina History of Any Multi-Drug Resistant Organisms: MRSA Date of last positivie culture/infection: 11/03/21 MDRO Source:: Urine Additional Past Surgical History / Comment(s): Feeding tube placed, Past Psychological History: No Psychological Hx Reported Smoking Status: Never smoker Past Alcohol Use History: None Reported Past Drug Use History: None Reported Medications and Allergies Home Medications Medication Instructions Recorded Confirmed Type ALPRAZolam [Xanax] 0.5 mg PO 5XD PRN 01/15/18 12/11/21 History Levothyroxine Sodium [Synthroid] 125 mcg PO DAILY 08/04/20 12/11/21 History Cyanocobalamin [Vitamin B-12] 1,000 mcg PO DAILY tab 08/15/20 12/11/21 Rx amantadine HCL [Amantadine] 100 mg PO BID #60 capsule 08/15/20 12/11/21 Rx Carbidopa-Levodopa 10-100 mg 1 tab PO 5XD PRN 12/11/21 12/11/21 History [Sinemet 10-100 mg] Carbidopa/Levodopa [Duopa 4.63 1.1 ml PEG/G-TUBE DIRECTED PRN 12/11/21 12/11/21 History mg-20 mg/ml Susp] Carbidopa/Levodopa [Duopa 4.63 1.9 ml PEG/G-TUBE DIRECTED 12/11/21 12/11/21 History mg-20 mg/ml Susp] Cholecalciferol (Vitamin D3) 125 mcg PO DAILY 12/11/21 12/11/21 History [Vitamin D3 (125 MCG = 5,000 IU)] Tolterodine ER [Detrol LA] 4 mg PO DAILY 12/11/21 12/11/21 History cycloSPORINE 0.05% OPHTH SOLN 1 drop BOTH EYES DIRECTED PRN 12/11/21 12/11/21 History [Restasis] Allergies Allergy/AdvReac Type Severity Reaction Status Date / Time Sulfa (Sulfonamide Allergy Unknown Verified 12/11/21 10:02 Antibiotics) Physical Exam Vitals: Vital Signs Temp Pulse Resp BP Pulse Ox 12/11/21 10:58 86 16 115/60 96 12/11/21 09:54 98 F 98 18 116/67 91 L Intake and Output 12/10/21 12/11/21 12/11/21 22:59 06:59 14:59 Other: Voiding Method Indwelling Catheter Weight 79.379 kg -GENERAL: The patient is alert and oriented x3, not in any acute distress. Well developed, well nourished. Drowsy HEENT: Pupils are round and equally reacting to light. EOMI. No scleral icterus. No conjunctival pallor. Normocephalic, atraumatic. No pharyngeal erythema. No thyromegaly. CARDIOVASCULAR: S1 and S2 present. No murmurs, rubs, or gallops. PULMONARY: Chest is clear to auscultation, no wheezing or crackles. -ABDOMEN: Soft, nontender, nondistended, normoactive bowel sounds. No palpable organomegaly. Indwelling catheter MUSCULOSKELETAL: No joint swelling or deformity. EXTREMITIES: No cyanosis, clubbing, or pedal edema. NEUROLOGICAL: Gross neurological examination did not reveal any focal deficits. SKIN: No rashes. no petechiae. Results CBC & Chem 7: 12/11/21 10:16 12/11/21 10:16 Labs: Abnormal Lab Results - Last 24 Hours (Table) 12/11/21 12/11/21 12/11/21 Range/Units 10:16 10:16 10:16 WBC 15.3 H (3.8-10.6) k/uL RBC 4.28 L (4.30-5.90) m/uL MCV 102.3 H (80.0-100.0) fL Neutrophils # 13.2 H (1.3-7.7) k/uL Sodium 136 L (137-145) mmol/L BUN 29 H (9-20) mg/dL Glucose 123 H (74-99) mg/dL Alkaline Phosphatase 135 H (38-126) U/L Total Protein 6.0 L (6.3-8.2) g/dL Albumin 3.4 L (3.5-5.0) g/dL Urine Protein 2+ H (Negative) Urine Ketones Trace H (Negative) Urine Blood Small H (Negative) Ur Leukocyte Esterase Large H (Negative) Urine RBC 33 H (0-5) /hpf Urine WBC >182 H (0-5) /hpf Urine WBC Clumps Few H (None) /hpf Hyaline Casts 10 H (0-2) /lpf Urine Mucus Many H (None) /hpf Assessment and Plan Assessment: Acute urinary tract infection Metabolic encephalopathy and generalized weakness secondary to above Urinary retention status post indwelling Clayton catheter 1 year Parkinson disease history of dysphagia, possibly secondary to his neurological illness and Parkinson disease status post PEG History of detached retina Patient was started on IV vancomycin and given 1 dose of Zosyn and infectious disease consulted Plan: This is a pleasant 72 years old male with Parkinson disease and urinary retention presents with UTI Continue with antibiotics Infectious service consult Dr. Campo consult Labs and medication were reviewed.. Continue same treatment. Continue with symptomatic treatment. Resume home medication. Monitor lytes and vitals. DVT and GI prophylaxis. Further recommendations as per clinical course of the patient DVT prophylaxis: Subcutaneous heparin GI Prophylaxis: Pepcid PT/OT: Pending Prognosis is guarded Dr. Canseco will resume the care of the patient tomorrow
[2021-12-11] MEDS: SODIUM CHLORIDE 0.9% 1,000 ML IV SCH ×2 (17:07→18:04)
--- NOTE | 2021-12-11 18:19 | P.GSCN ---
History of Present Illness Consult date: 12/11/21 Reason for Consult: Urinary retention, UTI Requesting physician: Aleks E Sheet History of present illness: The patient is a 71-year-old white male with progressive Parkinson's disease. A Clayton catheter was placed over a year ago for urinary retention, and according to his he failed voiding trials. Therefore, his ongoing urinary retention has been managed with an indwelling Clayton catheter, last changed on 12/08/2019. He is now admitted with generalized weakness. He recently had his feeding tube replaced, but this took approximately 2 weeks and there may be an element of malnutrition as a result of this. Per the patient's , he has recently experienced lower abdominal cramping, the etiology of which is unclear. She has also noted sediment in the urine. Cultures earlier this summer have shown josse ymicrobial results. Klebsiella pneumoniae and Pseudomonas aeruginosa were both seen on cultures in September and October. The most recent culture on record was from November, showing Val. He has recently been treated with multiple antibiotics, including ciprofloxacin and Diflucan. Review of Systems - Constitutional Reports weakness, Denies chills, Denies fever - Cardiovascular Denies chest pain - Respiratory Denies dyspnea - Gastrointestinal Denies nausea, Denies vomiting Past Medical History Additional Past Medical History / Comment(s): Parkinsons disease, detached retina, deep brain stimulator inserted at [facility] in [place], indwelling catheter (last changed 12/07/2021) History of Any Multi-Drug Resistant Organisms: MRSA Year Discovered:: 11/03/21 MDRO Source:: Urine Additional Past Surgical History / Comment(s): Feeding tube placed, deep brain stimulator inserted Past Anesthesia/Blood Transfusion Reactions: No Reported Reaction Smoking Status: Never smoker Medications and Allergies Home Medications Medication Instructions Recorded Confirmed Type ALPRAZolam [Xanax] 0.5 mg PO 5XD PRN 01/15/18 12/11/21 History Levothyroxine Sodium [Synthroid] 125 mcg PO DAILY 08/04/20 12/11/21 History Cyanocobalamin [Vitamin B-12] 1,000 mcg PO DAILY tab 08/15/20 12/11/21 Rx amantadine HCL [Amantadine] 100 mg PO BID #60 capsule 08/15/20 12/11/21 Rx Carbidopa-Levodopa 10-100 mg 1 tab PO 5XD PRN 12/11/21 12/11/21 History [Sinemet 10-100 mg] Carbidopa/Levodopa [Duopa 4.63 1.1 ml PEG/G-TUBE DIRECTED PRN 12/11/21 12/11/21 History mg-20 mg/ml Susp] Carbidopa/Levodopa [Duopa 4.63 1.9 ml PEG/G-TUBE DIRECTED 12/11/21 12/11/21 History mg-20 mg/ml Susp] Cholecalciferol (Vitamin D3) 125 mcg PO DAILY 12/11/21 12/11/21 History [Vitamin D3 (125 MCG = 5,000 IU)] Tolterodine ER [Detrol LA] 4 mg PO DAILY 12/11/21 12/11/21 History cycloSPORINE 0.05% OPHTH SOLN 1 drop BOTH EYES DIRECTED PRN 12/11/21 12/11/21 History [Restasis] Allergies Allergy/AdvReac Type Severity Reaction Status Date / Time Sulfa (Sulfonamide Allergy Unknown Verified 12/11/21 10:02 Antibiotics) Surgical - Exam Vital Signs Temp Pulse Resp BP Pulse Ox 98 F 98 18 116/67 91 L 12/11/21 09:54 12/11/21 09:54 12/11/21 09:54 12/11/21 09:54 12/11/21 09:54 - General well developed, well nourished, no distress - Respiratory normal respiratory effort - Abdomen Abdomen: soft, non tender, no guarding, no rigid, no rebound - Genitourinary normal penis with no external lesions, testicles non-tender - Psychiatric oriented to time, oriented to person, oriented to place, speech is normal, memory intact Results - Labs 12/11/21 10:16 12/11/21 10:16 Abnormal Lab Results - Last 24 Hours (Table) 12/11/21 12/11/21 12/11/21 Range/Units 10:16 10:16 10:16 WBC 15.3 H (3.8-10.6) k/uL RBC 4.28 L (4.30-5.90) m/uL MCV 102.3 H (80.0-100.0) fL Neutrophils # 13.2 H (1.3-7.7) k/uL Sodium 136 L (137-145) mmol/L BUN 29 H (9-20) mg/dL Glucose 123 H (74-99) mg/dL Alkaline Phosphatase 135 H (38-126) U/L Total Protein 6.0 L (6.3-8.2) g/dL Albumin 3.4 L (3.5-5.0) g/dL Urine Protein 2+ H (Negative) Urine Ketones Trace H (Negative) Urine Blood Small H (Negative) Ur Leukocyte Esterase Large H (Negative) Urine RBC 33 H (0-5) /hpf Urine WBC >182 H (0-5) /hpf Urine WBC Clumps Few H (None) /hpf Hyaline Casts 10 H (0-2) /lpf Urine Mucus Many H (None) /hpf Diabetes panel 12/11/21 Range/Units 10:16 Sodium 136 L (137-145) mmol/L Potassium 4.5 (3.5-5.1) mmol/L Chloride 102 (98-107) mmol/L Carbon Dioxide 24 (22-30) mmol/L BUN 29 H (9-20) mg/dL Creatinine 1.20 (0.66-1.25) mg/dL Glucose 123 H (74-99) mg/dL Calcium 8.7 (8.4-10.2) mg/dL AST 24 (17-59) U/L ALT <6 (4-49) U/L Alkaline Phosphatase 135 H (38-126) U/L Total Protein 6.0 L (6.3-8.2) g/dL Albumin 3.4 L (3.5-5.0) g/dL Calcium panel 12/11/21 Range/Units 10:16 Calcium 8.7 (8.4-10.2) mg/dL Albumin 3.4 L (3.5-5.0) g/dL Pituitary panel 12/11/21 Range/Units 10:16 Sodium 136 L (137-145) mmol/L Potassium 4.5 (3.5-5.1) mmol/L Chloride 102 (98-107) mmol/L Carbon Dioxide 24 (22-30) mmol/L BUN 29 H (9-20) mg/dL Creatinine 1.20 (0.66-1.25) mg/dL Glucose 123 H (74-99) mg/dL Calcium 8.7 (8.4-10.2) mg/dL Adrenal panel 09/05/22 Range/Units 10:16 Sodium 136 L (137-145) mmol/L Potassium 4.5 (3.5-5.1) mmol/L Chloride 102 (98-107) mmol/L Carbon Dioxide 24 (22-30) mmol/L BUN 29 H (9-20) mg/dL Creatinine 1.20 (0.66-1.25) mg/dL Glucose 123 H (74-99) mg/dL Calcium 8.7 (8.4-10.2) mg/dL Total Bilirubin 0.7 (0.2-1.3) mg/dL AST 24 (17-59) U/L ALT <6 (4-49) U/L Alkaline Phosphatase 135 H (38-126) U/L Total Protein 6.0 L (6.3-8.2) g/dL Albumin 3.4 L (3.5-5.0) g/dL Assessment and Plan (1) Urinary retention Current Visit: Yes Status: Acute Code(s): R33.9 - RETENTION OF URINE, UNSPECIFIED SNOMED Code(s): 738586849 Plan: As stated, the patient has a chronic indwelling Clayton catheter to manage his urinary retention. Cultures have shown polymicrobial results, consistent with colonization. I would suggest this only be treated when the patient is symptomatic. He has recently experienced lower abdominal cramping, and lab values show evidence of leukocytosis. It cannot be determined whether either of these findings are due to a UTI. A urine culture is pending. In the meantime, it would be reasonable to treat him with broad-spectrum antibiotics. He is currently receiving vancomycin, which would be effective in treating the MRSA found on urine culture in late October but would not otherwise provide coverage for urinary tract aditi. Time with Patient: Greater than 30
[2021-12-12] MEDS: SODIUM CHLORIDE 0.9% 1,000 ML IV SCH ×3 (02:10→22:03)
[2021-12-12] MEDS: VANCOMYCIN 1,500 MG in SODIUM CHLORIDE 0.9% 250 ML IVPB SCH ×2 (05:48→22:00)
[2021-12-12 10:55] LABS: Basophils # (A) 0.04 X 10*3/uL (0.00-0.10); Basophils % (A) 0.4 %; Eosinophils # (A) 0.19 X 10*3/uL (0.04-0.35); HCT 37.4 % (39.6-50.0); HGB 12.5 g/dL (13.0-17.0); Immature Grans, Automated 0.6 %; Lymphocytes % (A) 9.4 %; MCH 34.4 pg (27.0-32.0); MCHC 33.4 g/dL (32.0-37.0); Mean Platelet Volume 11.3 fL (9.5-12.2); Monocytes # (A) 0.76 X 10*3/uL (0.20-1.00); NRBC Per 100 WBC 0 /100 WBCS (0.0-0.0); Neutrophils # (A) 7.59 X 10*3/uL (1.80-7.70); Neutrophils % (A) 79.6 %; Platelet Count 186 X 10*3/uL (140-440); RBC 3.63 X 10*6/uL (4.40-5.60); RDW 12.4 % (11.5-14.5); WBC 9.54 X 10*3/uL (4.50-10.00)
[2021-12-12 11:13] LABS: African American GFR (CKD) 83.7 (60.0-200.0); Anion Gap 8.9 mmol/L (10.00-18.00); BUN/Creat Ratio 18.45 Ratio (12.00-20.00); Calcium 8.3 mg/dL (8.7-10.3); Magnesium 2.1 mg/dL (1.5-2.4); Non-African American GFR(CKD) 72.2 (60.0-200.0); Potassium 4.7 mmol/L (3.5-5.5)
[2021-12-13] MEDS: SODIUM CHLORIDE 0.9% 1,000 ML IV SCH ×2 (02:45→12:13)
[2021-12-13] MEDS: OXYBUTYNIN XL 5 MG TAB.ER.24 PO SCH (06:49)
[2021-12-13] MEDS: LEVOTHYROXINE 125 MCG TAB PO SCH (06:49)
[2021-12-13] MEDS ORDERED: PIPERACILLIN-TAZOBACTAM 3.375 GM in SODIUM CHLORIDE 0.9% 100 ML IVPB SCH (08:30)
--- NOTE | 2021-12-13 09:59 | P.PN ---
Subjective Progress Note Date: 12/12/21 HISTORY OF PRESENT ILLNESS This is a 71-year-old male patient with past medical history of Parkinson's disease status post intrathecal dopamine pump, hypothyroidism, vitamin D defic iency, detached right retina, chronic neurogenic bladder with Mireles catheter, dysphagia status post PEG tube placement. His neurologist is Dr. Stallworth. Patient was brought into the emergency center due to generalized weakness, bladder cramps, constipation, he has been battling urinary tract infection under the care of Dr. Muir. Patient was diagnosed with acute urinary tract infection and started on IV antibiotics in the form of, seen by infectious disease and urology. Patient is currently on IV vancomycin as he had a MRSA urinary tract. Blood culture is in progress. REVIEW OF SYSTEMS Constitutional: No fever, no chills, no night sweats. No weight change. Noted generalized weakness, fatigue or lethargy. No daytime sleepiness. EENT: No headache. No blurred vision or double vision, no loss of vision. No loss of Hearing, no ringing in the ears, no dizziness. No nasal drainage or congestion. No epistaxis. No sore throat. Lungs: No shortness of breath, cough, no sputum production. No wheezing. Cardiovascular: No chest pain, no lower extremity edema. No palpitations. No paroxysmal nocturnal dyspnea. No orthopnea. No lightheadedness or dizziness. No syncopal episodes. Abdominal: No abdominal pain. No nausea, vomiting. No diarrhea. No const ipation. No bloody or tarry stools. No loss of appetite-chronic PEG. Genitourinary: No dysuria, increased frequency, urgency. Noted urinary retention with chronic mireles. Musculoskeletal: No myalgias. No muscle weakness, no gait dysfunction, no frequent falls. No back pain. No neck pain. Integumentary: No wounds, no lesions. No rash or pruritus. No unusual bruising. No change in hair or nails. Neurologic: No aphasia. No facial droop. No change in mentation. No head injury. No headache. No paralysis. No paresthesia. Psychiatric: No depression. No anxiety. No mood swings. Endocrine: No abnormal blood sugars. No weight change. No excessive sweating or thirst. No cold intolerance. PHYSICAL EXAMINATION Gen: This is a 71-year-old male patient resting in bed. He appears to be in no acute distress. HEENT: Head is atraumatic, normocephalic. Pupils round. Sclerae is anicteric. 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 Oral mucous membranes are dry. NECK: Supple. No JVD. No lymphadenopathy. No thyromegaly. LUNGS: Clear to auscultation. No wheezes or rhonchi. No intercostal retractions. HEART: Regular rate and rhythm. 2/6 systolic ejection murmur. ABDOMEN: Soft. Bowel sounds are present. No masses. No tenderness. PEG tube site with no signs of drainage, erythema. Mireles with radha urine and sediment. EXTREMITIES: No pedal edema. No calf tenderness. NEUROLOGICAL: Patient is awake, alert and oriented x3 and able to follow simple commands. Masklike face. Bilateral hand plastic roller strong and equal. ASSESSMENT AND PLAN 1. Acute mireles-catheter associated urinary tract infection. Patient is cont inued on Vancomycin pharmacy dosing, consult with infectious disease and urology. Urine culture and blood culture in progress. 2. Metabolic encephalopathy and generalized weakness secondary to UTI. Continue treatment in #1. 3. Parkinson's disease on dopamine pump. Continue amantadine 100 mg bid. Continue carbidopa levodopa via pump. 4. Moderate protein calorie malnutrition and risk for aspiration, chronic PEG tube. Dietitian consult to resume PEG tube feedings. 5. Hypothyroidism. Continue levothyroxine 125 g daily. 6. Vitamin D deficiency, stable. 7. Macrocytosis, chronic. 8. GI prophylaxis. Pepcid 20 mg daily per PEG tube. 8. DVT prophylaxis. Heparin subcu. 9. COVID-19 testing negative. Patient has been hospitalized during a pandemic. Objective - Vital Signs Vital signs: Vital Signs Temp 97.5 F L 12/13/21 05:00 Pulse 70 12/13/21 05:00 Resp 18 12/13/21 05:00 BP 118/67 12/13/21 05:00 Pulse Ox 92 L 12/13/21 05:00 FiO2 Intake & Output 12/12/21 12/13/21 12/13/21 18:59 06:59 18:59 Output Total 525 Balance -525 Output: Urine 525 Other: Voiding Method Indwelling Catheter Indwelling Catheter Indwelling Catheter # Bowel Movements 1 - Labs CBC & Chem 7: 12/12/21 07:09 12/12/21 07:09 Labs: Abnormal Lab Results - Last 24 Hours (Table) 12/12/21 12/12/21 Range/Units 07:09 07:09 RBC 3.63 L (4.40-5.60) X 10*6/uL Hgb 12.5 L (13.0-17.0) g/dL Hct 37.4 L (39.6-50.0) % MCV 103.0 H (80.0-97.0) fL MCH 34.4 H (27.0-32.0) pg Immature Gran # 0.06 H (0.00-0.04) X 10*3/uL Anion Gap 8.90 L (10.00-18.00) mmol/L Calcium 8.3 L (8.7-10.3) mg/dL Microbiology - Last 24 Hours (Table) 12/11/21 10:16 Urine Culture - Preliminary Urine,Voided Gram Neg Bacilli 12/11/21 12:04 Blood Culture - Preliminary Blood No Growth after 24 hours 12/11/21 11:47 Blood Culture - Preliminary Blood No Growth after 24 hours
[2021-12-13] MEDS ORDERED: CARBIDOPA PEG/G-TUBE PRN (11:27)
[2021-12-13] MEDS ORDERED: LEVODOPA PEG/G-TUBE PRN (11:27)
[2021-12-13] MEDS ORDERED: cycloSPORINE 0.05% OPHTH 0.4 ML DROPERETTE BOTH EYES PRN (11:27)
[2021-12-13] MEDS ORDERED: CARBIDOPA-LEVODOPA 10-100 MG 1 EACH TAB PO PRN (11:27)
[2021-12-13] MEDS: LEVODOPA PEG/G-TUBE SCH (12:12)
[2021-12-13] MEDS: CARBIDOPA PEG/G-TUBE SCH (12:12)
[2021-12-13 13:42] VITALS: BMI 25.1
--- NOTE | 2021-12-13 15:34 | P.CONS ---
History of Present Illness - Reason for Consult Consult date: 12/12/21 Urinary tract infection Requesting physician: Hector Cedillo - Chief Complaint Weakness not feeling well x few days - History of Present Illness Patient is a 71-year-old male with a past medical history significant for Parkinson disease patient he did have history retention requiring chronic indwelling Clayton catheter and also have a PEG tube placement for dysphagia patient has been brought to the hospital for evaluation of generalized weakness and apparently has been struggling with a UTI for the patient being monitored by his urologist the patient complaining of feeling weak tired and no energy also having difficulty walking and lower abdominal cramps on presentation to the hospital the patient was afebrile and no fever have been recorded subsequently he did have white count 15.3 with a left shift kidney function has been normal exams are normal he did have a positive UA with large leukocyte esterase more than 22 WBC cultures are currently pending patient has been started on Zosyn infectious disease was consulted for further management of antibiotic therapy Review of Systems Positive point has been mentioned in the HPI rest of the systems are negative Past Medical History Additional Past Medical History / Comment(s): Parkinsons disease, detached retina, deep brain stimulator inserted at [facility] in [place], indwelling catheter (last changed 12/07/2021) History of Any Multi-Drug Resistant Organisms: MRSA Year Discovered:: 11/03/21 MDRO Source:: Urine Additional Past Surgical History / Comment(s): Feeding tube placed, deep brain stimulator inserted Past Anesthesia/Blood Transfusion Reactions: No Reported Reaction Smoking Status: Never smoker Medications and Allergies Home Medications Medication Instructions Recorded Confirmed Type ALPRAZolam [Xanax] 0.5 mg PO 5XD PRN 01/15/18 12/11/21 History Levothyroxine Sodium [Synthroid] 125 mcg PO DAILY 08/04/20 12/11/21 History Cyanocobalamin [Vitamin B-12] 1,000 mcg PO DAILY tab 08/15/20 12/11/21 Rx amantadine HCL [Amantadine] 100 mg PO BID #60 capsule 08/15/20 12/11/21 Rx Carbidopa-Levodopa 10-100 mg 1 tab PO 5XD PRN 12/11/21 12/11/21 History [Sinemet 10-100 mg] Carbidopa/Levodopa [Duopa 4.63 1.1 ml PEG/G-TUBE DIRECTED PRN 12/11/21 12/11/21 History mg-20 mg/ml Susp] Carbidopa/Levodopa [Duopa 4.63 1.9 ml PEG/G-TUBE DIRECTED 12/11/21 12/11/21 History mg-20 mg/ml Susp] Cholecalciferol (Vitamin D3) 125 mcg PO DAILY 12/11/21 12/11/21 History [Vitamin D3 (125 MCG = 5,000 IU)] Tolterodine ER [Detrol LA] 4 mg PO DAILY 12/11/21 12/11/21 History cycloSPORINE 0.05% OPHTH SOLN 1 drop BOTH EYES DIRECTED PRN 12/11/21 12/11/21 History [Restasis] Allergies Allergy/AdvReac Type Severity Reaction Status Date / Time Sulfa (Sulfonamide Allergy Unknown Verified 12/11/21 10:02 Antibiotics) Physical Exam Vitals: Vital Signs Temp Pulse Pulse Resp BP BP Pulse Ox 12/12/21 04:36 97.6 F 76 18 127/71 96 12/11/21 20:00 18 12/11/21 18:06 97.5 F L 82 18 109/71 96 12/11/21 15:35 97.3 F L 58 L 18 129/64 97 12/11/21 13:48 84 18 110/60 96 12/11/21 12:19 86 18 111/64 97 Intake and Output 12/11/21 12/12/21 12/12/21 22:59 06:59 14:59 Intake Total 250 1750 Output Total 500 525 Balance -250 1225 Intake: Intake, IV Titration 250 1750 Amount Sodium Chloride 0.9% 1, 1500 000 ml @ 130 mls/hr IV . [id number] JONO Rx#:[id number] Vancomycin 1,500 mg In 250 250 Sodium Chloride 0.9% 250 ml @ 125 mls/hr IVPB Q16H JONO Rx#:[id number] Output: Urine 500 525 Other: Voiding Method Indwelling Catheter Indwelling Catheter Weight 79.379 kg GENERAL DESCRIPTION: Elderly male lying in bed, no distress. No tachypnea or accessory muscle of respiration use. HEENT: Shows Pallor , no scleral icterus. Oral mucous membrane is dry. No pharyngeal erythema or thrush NECK: Trachea central, no thyromegaly. LUNGS: Unlabored breathing. Clear to auscultation anteriorly. No wheeze or crackle. HEART: S1, S2, regular rate and rhythm. No loud murmur ABDOMEN: Soft, no tenderness , guarding or rigidity, no organomegaly EXTREMITIES: No edema of feet. SKIN: No rash, no masses palpable. NEUROLOGICAL: The patient is awake, alert, oriented x3, mood and affect normal. Results CBC & Chem 7: 12/12/21 07:09 12/15/21 05:41 Labs: Abnormal Lab Results - Last 24 Hours (Table) 12/12/21 12/12/21 Range/Units 07:09 07:09 RBC 3.63 L (4.40-5.60) X 10*6/uL Hgb 12.5 L (13.0-17.0) g/dL Hct 37.4 L (39.6-50.0) % MCV 103.0 H (80.0-97.0) fL MCH 34.4 H (27.0-32.0) pg Immature Gran # 0.06 H (0.00-0.04) X 10*3/uL Anion Gap 8.90 L (10.00-18.00) mmol/L Calcium 8.3 L (8.7-10.3) mg/dL Microbiology - Last 24 Hours (Table) 12/11/21 10:16 Urine Culture - Preliminary Urine,Voided Assessment and Plan (1) UTI (urinary tract infection) Status: Acute Code(s): N39.0 - URINARY TRACT INFECTION, SITE NOT SPECIFIED SNOMED Code(s): 71056601 Plan: 1patient presented to hospital with weakness did have elevated white count in this patient with a chronic indwelling Clayton catheter and history of recurrent UTI likely representing an episode of symptomatic urinary tract infection catheter associated. 2Foley catheter needs to be changed and obtain urine culture from the new Clayton. 3patient to continue with Zosyn while waiting for the culture to finalize the last urine culture positive for Pseudomonas and Klebsiella we will follow on clinical condition and cultures to further adjust medication if needed Thank you for this consultation will follow this patient along with you Time with Patient: Greater than 30
--- NOTE | 2021-12-13 15:37 | P.PN ---
Subjective Progress Note Date: 12/13/21 Principal diagnosis: CAUTI Patient is a 71-year old male with multiple comorbidity including urine retention requiring chronic indwelling Clayton catheter [facility] with weakness and concerning for a symptomatic urinary tract infection catheter associated. On today's evaluation that is 12/13/2021, the patient denies having any fever or any chills, the patient slightly more awake and alert today he is breathing comfortably no chest pain shortness of the cough and abdominal pain no diarrhea Objective - Vital Signs Vital signs: Vital Signs Temp 98.4 F 12/13/21 11:15 Pulse 72 12/13/21 11:15 Resp 18 12/13/21 11:15 BP 116/68 12/13/21 11:15 Pulse Ox 91 L 12/13/21 11:15 FiO2 Intake & Output 12/12/21 12/13/21 12/13/21 18:59 06:59 18:59 Output Total 525 300 Balance -525 -300 Weight 79.379 kg Output: Urine 525 300 Uretheral (Clayton) 300 Other: Voiding Method Indwelling Catheter Indwelling Catheter Indwelling Catheter # Bowel Movements 1 1 - Exam GENERAL DESCRIPTION: Elderly male lying in bed, no distress. No tachypnea or accessory muscle of respiration use. LUNGS: Unlabored breathing. decreased breath sounds at the base HEART: S1, S2, regular rate and rhythm. No loud murmur ABDOMEN: Soft, no tenderness , guarding or rigidity, no organomegaly EXTREMITIES: No edema of feet. - Labs CBC & Chem 7: 12/12/21 07:09 12/12/21 07:09 Labs: Microbiology - Last 24 Hours (Table) 12/11/21 12:04 Blood Culture - Preliminary Blood No Growth after 48 hours 12/11/21 11:47 Blood Culture - Preliminary Blood No Growth after 48 hours 12/11/21 10:16 Urine Culture - Preliminary Urine,Voided Gram Neg Bacilli Assessment and Plan (1) UTI (urinary tract infection) Current Visit: Yes Status: Acute Code(s): N39.0 - URINARY TRACT INFECTION, SITE NOT SPECIFIED SNOMED Code(s): 50869613 Plan: 1patient presented hospital with generalized weakness in this patient with a chronic indwelling Clayton catheter with concern for catheter associated tract infection and the current catheter was changed on December 07 per the nursing staff. 2patient urine cultures currently growing gram-negative with a last urine culture positive for Pseudomonas and Klebsiella. 3discontinue Zosyn start the patient cefepime while waiting for the culture to finalize Time with Patient: Greater than 30
[2021-12-13] MEDS: CEFEPIME 2 GM in SODIUM CHLORIDE 0.9% 100 ML IVPB SCH (15:52)
[2021-12-13] MEDS: HEPARIN SODIUM,PORCINE/PF 5,000 UNIT/0.5 ML SYRINGE SQ SCH (15:53)
--- NOTE | 2021-12-13 16:08 | P.PN ---
Subjective Progress Note Date: 12/13/21 HISTORY OF PRESENT ILLNESS This is a 71-year-old male patient with past medical history of Parkinson's disease status post intrathecal dopamine pump, hypothyroidism, vitamin D defic iency, detached right retina, chronic neurogenic bladder with Mireles catheter, dysphagia status post PEG tube placement. His neurologist is Dr. Stallworth. Patient was brought into the emergency center due to generalized weakness, bladder cramps, constipation, he has been battling urinary tract infection under the care of Dr. Muir. Patient was diagnosed with acute urinary tract infection and started on IV antibiotics in the form of, seen by infectious disease and urology. Patient is currently on IV vancomycin as he had a MRSA urinary tract. Blood culture is in progress. 12/13: Urine culture is positive for gram-negative bacilli and antibiotics will be changed from Vancomycin to Zosyn and again changed to Cefepime per Dr Montalvo. Patient remains afebrile, heart rate 72, blood pressure 116/60, pulse ox 91-94% on room air. Waiting for urine culture to finalize. REVIEW OF SYSTEMS Constitutional: No fever, no chills, no night sweats. No weight change. Noted generalized weakness, fatigue or lethargy. No daytime sleepiness. EENT: No headache. No blurred vision or double vision, no loss of vision. No loss of Hearing, no ringing in the ears, no dizziness. No nasal drainage or congestion. No epistaxis. No sore throat. Lungs: No shortness of breath, cough, no sputum production. No wheezing. Cardiovascular: No chest pain, no lower extremity edema. No palpitations. No paroxysmal nocturnal dyspnea. No orthopnea. No lightheadedness or dizziness. No syncopal episodes. Abdominal: No abdominal pain. No nausea, vomiting. No diarrhea. No constipation. No bloody or tarry stools. No loss of appetite-chronic PEG. Genitourinary: No dysuria, increased frequency, urgency. Noted urinary retention with chronic mireles. Musculoskeletal: No myalgias. No muscle weakness, no gait dysfunction, no frequent falls. No back pain. No neck pain. Integumentary: No wounds, no lesions. No rash or pruritus. No unusual bruising. No change in hair or nails. Neurologic: No aphasia. No facial droop. No change in mentation. No head injury. No headache. No paralysis. No paresthesia. Psychiatric: No depression. No anxiety. No mood swings. Endocrine: No abnormal blood sugars. No weight change. No excessive sweating or thirst. No cold intolerance. PHYSICAL EXAMINATION Gen: This is a 71-year-old male patient resting in bed. He appears to be in no acute distress. HEENT: Head is atraumatic, normocephalic. Pupils round. Sclerae is anicteric. 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 Oral mucous membranes are dry. NECK: Supple. No JVD. No lymphadenopathy. No thyromegaly. LUNGS: Clear to auscultation. No wheezes or rhonchi. No intercostal retractions. HEART: Regular rate and rhythm. 2/6 systolic ejection murmur. ABDOMEN: Soft. Bowel sounds are present. No masses. No tenderness. PEG tube site with no signs of drainage, erythema. Mireles with radha urine and sediment. EXTREMITIES: No pedal edema. No calf tenderness. NEUROLOGICAL: Patient is awake, alert and oriented x3 and able to follow simple commands. Masklike face. Bilateral hand commercial stripper strong and equal. ASSESSMENT AND PLAN 1. Acute mireles-catheter associated urinary tract infection. Patient is continued on Vancomycin pharmacy dosing, changed to cefepime, consult with infectious disease and urology. Urine culture and blood culture in progress. 2. Metabolic encephalopathy and generalized weakness secondary to UTI. Continue treatment in #1. 3. Parkinson's disease on dopamine pump. Continue amantadine 100 mg bid. Continue carbidopa levodopa at home dosing. 4. Moderate protein calorie malnutrition and risk for aspiration, chronic PEG tube. Dietitian consult to resume PEG tube feedings. 5. Hypothyroidism. Continue levothyroxine 125 g daily. 6. Vitamin D deficiency, stable. 7. Macrocytosis, chronic. 8. GI prophylaxis. Pepcid 20 mg daily per PEG tube. 8. DVT prophylaxis. Heparin subcu. DISCHARGE PLAN Subacute rehab at [facility] in the [facility] Impression and plan of care have been directed as dictated by the signing physician. Sofía Kulkarni nurse practitioner acting as scribe for signing physician. Objective - Vital Signs Vital signs: Vital Signs Temp 98.4 F 12/13/21 11:15 Pulse 72 09/07/22 11:15 Resp 18 12/13/21 11:15 BP 116/68 12/13/21 11:15 Pulse Ox 91 L 12/13/21 11:15 FiO2 Intake & Output 12/12/21 12/13/21 12/13/21 18:59 06:59 18:59 Output Total 525 Balance -525 Output: Urine 525 Other: Voiding Method Indwelling Catheter Indwelling Catheter Indwelling Catheter # Bowel Movements 1 - Labs CBC & Chem 7: 12/12/21 07:09 12/12/21 07:09 Labs: Microbiology - Last 24 Hours (Table) 12/11/21 10:16 Urine Culture - Preliminary Urine,Voided Gram Neg Bacilli 12/11/21 12:04 Blood Culture - Preliminary Blood No Growth after 24 hours 12/11/21 11:47 Blood Culture - Preliminary Blood No Growth after 24 hours
[2021-12-14] MEDS: CEFEPIME 2 GM in SODIUM CHLORIDE 0.9% 100 ML IVPB SCH ×4 (01:10→23:16)
[2021-12-14] MEDS: HEPARIN SODIUM,PORCINE/PF 5,000 UNIT/0.5 ML SYRINGE SQ SCH ×4 (01:10→23:15)
[2021-12-14] MEDS: SODIUM CHLORIDE 0.9% 1,000 ML IV SCH ×2 (01:18→06:29)
[2021-12-14] MEDS: LEVOTHYROXINE 125 MCG TAB PO SCH (06:29)
[2021-12-14] MEDS ORDERED: LEVOTHYROXINE 125 MCG TAB PO SCH (06:30)
[2021-12-14] MEDS: OXYBUTYNIN XL 5 MG TAB.ER.24 PO SCH (06:35)
[2021-12-14] MEDS ORDERED: NON FORMULARY DRUG (Tolterodine Er 4 MG Cap.Er.24h) PO SCH (09:00)
[2021-12-14] MEDS ORDERED: FAMOTIDINE 20 MG TAB PEG/G-TUBE SCH (09:00)
[2021-12-14] MEDS: CYANOCOBALAMIN 500 MCG TAB PO SCH (09:21)
[2021-12-14] MEDS: FAMOTIDINE 20 MG TAB PO SCH (09:22)
[2021-12-14] MEDS: CHOLECALCIFEROL 125 MCG (5000 IU) TABLET PO SCH (09:22)
[2021-12-14] MEDS: CARBIDOPA PEG/G-TUBE SCH (10:43)
[2021-12-14] MEDS: LEVODOPA PEG/G-TUBE SCH (10:43)
--- NOTE | 2021-12-14 13:51 | P.PN ---
Subjective Progress Note Date: 12/14/21 HISTORY OF PRESENT ILLNESS This is a 71-year-old male patient with past medical history of Parkinson's disease status post intrathecal dopamine pump, hypothyroidism, vitamin D defic iency, detached right retina, chronic neurogenic bladder with Mireles catheter, dysphagia status post PEG tube placement. His neurologist is Dr. Stallworth. Patient was brought into the emergency center due to generalized weakness, bladder cramps, constipation, he has been battling urinary tract infection under the care of Dr. Muir. Patient was diagnosed with acute urinary tract infection and started on IV antibiotics in the form of, seen by infectious disease and urology. Patient is currently on IV vancomycin as he had a MRSA urinary tract. Blood culture is in progress. 12/13: Urine culture is positive for gram-negative bacilli and antibiotics will be changed from Vancomycin to Zosyn and again changed to Cefepime per Dr Montalvo. Patient remains afebrile, heart rate 72, blood pressure 116/60, pulse ox 91-94% on room air. Waiting for urine culture to finalize. 12/14: Urine cultures now showing Pseudomonas and presumptive staph aureus. Blood culture no growth at 48 hours 2 specimens. Patient is continued on cefepime. Patient has been afebrile, heart rate 87, blood pressure 159/74, pulse ox 92% on room air. IV fluids discontinued. Anticipate that urine culture will be finalized tomorrow and most likely plan for discharge tomorrow to subacute rehab. REVIEW OF SYSTEMS Constitutional: No fever, no chills, no night sweats. No weight change. Noted generalized weakness, fatigue or lethargy. No daytime sleepiness. EENT: No headache. No blurred vision or double vision, no loss of vision. No loss of Hearing, no ringing in the ears, no dizziness. No nasal drainage or congestion. No epistaxis. No sore throat. Lungs: No shortness of breath, cough, no sputum production. No wheezing. Cardiovascular: No chest pain, no lower extremity edema. No palpitations. No paroxysmal nocturnal dyspnea. No orthopnea. No lightheadedness or dizziness. No syncopal episodes. Abdominal: No abdominal pain. No nausea, vomiting. No diarrhea. No constipation. No bloody or tarry stools. No loss of appetite-chronic PEG. Genitourinary: No dysuria, increased frequency, urgency. Noted urinary retention with chronic mireles. Musculoskeletal: No myalgias. No muscle weakness, no gait dysfunction, no frequent falls. No back pain. No neck pain. Integumentary: No wounds, no lesions. No rash or pruritus. No unusual bruising. No change in hair or nails. Neurologic: No aphasia. No facial droop. No change in mentation. No head injury. No headache. No paralysis. No paresthesia. Psychiatric: No depression. No anxiety. No mood swings. Endocrine: No abnormal blood sugars. No weight change. No excessive sweating or thirst. No cold intolerance. PHYSICAL EXAMINATION Gen: This is a 71-year-old male patient resting in recliner. He appears to be in no acute distress. HEENT: Head is atraumatic, normocephalic. Pupils round. Sclerae is anicteric. 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 Oral mucous membranes are dry. NECK: Supple. No JVD. No lymphadenopathy. No thyromegaly. LUNGS: Clear to auscultation. No wheezes or rhonchi. No intercostal retractions. HEART: Regular rate and rhythm. 2/6 systolic ejection murmur. ABDOMEN: Soft. Bowel sounds are present. No masses. No tenderness. PEG tube site with no signs of drainage, erythema. Mireles with radha urine and sediment. EXTREMITIES: No pedal edema. No calf tenderness. NEUROLOGICAL: Patient is awake, alert and oriented x3 and able to follow simple commands. Masklike face. Bilateral hand top collar maker strong and equal. ASSESSMENT AND PLAN 1. Acute mireles-catheter associated urinary tract infection. Patient is continued on cefepime, consult with infectious disease and urology. Urine culture and blood culture in progress. 2. Metabolic encephalopathy and generalized weakness secondary to UTI. Continue treatment in #1. 3. Parkinson's disease on dopamine pump. Continue amantadine 100 mg bid. Continue carbidopa levodopa at home dosing. 4. Moderate protein calorie malnutrition and risk for aspiration, chronic PEG tube. Dietitian consult to resume PEG tube feedings. 5. Hypothyroidism. Continue levothyroxine 125 g daily. 6. Vitamin D deficiency, stable. 7. Macrocytosis, chronic. 8. GI prophylaxis. Pepcid 20 mg daily per PEG tube. 8. DVT prophylaxis. Heparin subcu. DISCHARGE PLAN Subacute rehab at [facility] on the [place] [facility] Impression and plan of care have been directed as dictated by the signing physician. Sofía Kulkarni nurse practitioner acting as scribe for signing physician. Objective - Vital Signs Vital signs: Vital Signs Temp 98.5 F 12/14/21 05:00 Pulse 87 12/14/21 05:00 Resp 16 12/14/21 05:00 BP 159/74 12/14/21 05:00 Pulse Ox 92 L 12/14/21 05:00 FiO2 Intake & Output 12/13/21 12/14/21 12/14/21 18:59 06:59 18:59 Output Total 300 650 Balance -300 -650 Weight 79.379 kg 84 kg Output: Urine 300 650 Uretheral (Mireles) 300 Other: Voiding Method Indwelling Catheter Indwelling Catheter # Bowel Movements 1 1 - Labs CBC & Chem 7: 12/12/21 07:09 12/12/21 07:09 Labs: Microbiology - Last 24 Hours (Table) 12/11/21 10:16 Urine Culture - Preliminary Urine,Voided Pseudomonas aeruginosa Presumptive Staph aureus 12/11/21 12:04 Blood Culture - Preliminary Blood No Growth after 48 hours 12/11/21 11:47 Blood Culture - Preliminary Blood No Growth after 48 hours
[2021-12-14 20:24] VITALS: PULSE 82
[2021-12-14] MEDS ORDERED: VANCOMYCIN 1,500 MG in SODIUM CHLORIDE 0.9% 250 ML IVPB ONE (23:45)
[2021-12-14] MEDS ORDERED: VANCOMYCIN IV PER PHARMACY 1 EACH MISC MISCELLANE PRN (23:48)
--- NOTE | 2021-12-14 23:51 | P.PN ---
Subjective Progress Note Date: 12/14/21 Principal diagnosis: CAUTI Patient is a 71-year old male with multiple comorbidity including urine retention requiring chronic indwelling Clayton catheter [facility] with weakness and concerning for a symptomatic urinary tract infection catheter associated. On today's evaluation that is 12/14/2021, the patient is afebrile, the patient is more awake and alert , Pt is breathing comfortably no chest pain shortness of the cough and abdominal pain no diarrhea Objective - Vital Signs Vital signs: Vital Signs Temp 98.5 F 12/14/21 05:00 Pulse 87 12/14/21 05:00 Resp 16 12/14/21 05:00 BP 159/74 12/14/21 05:00 Pulse Ox 92 L 12/14/21 05:00 FiO2 Intake & Output 12/13/21 12/14/21 12/14/21 18:59 06:59 18:59 Output Total 300 650 Balance -300 -650 Weight 79.379 kg 84 kg Output: Urine 300 650 Uretheral (Clayton) 300 Other: Voiding Method Indwelling Catheter Indwelling Catheter # Bowel Movements 1 1 - Exam GENERAL DESCRIPTION: Elderly male lying in bed, no distress. No tachypnea or ac cessory muscle of respiration use. LUNGS: Unlabored breathing. decreased breath sounds at the base HEART: S1, S2, regular rate and rhythm. No loud murmur ABDOMEN: Soft, no tenderness , guarding or rigidity, no organomegaly EXTREMITIES: No edema of feet. - Labs CBC & Chem 7: 12/12/21 07:09 12/12/21 07:09 Labs: Microbiology - Last 24 Hours (Table) 12/11/21 10:16 Urine Culture - Preliminary Urine,Voided Pseudomonas aeruginosa Presumptive Staph aureus 12/11/21 12:04 Blood Culture - Preliminary Blood No Growth after 48 hours 12/11/21 11:47 Blood Culture - Preliminary Blood No Growth after 48 hours Assessment and Plan (1) UTI (urinary tract infection) Current Visit: Yes Status: Acute Code(s): N39.0 - URINARY TRACT INFECTION, SITE NOT SPECIFIED SNOMED Code(s): 36962873 Plan: 1patient presented hospital with generalized weakness in this patient with a chronic indwelling Clayton catheter with concern for catheter associated tract infection and the current catheter was changed on December 07 per the nursing staff. 2patient urine cultures currently growing Pseudomonas and staph aureus sensitivity on staph aureus pending 3 the patient to continue with cefepime while waiting for the culture to finalize Time with Patient: Less than 30
[2021-12-15 02:59] LABS: Appearance,Urine Clear (Clear); Bilirubin,Urine Negative (Negative); Blood,Urine Negative (Negative); Color,Urine Light Yellow; Glucose,Urine (UA) Negative (Negative); Ketones,Urine Negative (Negative); Leukocyte Esterase,Urine Negative (Negative); Nitrite,Urine Negative (Negative); Protein,Urine Negative (Negative); Specific Gravity,Urine 1.015 (1.001-1.035); Urobilinogen,Urine <2.0 mg/dL (<2.0)
[2021-12-15 04:46] VITALS: BP 151/65; RESP 18; TEMP 98.4
[2021-12-15] MEDS: LEVOTHYROXINE 125 MCG TAB PO SCH (05:25)
[2021-12-15] MEDS: OXYBUTYNIN XL 5 MG TAB.ER.24 PO SCH (05:43)
[2021-12-15] MEDS: CEFEPIME 2 GM in SODIUM CHLORIDE 0.9% 100 ML IVPB SCH (08:07)
[2021-12-15] MEDS: HEPARIN SODIUM,PORCINE/PF 5,000 UNIT/0.5 ML SYRINGE SQ SCH (08:08)
[2021-12-15] MEDS: FAMOTIDINE 20 MG TAB PO SCH (08:09)
[2021-12-15] MEDS: CYANOCOBALAMIN 500 MCG TAB PO SCH (08:09)
[2021-12-15] MEDS: CHOLECALCIFEROL 125 MCG (5000 IU) TABLET PO SCH (08:09)
[2021-12-15] MEDS: CARBIDOPA PEG/G-TUBE SCH (08:11)
[2021-12-15] MEDS: LEVODOPA PEG/G-TUBE SCH (08:11)
[2021-12-15 09:28] LABS: African American GFR (CKD) 98.5 (60.0-200.0)
--- NOTE | 2021-12-15 09:49 | P.DS ---
Providers Date of admission: 12/11/21 11:07 Expected date of discharge: 12/15/21 Attending physician: Rose Noyola Consults: 12/11/21 11:07 Consult Physician Routine Consulting Provider: Trey Montalvo Consult Reason/Comments: uti Do you want consulting provider notified?: Yes 12/11/21 12:39 Consult Physician Routine Consulting Provider: Omid Muir Consult Reason/Comments: known to ur service, retension and uti Do you want consulting provider notified?: Yes, Notify in am Primary care physician: Rose Noyola Hospital Course: HISTORY OF PRESENT ILLNESS This is a 71-year-old male patient with past medical history of Parkinson's disease status post intrathecal dopamine pump, hypothyroidism, vitamin D deficiency, detached right retina, chronic neurogenic bladder with Mireles catheter, dysphagia status post PEG tube placement. His neurologist is Dr. Stallworth. Patient was brought into the emergency center due to generalized weakness, bladder cramps, constipation, he has been battling urinary tract infection under the care of Dr. Muir. Patient was diagnosed with acute urinary tract infection and started on IV antibiotics in the form of, seen by infectious disease and urology. Patient is currently on IV vancomycin as he had a MRSA urinary tract. Blood culture is in progress. 12/13: Urine culture is positive for gram-negative bacilli and antibiotics will be changed from Vancomycin to Zosyn and again changed to Cefepime per Dr Montalvo. Patient remains afebrile, heart rate 72, blood pressure 116/60, pulse ox 91-94% on room air. Waiting for urine culture to finalize. 12/14: Urine cultures now showing Pseudomonas and presumptive staph aureus. Blood culture no growth at 48 hours 2 specimens. Patient is continued on cefepime. Patient has been afebrile, heart rate 87, blood pressure 159/74, pulse ox 92% on room air. IV fluids discontinued. Anticipate that urine culture will be finalized tomorrow and most likely plan for discharge tomorrow to subacute rehab. 12/15: Urine culture has finalized with pseudomonas and MRSA. Repeat urinalysis was clear with nitrate and leukoesterase negative and no sign of infection. Dr. Montalvo is recommended no antibiotics at the time of discharge. Blood culture no growth at 72 hours 2 specimens. Patient remains afebrile, heart rate 82, blood pressure 151/65, pulse ox 94% on room air. Patient has been doing very well with physical therapy and discharge plan has changed to home. She will be discharged home today in stable condition. DISCHARGE DIAGNOSES 1. Acute mireles-catheter associated urinary tract infection. 2. Metabolic encephalopathy and generalized weakness secondary to UTI. 3. Parkinson's disease. 4. Moderate protein calorie malnutrition and risk for aspiration, chronic PEG tube. 5. Hypothyroidism. 6. Vitamin D deficiency, stable. 7. Macrocytosis, chronic. DISCHARGE PLAN Home with [facility] care Greater than 35 minutes was utilized and coordinating patient's discharge. Impression and plan of care have been directed as dictated by the signing physician. Sofía Kulkarni nurse practitioner acting as scribe for signing physician. O Patient Condition at Discharge: Stable Plan - Discharge Summary New Discharge Prescriptions: Continue ALPRAZolam [Xanax] 0.5 mg PO 5XD PRN PRN Reason: Anxiety Carbidopa/Levodopa [Duopa 4.63 mg-20 mg/ml Susp] 1.1 ml PEG/G-TUBE DIRECTED PRN PRN Reason: Parkinsons Carbidopa/Levodopa [Duopa 4.63 mg-20 mg/ml Susp] 1.9 ml PEG/G-TUBE DIRECTED Carbidopa-Levodopa 10-100 mg [Sinemet 10-100 mg] 1 tab PO 5XD PRN PRN Reason: if issues w/PEG tube/duopaPUMP Cholecalciferol (Vitamin D3) [Vitamin D3 (125 MCG = 5,000 IU)] 125 mcg PO DAILY cycloSPORINE 0.05% OPHTH SOLN [Restasis] 1 drop BOTH EYES DIRECTED PRN PRN Reason: dry eyes Levothyroxine Sodium [Synthroid] 125 mcg PO DAILY Cyanocobalamin [Vitamin B-12] 1,000 mcg PO DAILY tab amantadine HCL [Amantadine] 100 mg PO BID #60 capsule Tolterodine ER [Detrol LA] 4 mg PO DAILY Discharge Medication List ALPRAZolam [Xanax] 0.5 mg PO 5XD PRN 01/15/18 [History] Levothyroxine Sodium [Synthroid] 125 mcg PO DAILY 08/04/20 [History] Cyanocobalamin [Vitamin B-12] 1,000 mcg PO DAILY tab 08/15/20 [Rx] amantadine HCL [Amantadine] 100 mg PO BID #60 capsule 08/15/20 [Rx] Carbidopa-Levodopa 10-100 mg [Sinemet 10-100 mg] 1 tab PO 5XD PRN 12/11/21 [History] Carbidopa/Levodopa [Duopa 4.63 mg-20 mg/ml Susp] 1.1 ml PEG/G-TUBE DIRECTED PRN 12/11/21 [History] Carbidopa/Levodopa [Duopa 4.63 mg-20 mg/ml Susp] 1.9 ml PEG/G-TUBE DIRECTED 12/11/21 [History] Cholecalciferol (Vitamin D3) [Vitamin D3 (125 MCG = 5,000 IU)] 125 mcg PO DAILY 12/11/21 [History] Tolterodine ER [Detrol LA] 4 mg PO DAILY 12/11/21 [History] cycloSPORINE 0.05% OPHTH SOLN [Restasis] 1 drop BOTH EYES DIRECTED PRN 12/11/21 [History] Follow up Appointment(s)/Referral(s): Rose Noyola MD [Primary Care Provider] - 1 Week (AT [facility]) Trey Montalvo MD [STAFF PHYSICIAN] - 1 Week Discharge Disposition: HOME WITH HOME HEALTH SERVICES
[2021-12-15] MEDS ORDERED: VANCOMYCIN 1,500 MG in SODIUM CHLORIDE 0.9% 250 ML IVPB SCH (18:00)
== END 2021-12-15 12:33 | disposition home health service (06) | DRG 698 ==
LOC: EC 09:53 → 5NMEDONC 11:07
PROVIDERS: ADMIT Internal Medicine; ATTEND Internal Medicine
DX: T83.518A Infection and inflammatory reaction due to other urinary catheter, initial encounter (principal); G93.41 Metabolic encephalopathy; E44.0 Moderate protein-calorie malnutrition; Z43.1 Encounter for attention to gastrostomy; N39.0 Urinary tract infection, site not specified; G20 Parkinson's disease; B96.5 Pseudomonas (aeruginosa) (mallei) (pseudomallei) as the cause of diseases classified elsewhere; B96.1 Klebsiella pneumoniae [K. pneumoniae] as the cause of diseases classified elsewhere; E86.0 Dehydration; N31.9 Neuromuscular dysfunction of bladder, unspecified; R33.8 Other retention of urine; R13.10 Dysphagia, unspecified; Z68.25 Body mass index [BMI] 25.0-25.9, adult; H54.61 Unqualified visual loss, right eye, normal vision left eye; E03.9 Hypothyroidism, unspecified; E55.9 Vitamin D deficiency, unspecified; K59.00 Constipation, unspecified; D75.89 Other specified diseases of blood and blood-forming organs; R26.2 Difficulty in walking, not elsewhere classified; Z79.890 Hormone replacement therapy; Z79.899 Other long term (current) drug therapy; Z87.440 Personal history of urinary (tract) infections; Z96.82 Presence of neurostimulator; Z86.69 Personal history of other diseases of the nervous system and sense organs; Z86.14 Personal history of Methicillin resistant Staphylococcus aureus infection; Z71.3 Dietary counseling and surveillance; Z88.2 Allergy status to sulfonamides; Y84.6 Urinary catheterization as the cause of abnormal reaction of the patient, or of later complication, without mention of misadventure at the time of the procedure
CPT/HCPCS: 36415; 80048; 80053; 81001; 81003; 82565; 83605; 83735; 85025; 85610; 85730; 87040; 87077; 87086; 87186; 93005; 96361; 96365; 96367; 99285